=== PATIENT | female | born 1980 | race Caucasian/White ===

== ENCOUNTER 2020-01-23 02:28 | Observation (INO) | payer BC, OTHER ==
[2020-01-23] VITALS (7 sets, daily range): BP systolic 130–174; BP diastolic 69–88
[~2020-01-23] VITALS: Ht 167 cm; Wt 158.0 kg
[2020-01-23] MEDS ORDERED: METOCLOPRAMIDE INJ 10 MG/2 ML (REGLAN) IVP STA (02:50)
[2020-01-23] MEDS ORDERED: NS IV 1000 ML 1,000 ML IV STA (02:50)
--- NOTE | 2020-01-23 02:50 | ED Abdominal Pain ---
General Chief Complaint: Abdominal/GI Problems Stated Complaint: NAUSEA/VOMITTING Source of Information: Patient History of Present Illness Date Seen by Provider: Jan 23, 2020 Time Seen by Provider: 02:42 Initial Comments 39-year-old female presents because she "can't take it anymore" patient reports abdominal cramping, nausea vomiting diarrhea. Patient is having symptoms for approximately 2-1/2-3 days. No reports of fever. The pain is in the left upper quadrant and epigastric region. Patient has had a cholecystectomy. No reports of fever, cough or other systemic complaints. Allergies and Home Medications Allergies Coded Allergies: Sulfa (Sulfonamide Antibiotics) (Verified Allergy, Unknown, 01/23/20) Patient Home Medication List Home Medication List Reviewed: Yes Review of Systems Review of Systems Constitutional: No chills, No fever EENTM: No Symptoms Reported Respiratory: Denies Cough Cardiovascular: Denies Chest Pain Gastrointestinal: Abdominal Pain, Diarrhea, Nausea, Vomiting Musculoskeletal: no symptoms reported Skin: no symptoms reported Psychiatric/Neurological: No Symptoms Reported Past Ctwsjae-Wpouqj-Mectqt Hx Past Med/Social Hx: Reviewed Nursing Past Med/Soc Hx Patient Social History Recent Foreign Travel: No Contact w/Someone Who Travel: No Physical Exam Vital Signs Vital Signs - First Documented 01/23/20 02:37 Temp 37.2 Pulse 124 Resp 18 B/P (MAP) 160/111 (127) Pulse Ox 94 O2 Delivery Room Air Capillary Refill : Height/Weight/BMI Height: '" Weight: lbs. oz. kg; BMI Method: General Appearance: no apparent distress, obese Respiratory: chest non-tender, lungs clear, normal breath sounds Cardiovascular: normal peripheral pulses, regular rate, rhythm Gastrointestinal: soft; No distended, No guarding, No rebound; tenderness (RUQ. epigastric ) Extremities: normal range of motion, non-tender Back: no vertebral tenderness; No CVA tenderness (R), No CVA tenderness (L) Neurologic/Psychiatric: colorist formulator II-XII nml as tested, oriented x 3 Skin: normal color, warm/dry Progress/Results/Core Measures Results/Orders Lab Results Laboratory Tests Test 01/23/20 02:50 01/23/20 03:20 Range/Units White Blood Count 14.0 H 4.3-11.0 10^3/uL Red Blood Count 4.76 4.35-5.85 10^6/uL Hemoglobin 12.9 11.5-16.0 G/DL Hematocrit 41 35-52 % Mean Corpuscular Volume 86 80-99 FL Mean Corpuscular Hemoglobin 27 25-34 PG Mean Corpuscular Hemoglobin Concent 32 32-36 G/DL Red Cell Distribution Width 16.3 H 10.0-14.5 % Platelet Count 418 H 130-400 10^3/uL Mean Platelet Volume 9.1 7.4-10.4 FL Neutrophils (%) (Auto) 87 H 42-75 % Lymphocytes (%) (Auto) 8 L 12-44 % Monocytes (%) (Auto) 4 0-12 % Eosinophils (%) (Auto) 0 0-10 % Basophils (%) (Auto) 0 0-10 % Neutrophils # (Auto) 12.2 H 1.8-7.8 X 10^3 Lymphocytes # (Auto) 1.1 1.0-4.0 X 10^3 Monocytes # (Auto) 0.6 0.0-1.0 X 10^3 Eosinophils # (Auto) 0.1 0.0-0.3 10^3/uL Basophils # (Auto) 0.0 0.0-0.1 10^3/uL Neutrophils % (Manual) 86 % Lymphocytes % (Manual) 4 % Monocytes % (Manual) 6 % Eosinophils % (Manual) 1 % Reactive Lymphocytes 3 % Sodium Level 139 135-145 MMOL/L Potassium Level 3.8 3.6-5.0 MMOL/L Chloride Level 100 98-107 MMOL/L Carbon Dioxide Level 23 21-32 MMOL/L Anion Gap 16 H 5-14 MMOL/L Blood Urea Nitrogen 17 7-18 MG/DL Creatinine 0.74 0.60-1.30 MG/DL Estimat Glomerular Filtration Rate > 60 BUN/Creatinine Ratio 23 Glucose Level 141 H 70-105 MG/DL Calcium Level 9.4 8.5-10.1 MG/DL Corrected Calcium 9.2 8.5-10.1 MG/DL Total Bilirubin 0.5 0.1-1.0 MG/DL Aspartate Amino Transf (AST/SGOT) 15 5-34 U/L Alanine Aminotransferase (ALT/SGPT) 12 0-55 U/L Alkaline Phosphatase 101 40-136 U/L Total Protein 9.2 H 6.4-8.2 GM/DL Albumin 4.3 3.2-4.5 GM/DL Lipase 15 8-78 U/L Urine Color DARK YELLOW Urine Clarity SLIGHTLY CLOUDY Urine pH 6.0 5-9 Urine Specific [place] >=1.030 1.016-1.022 Urine Protein 1+ H NEGATIVE Urine Glucose (UA) NEGATIVE NEGATIVE Urine Ketones 2+ H NEGATIVE Urine Nitrite NEGATIVE NEGATIVE Urine Bilirubin 2+ H NEGATIVE Urine Urobilinogen 1.0 < = 1.0 MG/DL Urine Leukocyte Esterase NEGATIVE NEGATIVE Urine RBC (Auto) 1+ H NEGATIVE Urine RBC NONE /HPF Urine WBC 5-10 H /HPF Urine Squamous Epithelial Cells >50 H /HPF Urine Crystals NONE /LPF Urine Bacteria MODERATE H /HPF Urine Casts NONE /LPF Urine Mucus LARGE H /LPF Urine Yeast FEW H /HPF Urine Culture Indicated YES My Orders Orders - TEGAN RIVERA DO Comprehensive Metabolic Panel (01/23/20 02:50) Lipase (01/23/20 02:50) Ua Culture If Indicated (01/23/20 02:50) Ed Iv/Invasive Line Start (01/23/20 02:50) Acute Abd Series (01/23/20 02:50) Cbc With Automated Diff (01/23/20 02:50) Metoclopramide Injection (Reglan Injecti (01/23/20 02:50) Ns Iv 1000 Ml (Sodium Chloride 0.9%) (01/23/20 02:50) Ketorolac Injection (Toradol Injection) (01/23/20 03:00) Manual Differential (01/23/20 02:50) Urine Culture (01/23/20 03:20) Hyoscyamine Sl Tablet (Levsin Sl Tablet) (01/23/20 03:45) Dicyclomine Injection (Bentyl Injection) (01/23/20 03:45) Ct Abdomen/Pelvis W (01/23/20 03:43) Iohexol Injection (Omnipaque 350 Mg/Ml 1 (01/23/20 04:00) Ns (Ivpb) (Sodium Chloride 0.9% Ivpb Bag (01/23/20 04:00) Medications Given in ED Current Medications Medications Dose Ordered Sig/Wilner Route Start Time Stop Time Status Last Admin Dose Admin Dicyclomine HCl 20 mg ONCE ONCE IM 01/23/20 03:45 01/23/20 03:46 DC 01/23/20 03:48 20 MG Hyoscyamine Sulfate 0.125 mg ONCE ONCE SL 01/23/20 03:45 01/23/20 03:46 DC 01/23/20 03:48 0.125 MG Iohexol 100 ml ONCE ONCE IV 01/23/20 04:00 01/23/20 04:01 DC 01/23/20 04:20 100 ML Ketorolac Tromethamine 15 mg ONCE ONCE IVP 01/23/20 03:00 01/23/20 03:01 DC 01/23/20 02:57 15 MG Sodium Chloride 100 ml ONCE ONCE IV 01/23/20 04:00 01/23/20 04:01 DC 01/23/20 04:20 100 ML Vital Signs/I&O 01/23/20 02:37 Temp 37.2 Pulse 124 Resp 18 B/P (MAP) 160/111 (127) Pulse Ox 94 O2 Delivery Room Air Progress Progress Note : Time: 05:24 Progress Note Patient with 2 ventral abdominal wall hernias. There is some inflammation and fat stranding. There is questionable incarceration. Patient to be transferred to [facility] for admission by Dr. Richey. Diagnostic Imaging Diagonstic Imaging: Xray, CT Plain Films/CT/US/NM/MRI: abdomen Comments Patient with 2 ventral wall hernias with inflammation and stranding. Qu estionable incarceration Reviewed: Reviewed Night Osiel Study, Reviewed by Me Departure Communication (Admissions) Time/Spoke to Admitting Phy: 05:20 Impression Primary Impression: Abdominal wall hernia Additional Impression: Enteritis Disposition: ADMITTED INPATIENT Condition: Stable Admissions Decision to Admit Reason: Admit from ER (General) Decision to Admit/Date: Jan 23, 2020 Time/Decision to Admit Time: 05:20 Transfer Method of Transfer: EMS Departure-Patient Inst. Referrals: NO,LOCAL PHYSICIAN (PCP/Family) Primary Care Physician TEGAN RIVERA DO Jan 23, 2020 02:50
[2020-01-23 02:59] LABS: HEMATOCRIT 41 % (35-52); HEMOGLOBIN 12.9 G/DL (11.5-16.0); MEAN CORPUSCULAR HEMOGLOBIN 27 PG (25-34); MEAN CORPUSCULAR HGB CONC 32 G/DL (32-36); MEAN CORPUSCULAR VOLUME 86 FL (80-99); PLATELET COUNT 418 10^3/uL (130-400); RED CELL DISTRIBUTION WIDTH 16.3 % (10.0-14.5)
[2020-01-23 03:00] LABS: BASOPHILS % (AUTO) 0 % (0-10); EOSINOPHILS # (AUTO) 0.1 10^3/uL (0.0-0.3); EOSINOPHILS % (AUTO) 0 % (0-10); LYMPHOCYTES # (AUTO) 1.1 X 10^3 (1.0-4.0); LYMPHOCYTES % (AUTO) 8 % (12-44); MEAN PLATELET VOLUME 9.1 FL (7.4-10.4); MONOCYTES # (AUTO) 0.6 X 10^3 (0.0-1.0); MONOCYTES % (AUTO) 4 % (0-12); NEUTROPHILS # (AUTO) 12.2 X 10^3 (1.8-7.8); NEUTROPHILS % (AUTO) 87 % (42-75)
[2020-01-23] MEDS ORDERED: KETOROLAC 30 MG/ML VIAL IVP ONE (03:00)
[2020-01-23 03:15] LABS: ALANINE AMINOTRANSFERASE 12 U/L (0-55); ALKALINE PHOSPHATASE 101 U/L (40-136); BILIRUBIN,TOTAL 0.5 MG/DL (0.1-1.0); BUN/CREATININE RATIO 23; CALCIUM 9.4 MG/DL (8.5-10.1); CARBON DIOXIDE 23 MMOL/L (21-32); CHLORIDE 100 MMOL/L (98-107); CREATININE SERUM 0.74 MG/DL (0.60-1.30); GFR ESTIMATED > 60; GLUCOSE 141 MG/DL (70-105); POTASSIUM 3.8 MMOL/L (3.6-5.0); SODIUM 139 MMOL/L (135-145); TOTAL PROTEIN 9.2 GM/DL (6.4-8.2)
[2020-01-23 03:16] LABS: ALBUMIN 4.3 GM/DL (3.2-4.5); LIPASE 15 U/L (8-78)
[2020-01-23 03:29] LABS: CLARITY,URINE SLIGHTLY CLOUDY; COLOR,URINE DARK YELLOW; GLUCOSE, URINE (UA) NEGATIVE (NEGATIVE); PROTEIN,URINE 1+ (NEGATIVE)
[2020-01-23 03:29] LABS: EOSINOPHILS % (MANUAL) 1 %; LYMPHOCYTES % (MANUAL) 4 %; MONOCYTES % (MANUAL) 6 %; NEUTROPHILS % (MANUAL) 86 %; REACTIVE LYMPHOCYTES 3 %
[2020-01-23 03:30] LABS: BACTERIA,URINE MODERATE /HPF; BILIRUBIN,URINE 2+ (NEGATIVE); KETONES,URINE 2+ (NEGATIVE); LEUKOCYTE ESTERASE ,URINE NEGATIVE (NEGATIVE); NITRITE,URINE NEGATIVE (NEGATIVE); SQUAMOUS EPITHELIAL CELL,UR >50 /HPF
[2020-01-23 03:31] LABS: YEAST,URINE FEW /HPF
[2020-01-23] MEDS ORDERED: HYOSCYAMINE 0.125 MG (LEVSIN) TAB SL ONE (03:45)
[2020-01-23] MEDS ORDERED: DICYCLOMINE 10 MG/ML (BENTYL) 2 ML AMP IM ONE (03:45)
[2020-01-23] MEDS ORDERED: IOHEXOL 350 MG/ML 100 ML (OMNIPAQUE 350) VIAL IV ONE (04:00)
[2020-01-23] MEDS ORDERED: NS 100 ML (IVPB) BAG IV ONE (04:00)
[2020-01-23] MEDS ORDERED: NS IV 1000 ML 1,000 ML IV SCH (05:25)
--- NOTE | 2020-01-23 06:32 | Diagnostic Imaging Report ---
PROCEDURE: CT abdomen and pelvis with contrast. TECHNIQUE: Multiple contiguous axial images were obtained through the abdomen and pelvis after administration of intravenous contrast. Auto Exposure Controls were utilized during the CT exam to meet ALARA standards for radiation dose reduction. Indication: Mid abdominal pain with vomiting and diarrhea. Comparison: None. Discussion: The lung bases are unremarkable. Normal heart size. No pleural or pericardial fluid. Fatty liver is noted. The gallbladder surgically absent. Mild fatty atrophy of the pancreas. The stomach, spleen, and adrenal glands are unremarkable. No renal stone or hydronephrosis. The aorta is normal in caliber. Uterus is surgically absent. Urinary bladder is decompressed. No evidence for appendicitis. There are 2 ventral hernias noted, one near the umbilicus and the other near the pubis symphysis. Both of these contain fat and small bowel loops which are mildly thick-walled. Wall thickening could be secondary to enteritis or early incarceration. There is mild free fluid noted within the periumbilical hernia. Recommend surgical consultation. No high-grade obstruction identified. No pneumatosis or pneumoperitoneum. No pathologically enlarged lymph nodes identified. No osseous abnormality. Impression: 1. There are 2 ventral hernias noted within the lower abdominal wall which both contain thick-walled small bowel loops. A periumbilical hernia also contains a small amount of fluid. No high-grade obstruction identified. Early incarceration is not excluded. Additionally enteritis is not excluded. Recommend surgical consultation. 2. Agree with preliminary report. Dictated by: Dictated on workstation # [id number]
--- NOTE | 2020-01-23 06:45 | NUR ---
PIA GARCIA admitted to room 430-1, with an admitting diagnosis of ventral wall hernia, bowel inflammation, on 01/23/20 from [place] via cart, accompanied by EMS.PIA GARCIA introduced to surroundings, call light, bed controls, phone, TV, temperature control, lights, meal times, smoking policy, visitor policy, side rail policy, bathrooms and showers. Patient Rights given to patient in the handbook. PIA GARCIA verbalizes understanding that [facility] is not responsible for the loss or damage to any personal effects or valuables that are kept in the patients posession during their hospitalization.
--- NOTE | 2020-01-23 07:12 | Diagnostic Imaging Report ---
Indication: Abdominal pain. Comparison: None. Discussion: Supine and upright views of the abdomen were obtained. The heart and lungs are unremarkable. The gallbladder appears to be surgically absent. A nondilated gas-filled colon is noted on the left. No abnormal small bowel loops are identified. No pneumatosis or pneumoperitoneum. No osseous abnormality or pathologic calcification. Impression: 1. Nonobstructive bowel gas pattern. Dictated by: Dictated on workstation # [id number]
[2020-01-23] MEDS ORDERED: CATHETER FLUSH 10 ML SYR IV PRN (07:15)
--- NOTE | 2020-01-23 07:49 | History & Physical-Surgical ---
LULY TRAVIS MEDICAL STUDENT 01/23/20 0749: History of Present Illness History of Present Illness Reason for visit/HPI CC: Abdominal Pain HPI: Verónica Olivarez is a 39 y/o female. She presents to [facility] today, sent from [facility], for consultation on her multiple hernias. No family at bedside. Pt states she has been having abdominal pain and cramping for the past 3 days. She states the pain is in a "band" across her upper abdominal region as well as her umbilicus. Pt states the pain is sharp, and comes and goes. She states the pain radiates to her right back. She states movement and eating makes the pain worse. She states the pain is a 5/[address] on the [address] scale. CT abdomen showed 2 ventral hernias in the lower abdominal wall, as well s periumbilical hernia. The ED was worried about possible incarceration and enteritis. Pt states she is nauseated, had a vomiting episode earlier this morning, has diarrhea Pt denies fever, chest pain, SOB, chills Date of Admission Jan 23, 2020 at 05:30 Date Seen by a Provider: Jan 23, 2020 Time Seen by a Provider: 07:20 I consulted on this patient on 01/23/20 07:44 Attending Physician Madi Richey DO Admitting Physician No,Local Physician Consult Allergies and Home Medications Allergies Coded Allergies: Sulfa (Sulfonamide Antibiotics) (Verified Allergy, Unknown, 01/23/20) Home Medications Alprazolam 1 Mg Tablet, 1 MG PO PRN PRN for ANXIETY, (Reported) Aripiprazole 10 Mg Tablet, 10 MG PO DAILY, (Reported) Duloxetine HCl 60 Mg Capsule.dr, 60 MG PO DAILY, (Reported) Levothyroxine Sodium 137 Mcg Tablet, 137 MCG PO DAILY, (Reported) Tramadol HCl 50 Mg Tablet, 50 MG PO PRN PRN for PAIN-MILD (1-4), (Reported) Past Wbnywyq-Epbdax-Raocbb Hx Patient Social History Alcohol Use: Rarely Uses Recreational Drug Use: No Smoking Status: Current Everyday Smoker 2nd Hand Smoke Exposure: Yes Recent Foreign Travel: No Contact w/Someone Who Travel: No Recent Infectious Disease Expo: No Recent Hopitalizations: No Immunizations Up To Date Date of Influenza Vaccine: Nov 24, 2019 Surgeries History of Surgeries: Yes Surgeries: Section, Gallbladder, Hysterectomy Respiratory History of Respiratory Disorde: No Cardiovascular History of Cardiac Disorders: No Neurological History of Neurological Disord: No Genitourinary History of Genitourinary Disor: No Gastrointestinal History of Gastrointestinal Di: No Musculoskeletal History of Musculoskeletal Dis: No Endocrine History of Endocrine Disorders: No HEENT History of HEENT Disorders: No Cancer History of Cancer: No Psychosocial History of Psychiatric Problem: Yes Behavioral Health Disorders: Anxiety, Depression Integumentary History of Skin or Integumenta: No Blood Transfusions History of Blood Disorders: No Review of Systems Constitutional: No chills, No diaphoresis, No dizziness, No fever EENTM: No hearing loss, No ear pain, No vision loss Respiratory: No hemoptysis, No short of breath Cardiovascular: No chest pain (minimal right leg swelling); edema (minimal right leg swelling) Gastrointestinal: abdominal pain (LUQ, RUQ), diarrhea, nausea, vomiting Genitourinary: No dysuria, No frequency Musculoskeletal: back pain; No gout Skin: No change in color, No change in hair/nails Psychiatric/Neurological: Anxiety, Depressed, Headache Physical Exam Vital Signs Vital Signs - First Documented 01/23/20 02:37 Temp 37.2 Pulse 124 Resp 18 B/P (MAP) 160/111 (127) Pulse Ox 94 O2 Delivery Room Air Capillary Refill : Less Than 3 Seconds Height, Weight, BMI Height: '" Weight: lbs. oz. kg; 56.00 BMI Method: General Appearance: No Apparent Distress HEENT: PERRL/EOMI, TMs Normal Neck: Full Range of Motion, Normal Inspection Respiratory: Chest Non Tender, Lungs Clear, Normal Breath Sounds Cardiovascular: No JVD, No Murmur, Tachycardia Gastrointestinal: Soft, Hernia, Tenderness (ventral and periumbilical) Back: Normal Inspection; No Muscle Spasm Extremity: Normal Inspection, Normal Range of Motion, No Calf Tenderness, Pedal Edema (minimal) Neurologic/Psychiatric: Alert, Normal Mood/Affect Skin: Normal Color, Warm/Dry Lymphatic: No Adenopathy Data Review Labs Laboratory Tests 01/23/20 02:50: White Blood Count 14.0H, Red Blood Count 4.76, Hemoglobin 12.9, Hematocrit 41, Mean Corpuscular Volume 86, Mean Corpuscular Hemoglobin 27, Mean Corpuscular Hemoglobin Concent 32, Red Cell Distribution Width 16.3H, Platelet Count 418H, Mean Platelet Volume 9.1, Neutrophils (%) (Auto) 87H, Lymphocytes (%) (Auto) 8L, Monocytes (%) (Auto) 4, Eosinophils (%) (Auto) 0, Basophils (%) (Auto) 0, Neutrophils # (Auto) 12.2H, Lymphocytes # (Auto) 1.1, Monocytes # (Auto) 0.6, Eosinophils # (Auto) 0.1, Basophils # (Auto) 0.0, Neutrophils % (Manual) 86, Lymphocytes % (Manual) 4, Monocytes % (Manual) 6, Eosinophils % (Manual) 1, Reactive Lymphocytes 3, Sodium Level 139, Potassium Level 3.8, Chloride Level 100, Carbon Dioxide Level 23, Anion Gap 16H, Blood Urea Nitrogen 17, Creatinine 0.74, Estimat Glomerular Filtration Rate > 60, BUN/Creatinine Ratio 23, Glucose Level 141H, Calcium Level 9.4, Corrected Calcium 9.2, Total Bilirubin 0.5, Aspartate Amino Transf (AST/SGOT) 15, Alanine Aminotransferase (ALT/SGPT) 12, Alkaline Phosphatase 101, Total Protein 9.2H, Albumin 4.3, Lipase 15 01/23/20 03:20: Urine Color DARK YELLOW, Urine Clarity SLIGHTLY CLOUDY, Urine pH 6.0, Urine Specific [place] >=1.030, Urine Protein 1+H, Urine Glucose (UA) NEGATIVE, Urine Ketones 2+H, Urine Nitrite NEGATIVE, Urine Bilirubin 2+H, Urine Urobilinogen 1.0, Urine Leukocyte Esterase NEGATIVE, Urine RBC (Auto) 1+H, Urine RBC NONE, Urine WBC 5-10H, Urine Squamous Epithelial Cells >50H, Urine Crystals NONE, Urine Bacteria MODERATEH, Urine Casts NONE, Urine Mucus LARGEH, Urine Yeast FEWH , Urine Culture Indicated YES Clinical Quality Measures DVT/VTE Risk/Contraindication: Risk Factor Score Per Nursin RFS Level Per Nursing on Admit: 2=Moderate MADI RICHEY DO 01/23/20 1115: History of Present Illness History of Present Illness Reason for visit/HPI 39 year old female who has been having abdominal pain since Saturday. Patient states it is cramping twisting pain that varies in location along the top of her abdomen. She has nausea, vomiting and diarrhea. Since having more diarrhea she is feeling better. She rates the pain at a 5/10. Radiates into back on occasion. Patient states that the diarrhea seems to have made things better, Nothing she knows of really made worse. Patient has 2 hernias that she believes she has had for about 2 years. They are not causing any pain or discomfort at this time. She has a ct scan showing 2 incisional hernia one below umbilicus and other just above the pubic symphisis containing bowel. The small bowel has slight appearance of enteritis. Allergies and Home Medications Allergies Coded Allergies: Sulfa (Sulfonamide Antibiotics) (Verified Allergy, Unknown, 01/23/20) Home Medications Alprazolam 1 Mg Tablet, 1 MG PO PRN PRN for ANXIETY, (Reported) Aripiprazole 10 Mg Tablet, 10 MG PO DAILY, (Reported) Duloxetine HCl 60 Mg Capsule.dr, 60 MG PO DAILY, (Reported) Levothyroxine Sodium 137 Mcg Tablet, 137 MCG PO DAILY, (Reported) Tramadol HCl 50 Mg Tablet, 50 MG PO PRN PRN for PAIN-MILD (1-4), (Reported) Patient Home Medication List Home Medication List Reviewed: Yes Past Wosdefr-Tmfgrv-Yqxaia Hx Patient Social History Smoking Status: Current Everyday Smoker Type Used: Cigarettes Surgeries History of Surgeries: Yes Surgeries: Section, Gallbladder Reviewed Nursing Assessment Reviewed/Agree w Nursing PMH: Yes Family Medical History Significant Family History: No Pertinent Family Hx Review of Systems Constitutional: No chills, No diaphoresis, No dizziness, No fever EENTM: No hearing loss, No ear pain, No vision loss Respiratory: No dyspnea on exertion, No hemoptysis, No short of breath Cardiovascular: No chest pain (minimal right leg swelling) Gastrointestinal: abdominal pain (LUQ), diarrhea, nausea, vomiting Genitourinary: no symptoms reported; No dysuria, No frequency Musculoskeletal: back pain; No gout Skin: No change in color, No change in hair/nails Psychiatric/Neurological: Anxiety, Depressed, Headache Physical Exam General Appearance: No Apparent Distress HEENT: PERRL/EOMI, TMs Normal Neck: Full Range of Motion, Normal Inspection Respiratory: Chest Non Tender, No Accessory Muscle Use, No Respiratory Distress Cardiovascular: Regular Rate, Rhythm Gastrointestinal: Soft, Hernia (reducible incisonal x 2), Tenderness (along upper abdomen, left upper quadrant and epigastric area) Rectal: Deferred Neurologic/Psychiatric: Alert, Oriented x3, No Motor/Sensory Deficits, Normal Mood/Affect Skin: Normal Color, Warm/Dry Lymphatic: No Adenopathy Assessment/Plan Assessment/Plan Admission Diagonsis nausea vomiting diarrhea left upper quadrant epigastric abdominal pain enteritis incisional hernia x 2 Admission Status: Observation Assessment/Plan nausea vomiting diarrhea left upper quadrant epigastric abdominal pain enteritis incisional hernia x 2 Patient pain not associated with location of hernia, I feel most likely enteritis. IV fluids, bowel rest no surgical intervention at this time repeat labs in am. Supervisory-Addendum Brief Verification & Attestation Participated in pt care: history, MDM, physical Personally performed: exam, history, MDM, supervision of care Care discussed with: Medical Student Procedures: n/a Results interpretation: Verified all documentation Verification and Attestation of Medical Student E/M Service A medical student performed and documented this service in my presence. I reviewed and verified all information documented by the medical student and made modifications to such information, when appropriate. I personally performed the physical exam and medical decision making. Madi Richey, Jan 23, 2020,11:24 LULY TRAVIS MEDICAL STUDENT Jan 23, 2020 07:49 MADI RICHEY DO Jan 23, 2020 11:15
[2020-01-23] MEDS: NS IV 1000 ML 1,000 ML IV SCH ×3 (07:50→18:54)
[2020-01-23] MEDS ORDERED: ARIP10TA10 PO (09:17)
[2020-01-23] MEDS: ONDANSETRON 4 MG/2 ML (SDV) Z0FRAN IV PRN ×3 (09:20→18:53)
[2020-01-23] MEDS ORDERED: DULO60CA6 PO (09:31)
[2020-01-23] MEDS ORDERED: LEVO137T2 PO (09:31)
[2020-01-23] MEDS ORDERED: ALPR1TAB2 PO (09:34)
[2020-01-23] MEDS ORDERED: TRAM50TA3 PO (09:35)
--- NOTE | 2020-01-23 10:40 | NUR ---
DR HENDRICKSON NOTIFIED OF CONSULT
[2020-01-23] MEDS ORDERED: ENOXAPARIN 40 MG/0.4 ML (LOVENOX) SYR SQ SCH (14:45)
[2020-01-23] MEDS ORDERED: ALPRAZolam 1 MG (XANAX) TAB PO PRN (15:00)
--- NOTE | 2020-01-23 15:00 | Consultation - Hospitalist ---
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 Presents with vomiting that began 3 days ago. Diarrhea started yesterday with multiple foul smelling stools. Her abdomen had been very distended and tender especially on the left side. That is getting better. She is sitting up in a chair currently and appears to be in no distress. Source: patient Exam Limitations: no limitations Date Seen 01/23/20 Attending Physician Ramón Richey DO PCP Jazmin,Local Physician Referring Physician Rossi Date of Admission Jan 23, 2020 at 05:30 Home Medications & Allergies Home Medications Reviewed patient Home Medication Reconciliation performed by pharmacy medication reconciliations injection mold tooling technician and/or nursing. Patients Allergies have been reviewed. Allergies Allergies Coded Allergies Sulfa (Sulfonamide Antibiotics) (Verified Allergy, Unknown, 01/23/20) Past Rbfjljr-Pvtqga-Kbisxg Hx Past Med/Social Hx: Reviewed Nursing Past Med/Soc Hx Patient Social History Marrital Status: Employed/Student: employed Alcohol Use: Rarely Uses Recreational Drug Use: No Smoking Status: Current Everyday Smoker Type Used: Cigarettes 2nd Hand Smoke Exposure: Yes Recent Foreign Travel: No Contact w/other who traveled: No Recent Hopitalizations: No Recent Infectious Disease Expo: No Immunizations Up To Date Date of Influenza Vaccine: Nov 24, 2019 Past Medical History Surgeries: Section, Gallbladder Psychosocial: Anxiety, Depression History of Blood Disorders: No Family History No Pertinent Family Hx Review of Systems Constitutional: see HPI EENTM: no symptoms reported Respiratory: no symptoms reported Cardiovascular: no symptoms reported Gastrointestinal: abdominal pain (LUQ), diarrhea, nausea, vomiting Genitourinary: no symptoms reported Skin: no symptoms reported Psychiatric/Neurological: Depressed (since she hasn't been able to take her medication for 4 days) Physical Exam Physical Exam Vital Signs Vital Signs - First Documented 01/23/20 02:37 Temp 37.2 Pulse 124 Resp 18 B/P (MAP) 160/111 (127) Pulse Ox 94 O2 Delivery Room Air Capillary Refill : Less Than 3 Seconds Height, Weight, BMI Height: '" Weight: lbs. oz. kg; 56.00 BMI Method: General Appearance: No Apparent Distress, Obese HEENT: PERRL/EOMI, TMs Normal Neck: Full Range of Motion, Normal Inspection Respiratory: Chest Non Tender, No Accessory Muscle Use, No Respiratory Distress Cardiovascular: Regular Rate, Rhythm Gastrointestinal: Soft, Abnormal Bowel Sounds, Hernia (reducible incisonal x 2), Tenderness (along upper abdomen, left upper quadrant and epigastric area) Rectal: Deferred Back: Normal Inspection; No Muscle Spasm Extremity: Normal Inspection, Normal Range of Motion, No Calf Tenderness, Pedal Edema (minimal) Neurologic/Psychiatric: Alert, Oriented x3, No Motor/Sensory Deficits, Normal Mood/Affect Skin: Normal Color, Warm/Dry Lymphatic: No Adenopathy Results Results/Procedures Labs Laboratory Tests 01/23/20 02:50 Patient resulted labs reviewed. Imaging: Reviewed Imaging Report Assessment/Plan Assessment and Plan Assess & Plan/Chief Complaint abdominal pain resolving Vomiting with nausea resolving Diarrhea worsening History of depression No evidence of bowel obstruction at this time however she may have a resolving obstruction from adhesions. 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 Thank you for this consult will follow with you and restart her home medications Clinical Quality Measures DVT/VTE Risk/Contraindication: Risk Factor Score Per Nursin RFS Level Per Nursing on Admit: 2=Moderate AZEB HENDRICKSON MD Jan 23, 2020 14:59
--- NOTE | 2020-01-23 15:13 | NUR ---
ATTEMPTED TO CALL [facility] IN [place] TO CLARIFY DOSE NEEDED FOR HOME MEDS. PHARMACY IS CLOSED UNTIL SATURDAY
--- NOTE | 2020-01-23 15:21 | NUR ---
OK FOR PT TO HAVE PAUL AND NAZARIO PO PER DR BELTRÁN
[2020-01-23] MEDS: DULoxetine 30 MG (CYMBALTA) CAP PO SCH (15:23)
[2020-01-23] MEDS: ENOXAPARIN 60 MG/0.6 ML (LOVENOX) SYR SC SCH (16:20)
--- NOTE | 2020-01-23 17:50 | NUR ---
OK FOR PT TO RECEIVE PO FLAGYL AND LEVOTHYROXINE PER DR HENDRICKSON
--- NOTE | 2020-01-23 18:42 | NUR ---
PHARMACY CALLED FOR MED VERIFICATION X4 NO ANSWER.
[2020-01-23] MEDS: metroNIDAZOLE 500 MG (FLAGYL) TAB PO SCH ×2 (18:53→23:41)
[2020-01-23] MEDS: PROMETHAZINE INJ 25 MG/ML (PHENERGAN) AMP IVP PRN (21:00)
[2020-01-23] MEDS: ALPRAZolam 1 MG (XANAX) TAB PO PRN (23:41)
[2020-01-24] VITALS (8 sets, daily range): BP systolic 133–175; BP diastolic 78–99
[2020-01-24] MEDS: NS IV 1000 ML 1,000 ML IV SCH ×2 (01:19→08:18)
[2020-01-24] MEDS: ENOXAPARIN 60 MG/0.6 ML (LOVENOX) SYR SC SCH ×2 (05:19→18:09)
[2020-01-24] MEDS: LEVOTHYROXINE 112 MCG (LEVOTHROID) TAB PO SCH (05:19)
[2020-01-24] MEDS: metroNIDAZOLE 500 MG (FLAGYL) TAB PO SCH ×4 (05:19→23:59)
[2020-01-24] MEDS: LEVOTHYROXINE 25 MCG (LEVOTHROID) TAB PO SCH (05:19)
[2020-01-24 05:41] LABS: HEMOGLOBIN 11.4 G/DL (11.5-16.0); MEAN PLATELET VOLUME 9.3 FL (7.4-10.4); RED CELL DISTRIBUTION WIDTH 16.7 % (10.0-14.5); WHITE BLOOD COUNT 4.3 10^3/uL (4.3-11.0)
[2020-01-24 06:09] LABS: BUN/CREATININE RATIO 18; CALCIUM 7.7 MG/DL (8.5-10.1); CARBON DIOXIDE 18 MMOL/L (21-32); CHLORIDE 111 MMOL/L (98-107); CREATININE SERUM 0.71 MG/DL (0.60-1.30); GFR ESTIMATED > 60; GLUCOSE 84 MG/DL (70-105); MAGNESIUM 2.1 MG/DL (1.6-2.4); POTASSIUM 3.4 MMOL/L (3.6-5.0); SODIUM 139 MMOL/L (135-145)
[2020-01-24] MEDS: ONDANSETRON 4 MG/2 ML (SDV) Z0FRAN IV PRN ×4 (07:24→23:59)
[2020-01-24] MEDS: DULoxetine 30 MG (CYMBALTA) CAP PO SCH (08:17)
--- NOTE | 2020-01-24 08:38 | Progress Note - Surgery ---
LULY TRAVIS MEDICAL STUDENT 01/24/20 0838: Subjective Date Seen by a Provider: Jan 24, 2020 Time Seen by a Provider: 07:40 Subjective/Events-last exam Patient is alert and in no acute distress. No family at bedside Patient states her pain has gone down and she is feeling much better. She states her mental status and body are doing better than yesterday. Pt states she still has nausea and a headache, but she has had no vomiting episodes and no diarrhea this morning. Pt is currently NPO and wonders if she can have liquids No other questions or concerns at this time Patient had positive antigens for C.Diff but was negative for toxins A &B. C.diff precautions being taken. Further testing to be done. Pt denies fever, chest pain, SOB, constipation, chills Review of Systems General: No Chills, No Night Sweats HEENT: Head Aches; No Eye Pain Pulmonary: No Dyspnea, No Cough Cardiovascular: No: Chest Pain, Palpitations Gastrointestinal: Nausea; No: Vomiting, Abdominal Pain, Diarrhea Genitourinary: No Dysuria Musculoskeletal: No: neck pain, shoulder pain Neurological: No: Weakness, Numbness Objective Exam Vital Signs Date Time Temp Pulse Resp B/P (MAP) Pulse Ox O2 Delivery O2 Flow Rate FiO2 01/24/20 07:50 36.9 100 17 139/86 (103) 94 Room Air 01/24/20 03:37 36.0 101 17 141/83 (102) 94 Room Air 01/24/20 00:09 36.2 100 15 153/83 (106) 93 Room Air 01/23/20 20:00 Room Air 01/23/20 19:48 36.6 109 18 134/88 (103) 93 Room Air 01/23/20 17:33 36.7 102 18 141/81 93 Room Air 01/23/20 15:32 36.7 102 18 141/81 (101) 93 Room Air 01/23/20 11:27 36.1 72 17 174/79 (110) 91 Room Air 01/23/20 11:18 37.0 114 15 131/69 (89) 93 Room Air 01/23/20 09:06 37.0 112 15 130/72 (91) 95 Room Air I & O 01/24/20 07:00 Intake Total 2000 ml Balance 2000 ml Capillary Refill : Less Than 3 Seconds General Appearance: No Apparent Distress, Obese HEENT: PERRL/EOMI, TMs Normal Neck: Full Range of Motion, Normal Inspection Respiratory: Chest Non Tender, No Accessory Muscle Use, No Respiratory Distress Cardiovascular: Regular Rate, Rhythm Gastrointestinal: non tender, soft; No distended, No guarding, No rebound, No tenderness (RUQ. epigastric ) Extremity: Normal Inspection, Normal Range of Motion, No Calf Tenderness, Pedal Edema (minimal) Neurologic/Psychiatric: Alert, Oriented x3, No Motor/Sensory Deficits, Normal Mood/Affect Skin: Normal Color, Warm/Dry Lymphatic: No Adenopathy Results Lab Laboratory Tests 01/24/20 05:31: White Blood Count 4.3, Red Blood Count 4.12L, Hemoglobin 11.4L, Hematocrit 36, Mean Corpuscular Volume 87, Mean Corpuscular Hemoglobin 28, Mean Corpuscular Hemoglobin Concent 32, Red Cell Distribution Width 16.7H, Platelet Count 261, Mean Platelet Volume 9.3, Sodium Level 139, Potassium Level 3.4L, Chloride Level 111H, Carbon Dioxide Level 18L, Anion Gap 10, Blood Urea Nitrogen 13, Creatinine 0.71, Estimat Glomerular Filtration Rate > 60, BUN/Creatinine Ratio 18, Glucose Level 84, Calcium Level 7.7L, Magnesium Level 2.1 Microbiology 01/23/20 C. difficile DNA Amplification, Resulted Pending 01/23/20 C. difficile GDH Antigen & Toxins - Final, Resulted 01/23/20 Stool Culture, Resulted Pending Assessment/Plan Assessment/Plan Assessment/Plan nausea vomiting diarrhea left upper quadrant epigastric abdominal pain enteritis incisional hernia x 2 Possible C.Diff Vomiting and Diarrhea has resolved Abdominal pain has resolved Continue C.Diff protocol WBC trending down from 14 to 4.3 Start clear liquid diet Clinical Quality Measures DVT/VTE Risk/Contraindication: Risk Factor Score Per Nursin RFS Level Per Nursing on Admit: 2=Moderate MADI RICHEY DO 01/24/20 1620: Subjective Subjective/Events-last exam Feeling better today. Less diarrhea. On Flagyl. Npo, wanting liquids. O ccasional nausea with flagyl. No pain. Denies fever sweats chills shortness of breath or chest pain. WBC down. Objective Exam General Appearance: No Apparent Distress, Obese HEENT: PERRL/EOMI Neck: Full Range of Motion, Normal Inspection Respiratory: Chest Non Tender, No Accessory Muscle Use, No Respiratory Distress Cardiovascular: Regular Rate, Rhythm Gastrointestinal: non tender, soft; No distended, No guarding, No rebound, No tenderness (RUQ. epigastric ); hernia Extremity: Normal Inspection, Normal Range of Motion, No Calf Tenderness Neurologic/Psychiatric: Alert, Oriented x3, No Motor/Sensory Deficits, Normal Mood/Affect Skin: Normal Color, Warm/Dry Lymphatic: No Adenopathy Assessment/Plan Assessment/Plan Assessment/Plan nausea vomiting diarrhea left upper quadrant epigastric abdominal pain enteritis incisional hernia x 2 C.Diff start clears on Flagyl continue medical management no surgical intervention hernia's do not seem to cause her symptoms, we discussed weight loss and then repair Supervisory-Addendum Brief Verification & Attestation Participated in pt care: history, MDM, physical Personally performed: exam, history, MDM, supervision of care Care discussed with: Medical Student Procedures: n/a Results interpretation: Verified all documentation Verification and Attestation of Medical Student E/M Service A medical student performed and documented this service in my presence. I reviewed and verified all information documented by the medical student and made modifications to such information, when appropriate. I personally performed the physical exam and medical decision making. Madi Richey, Jan 24, 2020,16:24 LULY TRAVIS MEDICAL STUDENT Jan 24, 2020 08:38 MADI RICHEY DO Jan 24, 2020 16:20
[2020-01-24] MEDS ORDERED: NON-FORMULARY MEDICATION 1 EA EA (Levothyroxine Sodium 137 MCG) PO SCH (09:00)
[2020-01-24] MEDS ORDERED: NON-FORMULARY MEDICATION 1 EA EA (Duloxetine HCl (Cymbalta) 60 MG) PO SCH (09:00)
[2020-01-24] MEDS ORDERED: DULoxetine 30 MG (CYMBALTA) CAP PO SCH (09:00)
--- NOTE | 2020-01-24 14:03 | Progress Note - Hospitalist ---
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 Presents with vomiting that began 3 days ago. Diarrhea started yesterday with multiple foul smelling stools. Her abdomen had been very distended and tender especially on the left side. That is getting better. She is sitting up in a chair currently and appears to be in no distress. Subjective/Events-last exam Patient is feeling better . C diff is positive antigens are both negative. Patient was started on Flagyl with improvement in her diarrhea. She does complain of nausea with it. Objective Exam Vital Signs Vital Signs Date Time Temp Pulse Resp B/P (MAP) Pulse Ox O2 Delivery O2 Flow Rate FiO2 01/24/20 12:15 36.9 101 19 141/88 (105) 95 Room Air Capillary Refill : Less Than 3 Seconds General Appearance: No Apparent Distress, WD/WN HEENT: Normal ENT Inspection Results/Procedures Lab Laboratory Tests 01/24/20 05:31 Patient resulted labs reviewed. Imaging: Reviewed Imaging Report Assessment/Plan Assessment and Plan Assess & Plan/Chief Complaint abdominal pain resolving-on Flagyl day number 2 Vomiting with nausea resolving Diarrhea improving History of depression Clinical Quality Measures DVT/VTE Risk/Contraindication: Risk Factor Score Per Nursin RFS Level Per Nursing on Admit: 2=Moderate AZEB HENDRICKSON MD Jan 24, 2020 14:03
--- NOTE | 2020-01-24 15:58 | NUR ---
DR. HENDRICKSON NOTIFIED OF ELEVATED BP 175/99.
--- OUTSIDE RECORDS SUMMARY | 2020-01-24 17:33 | XMS REPORT ---
Author Author Amberly Verónica Doctor Organization [facility] Address Unknown Phone Unavailable Care Team Providers Care Coding Specialist Name Role Phone Migration, Doctor Unavailable Unavailable PROBLEMS Type Condition ICD9-CM Code [id number] Code Onset Dates Condition S tatus SNOMED Code Problem Anxiety F41.9 Active 78772739 Problem History of thyroid disease Z86.39 Act olegario 565277621 Problem Influenza with other respiratory manifestations 487.1 Active 9939903 Problem Moderate episode of recurrent major depressive disorder F33.1 Active 134641909 ALLERGIES No Information ENCOUNTERS Encounter Location Date Diagnosis [address] [address] May, [address] [address] March, Low back pain M54.[address] [address] Feb, Moderate episode of recurrent major depr essive disorder F33.[address] [address] Feb, Low back pain M54.[address] [address] Feb, Morbid obesity E66.01 ; History of thyro id disease Z86.39 ; Moderate episode of recurrent major depressive disorder F33.1 and Anxiety F41.[address] [address] Jan, Anxiety F41.[address] [address] Jan, Low back pain M54.[address] [address] Jan, Anxiety F41.[address] [address] Jan, Morbid obesity E66.01 ; Moderate episode of recurrent major depressive disorder F33.1 ; Anxiety F41.9 ; Low back pain M54.5 and Chronic pruritus L29.[address] [address] Jan, [address] [address] Jan, [address] [address] Dec, [address] [address] Dec, [place] [id number] [place] [address] Feb, [place] [address] [facility] [id number] [address] [place] [address] Feb, [place] [address] [facility] [id number] [address] [place] [address] Feb, [place] [address] [facility] [id number] [address] [place] [address] Feb, IMMUNIZATIONS No Known Immunizations SOCIAL HISTORY Never Assessed REASON FOR VISIT EMR-[facility] PLAN OF CARE VITAL SIGNS MEDICATIONS Unknown Medications RESULTS No Results PROCEDURES No Known procedures INSTRUCTIONS MEDICATIONS ADMINISTERED No Known Medications
--- OUTSIDE RECORDS SUMMARY | 2020-01-24 17:33 | XMS REPORT ---
Author Author Amberly Verónica Doctor Organization [facility] Address Unknown Phone Unavailable Care Team Providers Care Drilling Foreman Name Role Phone Migration, Doctor Unavailable Unavailable PROBLEMS Type Condition ICD9-CM Code [id number] Code Onset Dates Condition S tatus SNOMED Code Problem Anxiety F41.9 Active 75405642 Problem History of thyroid disease Z86.39 Act olegario 806387325 Problem Moderate episode of recurrent major depressive disorder F33.1 Active 412627730 ALLERGIES Substance Reaction Event Type Date Status Sulfa(sulfonamide Antibiotics) Unknown Non Drug Allergy Feb Active ENCOUNTERS Encounter Location Date Diagnosis [address] [address] May, [address] [address] Apr, Anxiety F41.[address] [address] March, Low back pain M54.[address] [address] Feb, Moderate episode of recurrent major depr essive disorder F33.[address] [address] Feb, Low back pain M54.[address] [address] Feb, Morbid obesity E66.01 ; History of thyro id disease Z86.39 ; Moderate episode of recurrent major depressive disorder F33.1 and Anxiety F41.[address] [address] Jan, Anxiety F41.[address] [address] Jan, Low back pain M54.[address] [address] Jan, Anxiety F41.9 [facility] [place] [address] [address] Jan, Morbid obesity E66.01 ; Moderate episode of recurrent major depressive disorder F33.1 ; Anxiety F41.9 ; Low back pain M54.5 and Chronic pruritus L29.[address] [place] [address] Jan, [facility] [place] [address] [address] Jan, [address] [place] [address] Dec, [address] [place] [address] Dec, [facility] [address] [facility] [id number] [address] [place] [phone] Feb, [facility] [address] [facility] [id number] [address] [place] [phone] Feb, [facility] [address] [facility] [id number] [address] [place] [address] Feb, [facility] [address] [facility] [id number] [address] [place] [phone] Feb, IMMUNIZATIONS No Known Immunizations SOCIAL HISTORY Never Assessed REASON FOR VISIT EMR-[facility] PLAN OF CARE VITAL SIGNS MEDICATIONS Medication Instructions Dosage Frequency Start Date End Date Duration S tatus Celexa 40 mg take 1 tablet (40 mg) by oral route once daily Feb, Active RESULTS No Results PROCEDURES No Known procedures INSTRUCTIONS MEDICATIONS ADMINISTERED No Known Medications
--- OUTSIDE RECORDS SUMMARY | 2020-01-24 17:33 | XMS REPORT ---
Author Author Verónica HENRIQUEZ Organization [facility] Address [address] [place] [address] Care Team Providers Care Tube Rebuilder Name Role Phone LEANDER HENRIQUEZ Unavailable PROBLEMS Type Condition ICD9-CM Code [id number] Code Onset Dates Condition S tatus SNOMED Code Problem Anxiety F41.9 Active 61490869 Problem History of thyroid disease Z86.39 Act olegario 063519413 Problem Moderate episode of recurrent major depressive disorder F33.1 Active 542738979 ALLERGIES No Information ENCOUNTERS Encounter Location Date Diagnosis [address] [address] May, Low back pain M54.5 [facility] [address] [facility] [id number] [address] [address] May, [address] [address] Apr, Anxiety F41.9 and Low back pain M54.[address] [address] Apr, Moderate episode of recurrent major depr essive disorder F33.1 and Low back pain M54.[address] [address] Apr, Anxiety F41.[address] [address] March, Low back pain M54.[address] [address] Feb, Moderate episode of recurrent major depr essive disorder F33.[address] [address] Feb, Low back pain M54.[address] [address] Feb, Morbid obesity E66.01 ; History of thyro id disease Z86.39 ; Moderate episode of recurrent major depressive disorder F33.1 and Anxiety F41.[address] [address] Jan, Anxiety F41.[address] [address] Jan, Low back pain M54.[address] [address] Jan, Anxiety F41.[address] [address] Jan, Morbid obesity E66.01 ; Moderate episode of recurrent major depressive disorder F33.1 ; Anxiety F41.9 ; Low back pain M54.5 and Chronic pruritus L29.[address] [address] Jan, [address] [address] Jan, [address] [address] Dec, [address] [address] Dec, [facility] [address] [facility] [id number] [address] [place] [address] Feb, [facility] [address] [facility] [id number] [address] [place] [phone] Feb, [facility] [address] [facility] [id number] [address] [place] [phone] Feb, [facility] [address] [facility] [id number] [address] [place] [address] Feb, IMMUNIZATIONS No Known Immunizations SOCIAL HISTORY Never Assessed REASON FOR VISIT Controlled 01/26 PLAN OF CARE VITAL SIGNS MEDICATIONS Medication Instructions Dosage Frequency Start Date End Date Duration S tatus Xanax 1 MG Orally 3 times a day 1 tablet as needed 8h Jan, 28 days Active RESULTS No Results PROCEDURES No Known procedures INSTRUCTIONS MEDICATIONS ADMINISTERED No Known Medications
--- OUTSIDE RECORDS SUMMARY | 2020-01-24 17:33 | XMS REPORT ---
Author Author Verónica HENRIQUEZ Organization [facility] Address [address] [place] [address] Care Team Providers Care Health Care Legal Assistant Name Role Phone LEANDER HENRIQUEZ Unavailable PROBLEMS Type Condition ICD9-CM Code ZYG27-DC Code Onset Dates Condition S tatus SNOMED Code Problem Moderate episode of recurrent major depressive disorder F33.1 Active 075039398 Problem Anxiety F41.9 Active 10602601 Problem Influenza with other respiratory manifestations 487.1 Active 2596322 ALLERGIES No Information ENCOUNTERS Encounter Location Date Diagnosis [address] [address] Feb, [address] [address] Jan, Anxiety F41.[address] [address] Jan, Low back pain M54.[address] [address] Jan, Anxiety F41.[address] [address] Jan, Morbid obesity E66.01 ; Moderate episode of recurrent major depressive disorder F33.1 ; Anxiety F41.9 ; Low back pain M54.5 and Chronic pruritus L29.[address] [address] Jan, [address] [address] Jan, [address] [address] Dec, [address] [address] Dec, [facility] [address] [place], [place] [id number] [address] [place] [phone] 14 Feb, 2015 [facility] [address] [facility] [id number] [address] [place] [address] Feb, [facility] [address] [facility] [id number] [address] [place] [phone] Feb, [facility] [address] [facility] [id number] [address] [place] [phone] Feb, IMMUNIZATIONS No Known Immunizations SOCIAL HISTORY Never Assessed REASON FOR VISIT PLAN OF CARE VITAL SIGNS MEDICATIONS Medication Instructions Dosage Frequency Start Date End Date Duration S kalpesh Trazodone HCl 50 MG Orally Once a day 1 tablet at bedtime as needed 24h Jan, 30 day(s) Active RESULTS No Results PROCEDURES No Known procedures INSTRUCTIONS MEDICATIONS ADMINISTERED No Known Medications
--- OUTSIDE RECORDS SUMMARY | 2020-01-24 17:34 | XMS REPORT | Continuity of Care Document ---
Author Organization Unknown Address Unknown Phone Unavailable Allergies There is no data. Medications There is no data. Problems There is no data. Procedures There is no data. Results Test Result Range LIPID PANEL - 02/19/19 08:30 CHOLESTEROL, TOTAL 134 mg/dL <200 HDL CHOLESTEROL 41 mg/dL >50 TRIGLYCERIDES 116 mg/dL <150 LDL-CHOLESTEROL 73 mg/dL (calc) NRG CHOL/HDLC RATIO 3.3 (calc) <5.0 NON HDL CHOLESTEROL 93 mg/dL (calc) <130 CMP - 02/19/19 08:30 GLUCOSE 95 mg/dL 65-99 UREA NITROGEN (BUN) 13 mg/dL 7-25 CREATININE 0.70 mg/dL 0.50-1.10 eGFR NON-AFR. MONGOLIAN 109 mL/min/1.73m2 > OR = 60 eGFR 126 mL/min/1.73m2 > OR = 60 BUN/CREATININE RATIO NOT APPLICABLE (calc) 6-22 SODIUM 139 mmol/L 135-146 POTASSIUM 4.1 mmol/L 3.5-5.3 CHLORIDE 105 mmol/L 98-110 CARBON DIOXIDE 26 mmol/L 20-32 CALCIUM 9.2 mg/dL 8.6-10.2 PROTEIN, TOTAL 7.3 g/dL 6.1-8.1 ALBUMIN 3.7 g/dL 3.6-5.1 GLOBULIN 3.6 g/dL (calc) 1.9-3.7 ALBUMIN/GLOBULIN RATIO 1.0 (calc) 1.0-2. 5 BILIRUBIN, TOTAL 0.3 mg/dL 0.2-1.2 ALKALINE PHOSPHATASE 84 U/L 33-115 AST 10 U/L 10-30 ALT 9 U/L 6-29 TSH - 02/19/19 08:30 TSH 7.30 mIU/L NRG PDM - 09 PANEL (PROFILE 1) - 09/04/19 16 :41 Prescribed Drug 1 Xanax(TM) NRG Creatinine 97.0 mg/dL > or = 20.0 pH 6.6 4.5-9.0 Oxidant NEGATIVE mcg/mL <200 Amphetamines NEGATIVE ng/mL <500 medMATCH Amphetamines CONSISTENT NRG Benzodiazepines POSITIVE ng/mL <100 Marijuana Metabolite NEGATIVE ng/mL <20 medMATCH Marijuana Metab CONSISTENT NRG Cocaine Metabolite NEGATIVE ng/mL <150 medMATCH Cocaine Metab CONSISTENT NRG Opiates NEGATIVE ng/mL <100 medMATCH Opiates CONSISTENT NRG Oxycodone NEGATIVE ng/mL <100 medMATCH Oxycodone CONSISTENT NRG COMMENT NRG Alphahydroxyalprazolam 218 ng/mL <25 medMATCH aOH alprazolam CONSISTENT NRG Alphahydroxymidazolam NEGATIVE ng/mL < 50 medMATCH aOH midazolam CONSISTENT NRG Alphahydroxytriazolam NEGATIVE ng/mL < 50 medMATCH aOH triazolam CONSISTENT NRG Aminoclonazepam NEGATIVE ng/mL <25 medMATCH Aminoclonazepam CONSISTENT NRG Hydroxyethylflurazepam NEGATIVE ng/mL <50 medMATCH OH,Et flurazepam CONSISTENT NR G Lorazepam NEGATIVE ng/mL <50 medMATCH Lorazepam CONSISTENT NRG Nordiazepam NEGATIVE ng/mL <50 medMATCH Nordiazepam CONSISTENT NRG Oxazepam NEGATIVE ng/mL <50 medMATCH Oxazepam CONSISTENT NRG Temazepam NEGATIVE ng/mL <50 medMATCH Temazepam CONSISTENT NRG Barbiturates NEGATIVE ng/mL <300 medMATCH Barbiturates CONSISTENT NRG Methadone Metabolite NEGATIVE ng/mL <100 medMATCH Methadone Metab CONSISTENT NRG Phencyclidine NEGATIVE ng/mL <25 medMATCH Phencyclidine CONSISTENT NRG Complete blood count (CBC) with automate d white blood cell (WBC) differential - 01/23/20 02:50 Blood leukocytes automated count (number/volume) 14.0 10*3/uL 4.3-11.0 Blood erythrocytes automated count (number/volume) 4.76 10*6/uL 4.35-5.85 Venous blood hemoglobin measurement (mass/volume) 12.9 g/dL 11.5-16.0 Blood hematocrit (volume fraction) 41 % 35-52 Automated erythrocyte mean corpuscular volume 86 [ foz_us] 80-99 Automated erythrocyte mean corpuscular h emoglobin (mass per erythrocyte) 27 pg 25-34 Automated erythrocyte mean corpuscular h emoglobin concentration measurement (mass/volume) 32 g/dL 32-36 Automated erythrocyte distribution width ratio 16. 3 % 10.0- 14.5 Automated blood platelet count (count/volume) 418 10*3/uL 130-400 Automated blood platelet mean volume measurement 9.1 [foz_us] 7.4-10.4 Automated blood neutrophils/100 leukocytes 87 % 42-75 Automated blood lymphocytes/100 leukocytes 8 % 12-44 Blood monocytes/100 leukocytes 4 % 0-12 Automated blood eosinophils/100 leukocytes 0 % 0-10 Automated blood basophils/100 leukocytes 0 % 0-10 Blood neutrophils automated count (number/volume) 12.2 10*3 1.8-7.8 Blood lymphocytes automated count (number/volume) 1.1 10*3 1.0-4.0 Blood monocytes automated count (number/volume) 0. 6 10*3 0.0-1.0 Automated eosinophil count 0.1 10*3/uL 0 .0-0.3 Automated blood basophil count (count/volume) 0.0 10*3/uL 0.0-0.1 Comprehensive metabolic panel - 01/23/20 02:50 Serum or plasma sodium measurement (moles/volume) 139 mmol/L 135-145 Serum or plasma potassium measurement (moles/volume) 3.8 mmol/L 3.6-5.0 Serum or plasma chloride measurement (moles/volume) 100 mmol/L 98-107 Carbon dioxide 23 mmol/L 21-32 Serum or plasma anion gap determination (moles/volume) 16 mmol/L 5-14 Serum or plasma urea nitrogen measurement (mass/volume ) 17 mg/dL 7-18 Serum or plasma creatinine measurement (mass/volume) 0.74 mg/dL 0.60-1.30 Serum or plasma urea nitrogen/creatinine mass ratio 23 NRG Serum or plasma creatinine measurement w ith calculation of estimated glomerular filtration rate > NRG Serum or plasma glucose measurement (mass/volume) 141 mg/dL 70-105 Serum or plasma calcium measurement (mass/volume) 9.4 mg/dL 8.5-10.1 Serum or plasma total bilirubin measurement (mass/volu me) 0.5 mg/dL 0.1-1.0 Serum or plasma alkaline phosphatase toby surement (enzymatic activity/volume) 101 U/L 40-136 Serum or plasma aspartate aminotransfera se measurement (enzymatic activity/volume) 15 U/L 5-34 Serum or plasma alanine aminotransferase measurement (enzymatic activity/volume) 12 U/L 0-55 Serum or plasma protein measurement (mass/volume) 9.2 g/dL 6.4-8.2 Serum or plasma albumin measurement (mass/volume) 4.3 g/dL 3.2-4.5 CALCIUM CORRECTED 9.2 mg/dL 8.5-10.1 Lipase - 01/23/20 02:50 Lipase 15 U/L 8-78 Manual absolute plasma cell count - 01/09 02/28 02:50 Blood monocytes/100 leukocytes 6 % NRG Manual blood segmented neutrophils/100 leukocytes 86 % NRG Manual blood lymphocytes/100 leukocytes 4 % NRG Manual eosinophils/100 leukocytes in nose 1 % NRG Blood lymphocytes variant/100 leukocytes 3 % NRG Complete urinalysis with reflex to cultu re - 01/23/20 03:20 Urine color determination DARK YELLOW N RG Urine clarity determination SLIGHTLY CLOUDY NRG Urine pH measurement by test strip 6.0 5-9 Specific gravity of urine by test strip >= 1.016-1.022 Urine protein assay by test strip, semi-quantitative 1+ NEGATIVE Urine glucose detection by automated test strip NE GATIVE NEGATIVE Erythrocytes detection in urine sediment by light micr oscopy 1+ NEGATIVE Urine ketones detection by automated test strip 2+ NEGATIVE Urine nitrite detection by test strip NEGATIVE NEGATIVE Urine total bilirubin detection by test strip 2+ NEGATIVE Urine urobilinogen measurement by automated test strip (mass/volume) 1.0 mg/dL < = 1.0 Urine leukocyte esterase detection by dipstick NEG ATIVE NEGATIVE Automated urine sediment erythrocyte cou nt by microscopy (number/high power field) NONE NRG Automated urine sediment leukocyte count by microscopy (number/high power field) [HPF] NRG Bacteria detection in urine sediment by light microsco py MODERATE NRG Squamous epithelial cells detection in u rine sediment by light microscopy >50 NRG Crystals detection in urine sediment by light microsco py NONE NRG Casts detection in urine sediment by light microscopy NONE NRG Mucus detection in urine sediment by light microscopy LARGE NRG Complete urinalysis with reflex to culture YES NRG Yeast detection in urine sediment by light microscopy FEW NRG C DIFFICILE AG + TOXIN A/B. - 01/23/20 1 5:57 FREE TEXT ENTRY 2 POSITIVE FOR GDH ANTIGEN NRG FREE TEXT ENTRY 3 NEGATIVE FOR TOXINS A AND B NRG RESULTS INDETERMINANT; MOLECULAR TEST TO FOLLOW NRG FREE TEXT ENTRY 4 MOLECULAR TEXT TO FOLLOW NRG Automated blood complete blood count (he mogram) panel - 01/24/20 05:31 Blood leukocytes automated count (number/volume) 4.3 10*3/uL 4.3-11.0 Blood erythrocytes automated count (number/volume) 4.12 10*6/uL 4.35-5.85 Venous blood hemoglobin measurement (mass/volume) 11.4 g/dL 11.5-16.0 Blood hematocrit (volume fraction) 36 % 35-52 Automated erythrocyte mean corpuscular volume 87 [ foz_us] 80-99 Automated erythrocyte mean corpuscular h emoglobin (mass per erythrocyte) 28 pg 25-34 Automated erythrocyte mean corpuscular h emoglobin concentration measurement (mass/volume) 32 g/dL 32-36 Automated erythrocyte distribution width ratio 16. 7 % 10.0- 14.5 Automated blood platelet count (count/volume) 261 10*3/uL 130-400 Automated blood platelet mean volume measurement 9.3 [foz_us] 7.4-10.4 Whole blood basic metabolic panel - 01/09 03/30 05:31 Serum or plasma sodium measurement (moles/volume) 139 mmol/L 135-145 Serum or plasma potassium measurement (moles/volume) 3.4 mmol/L 3.6-5.0 Serum or plasma chloride measurement (moles/volume) 111 mmol/L 98-107 Carbon dioxide 18 mmol/L 21-32 Serum or plasma anion gap determination (moles/volume) 10 mmol/L 5-14 Serum or plasma urea nitrogen measurement (mass/volume ) 13 mg/dL 7-18 Serum or plasma creatinine measurement (mass/volume) 0.71 mg/dL 0.60-1.30 Serum or plasma urea nitrogen/creatinine mass ratio 18 NRG Serum or plasma creatinine measurement w ith calculation of estimated glomerular filtration rate > NRG Serum or plasma glucose measurement (mass/volume) 84 mg/dL 70-105 Serum or plasma calcium measurement (mass/volume) 7.7 mg/dL 8.5-10.1 Magnesium - 01/24/20 05:31 Magnesium 2.1 mg/dL 1.6-2.4 Encounters ACCT No. Visit Date/Time Discharge Status Pt. Type Provider Facility Loc./Unit Complaint [id number] 11/05/2019 08:00:00 11/05/2019 23:59: 59 [facility] [id number] 09/04/2019 16:30:00 Document Registration [id number] 02/19/2019 08:00:00 Document Registration [id number] 01/23/2020 03:00:00 Document Registration
--- OUTSIDE RECORDS SUMMARY | 2020-01-24 17:35 | XMS REPORT | Continuity of Care Document ---
[...] 7-25 CREATININE 0.70 mg/dL 0.50-1.10 eGFR NON-AFR. ALBANIAN 109 mL/min/1.73m2 > OR = 60 eGFR [...] Status Pt. Type Provider Facility Loc./Unit Complaint [id number] 11/05/2019 08:00:00 11/05/2019 23:59: 59 [facility] [id number] 09/04/2019 16:30:00 Document Registration [id number] 02/19/2019 08:00:00 Document Registration [id number] 01/23/2020 03:00:00 Document Registration
[2020-01-24] MEDS: ALPRAZolam 1 MG (XANAX) TAB PO PRN (20:28)
[2020-01-24] MEDS: PROMETHAZINE INJ 25 MG/ML (PHENERGAN) AMP IVP PRN (21:48)
[2020-01-25 00:27] VITALS: BP 132/88
[2020-01-25] MEDS: LEVOTHYROXINE 112 MCG (LEVOTHROID) TAB PO SCH (06:16)
[2020-01-25] MEDS: ONDANSETRON 4 MG/2 ML (SDV) Z0FRAN IV PRN ×2 (06:16→11:43)
[2020-01-25] MEDS: LEVOTHYROXINE 25 MCG (LEVOTHROID) TAB PO SCH (06:16)
[2020-01-25] MEDS: metroNIDAZOLE 500 MG (FLAGYL) TAB PO SCH (06:16)
[2020-01-25] MEDS: ENOXAPARIN 60 MG/0.6 ML (LOVENOX) SYR SC SCH (06:16)
[2020-01-25 08:00] VITALS: BP 171/90
[2020-01-25] MEDS ORDERED: VANCOMYCIN 50 MG/ML ORAL SOLN 150 ML PO SCH ×2 (08:00→10:15)
[2020-01-25] MEDS: DULoxetine 30 MG (CYMBALTA) CAP PO SCH (08:39)
[2020-01-25] MEDS: NS IV 1000 ML 1,000 ML IV SCH (08:39)
[2020-01-25] MEDS: PROMETHAZINE INJ 25 MG/ML (PHENERGAN) AMP IVP PRN (08:40)
--- NOTE | 2020-01-25 09:58 | Progress Note - Surgery ---
LULY TRAVIS MEDICAL STUDENT 01/25/20 0958: Subjective Date Seen by a Provider: Jan 25, 2020 Time Seen by a Provider: 07:45 Subjective/Events-last exam Patient is alert and in no acute distress. No family at bedside Patient states her abdominal pain still persists. Pt states she still has nausea and a headache, but she has had no vomiting episodes. Pt states she has diarrhea 7 times yesterday. Pt is currently on clear liquid diet, and wonders if she can start regular food. No other questions or concerns at this time Patient is positive for C.Diff by molecular testing. Pt denies fever, chest pain, SOB, constipation, chills Review of Systems General: No Chills HEENT: Head Aches; No Eye Pain Pulmonary: No Dyspnea, No Cough Cardiovascular: No: Chest Pain, Orthopnea Gastrointestinal: Nausea, Abdominal Pain, Diarrhea; No: Vomiting Genitourinary: No Dysuria, No Frequency Musculoskeletal: No: neck pain, shoulder pain Neurological: No: Weakness, Numbness Objective Exam Vital Signs Date Time Temp Pulse Resp B/P (MAP) Pulse Ox O2 Delivery O2 Flow Rate FiO2 01/25/20 08:00 95 Room Air 01/25/20 08:00 36.5 107 22 171/90 (117) 95 Room Air 01/25/20 00:27 36.5 100 20 132/88 (103) 91 Room Air 01/24/20 20:25 Room Air 01/24/20 19:21 36.7 102 15 146/78 (100) 94 Room Air 01/24/20 17:11 133/85 (101) 01/24/20 16:58 172/93 (119) 01/24/20 15:37 36.0 106 15 175/99 (124) 94 Room Air 01/24/20 12:15 36.9 101 19 141/88 (105) 95 Room Air I & O 01/25/20 07:00 Intake Total 2280 ml Balance 2280 ml Capillary Refill : NONE General Appearance: No Apparent Distress, Obese HEENT: PERRL/EOMI Neck: Full Range of Motion, Normal Inspection Respiratory: Chest Non Tender, No Accessory Muscle Use, No Respiratory Distress Cardiovascular: Regular Rate, Rhythm Gastrointestinal: non tender, soft; No distended, No guarding, No rebound; tenderness (minimal- RUQ. epigastric ), hernia Extremity: Normal Inspection, Normal Range of Motion, No Calf Tenderness Neurologic/Psychiatric: Alert, Oriented x3, No Motor/Sensory Deficits, Normal Mood/Affect Skin: Normal Color, Warm/Dry Lymphatic: No Adenopathy Results Lab Microbiology 01/23/20 C. difficile DNA Amplification - Final, Resulted 01/23/20 C. difficile GDH Antigen & Toxins - Final, Resulted 01/23/20 Stool Culture, Resulted Pending 01/23/20 Urine Culture - Final, Complete 3 or more isolates Assessment/Plan Assessment/Plan Assessment/Plan C.Diff nausea vomiting diarrhea left upper quadrant epigastric abdominal pain enteritis incisional hernia x 2 Currently on Flagyl, switch to oral vancomycin continue medical management no surgical intervention hernia's do not seem to cause her symptoms, we discussed weight loss and then repair Clinical Quality Measures DVT/VTE Risk/Contraindication: Risk Factor Score Per Nursin RFS Level Per Nursing on Admit: 2=Moderate MADI RICHEY DO 01/26/200: Subjective Subjective/Events-last exam Patient feeling better. Still some abdominal pain but signicantly improved. Less diarrhea today. Tolerating clears. Wanting food. Occasional nausea. Wanting to go home. Denies fever sweats chills shortness of breath or chest pain. Cdiff positive with amplification. On oral Vanc Objective Exam General Appearance: No Apparent Distress, Obese HEENT: PERRL/EOMI Neck: Full Range of Motion, Normal Inspection Respiratory: Chest Non Tender, No Accessory Muscle Use, No Respiratory Distress Cardiovascular: Regular Rate, Rhythm Gastrointestinal: non tender, soft, tenderness (minimal- RUQ. epigastric ), hernia (incisional x 2) Extremity: Normal Inspection Neurologic/Psychiatric: Alert, Oriented x3, No Motor/Sensory Deficits, Normal Mood/Affect Skin: Normal Color, Warm/Dry Lymphatic: No Adenopathy Assessment/Plan Assessment/Plan Assessment/Plan C.Diff nausea vomiting diarrhea left upper quadrant epigastric abdominal pain enteritis incisional hernia x 2 Oral vancomycin hernia not symptomatic discussed recurrence rate with her and weight loss would be beneficial, she is considering bariatric surgery already wanting to go home, will dc with follow up any issues before that be seen at that time. Supervisory-Addendum Brief Verification & Attestation Participated in pt care: history, MDM, physical Personally performed: exam, history, MDM, supervision of care Care discussed with: Medical Student Procedures: n/a Results interpretation: Verified all documentation Verification and Attestation of Medical Student E/M Service A medical student performed and documented this service in my presence. I reviewed and verified all information documented by the medical student and made modifications to such information, when appropriate. I personally performed the physical exam and medical decision making. Madi Richey, Jan 25, 2020,21:39 LULY TRAVIS MEDICAL STUDENT Jan 25, 2020 09:58 MADI RICHEY DO Jan 26, 2020 21:40
[2020-01-25] MEDS ORDERED: RELABEL FOR HOME USE MC SCH (10:15)
[2020-01-25] MEDS ORDERED: RELABEL FOR HOME USE MC ×2 (11:30→11:34)
--- NOTE | 2020-01-25 11:32 | NUR ---
RD ASSESSMENT PMHx: No significant PMH PT INTERACTION: Pt was awake and pleasant during nutrition assessment. Pt states current appetite is "so-so" and has been this way since she got ill last Saturday (01/19). Note avg PO intake <25% x1d, per chart review. Pt states following a regular diet at home, and has no issues with chewing/swallowing food. Pt states recent episodes of nausea and vomiting occuring since 01/19, and episodes of diarrhea occuring since 01/21. Note last BM was 01/24 and pt not currently on bowel regimen per chart review. Pt states recent wt gain of "a lot", but did not specify amount/timeframe. Note unable to determine recent wt hx, per chart review. ABNORMAL NUTRITION-RELATED LAB VALUES LOW: K 3.4; Ca 7.7 HIGH: Cl 111 Est. kcal needs: 8500-9336 kcal | 25-30 kcal/kg IBW, based on IBW of 56.8 kg (125#) Est. Pro needs: 57-68 g Pro | 1.0-1.2 g Pro/kg IBW, based on IBW of 56.8 kg (125#) PES STATEMENT: Inadequate oral intake (NI-2.1) related to loss of appetite | nausea | vomiting | diarrhea as evidenced by pt interview | avg PO intake <25% x1d INTERVENTION: Continue with current diet order of Clear Liquid diet. Recommend diet advancement as medically able, and as tolerated. Pt may benefit from nutrition supplementation if PO intake remains low. Will continue to follow and reassess as pt needs, intake, and status change. MONITOR/EVALUATE: PO Intake; Plan of Care; Hydration Status; Weight Status; Lab Values Marti Nunez, MS, RD, LD
--- NOTE | 2020-01-25 11:32 | Discharge Inst-Simple/Standard ---
Discharge Inst-Standard Patient Instructions/Follow Up Plan of Care/Instructions/FU: 2-3 weeks Rossi Your primary care provider in 1-2 weeks. Activity as Tolerated: Yes Discharge Diet: Regular Diet Other Inst to Patient Follow up Appt: Make appointment for 2-3 weeks Rossi Your primary care provider in 1-2 weeks. C diff precautions. Hand washing is important with soap and water and fr equently. Skin/Wound Care: You have special glue over your incision that will fall off on it's own. Symptoms to Report: Appetite Changes, Extremity Discoloration, Numbness/Tingling, Swelling Increased, Bleeding Excessive, Eyesight Changes, Pain Increased, Urine Color Change, Constipation(Persistent), Fever over 101 degree F, Pain/Pressure in chest, Urinating Difficulty, Cough Up/Vomit Blood, Heart Beat Irreg/Pounding, Pain/Pressure in jaw, Vaginal Bleeding Increase, Cramps in feet or legs, Lightheadedness, Pain/Pressure in shoulder, Diarrhea(Persistent), Memory Changes Suddenly, Questions/Concerns, Weight gain consecutive days, Dizziness/Fainting, Nausea/Vomiting, Shortness of Breath, Weight gain over 2 pounds If questions or concerns contact your physician Or seek help at emergency department. Planned Outpatient Orders/Ref. Pneu Vac Indicated: Yes MADI BELTRÁN DO Jan 25, 2020 11:32
[2020-01-25] MEDS ORDERED: ONDA4TAB11 PO (12:35)
== END 2020-01-25 13:30 | disposition home or self-care (01) ==
LOC: EDUNIT# 02:28 → ER FS 02:32 → 4TH 05:30
PROVIDERS: ADMIT Surgery; ATTEND Surgery
DX: A04.72 Enterocolitis due to Clostridium difficile, not specified as recurrent (principal); K43.9 Ventral hernia without obstruction or gangrene; K43.2 Incisional hernia without obstruction or gangrene; F41.9 Anxiety disorder, unspecified; F32.9 Major depressive disorder, single episode, unspecified; F17.210 Nicotine dependence, cigarettes, uncomplicated; Z88.2 Allergy status to sulfonamides; Z79.899 Other long term (current) drug therapy; Z90.710 Acquired absence of both cervix and uterus
CPT/HCPCS: 36415; 74022; 74177; 80048; 80053; 81000; 83690; 83735; 85007; 85027; 87015; 87045; 87046; 87088; 87324; 87449; 87493; 87899; G0378

== ENCOUNTER → 2020-03-01 | Outpatient (CLI) | payer OTHER ==
[~2020-03-01] MED LIST: ALPR1TAB2 PO; ARIP10TA10 PO; DULO60CA6 PO; LEVO137T2 PO; ONDA4TAB11 PO; RELABEL FOR HOME USE MC; TRAM50TA3 PO
--- NOTE | 2020-03-01 13:23 | Diagnostic Imaging Report ---
INDICATION: Injury, pain COMPARISON: None available. TECHNIQUE: Four radiographs of the right shoulder are dated 03/01/2020. FINDINGS: The acromioclavicular joint is unremarkable. No acute fracture or dislocation. No destructive osseous process. The subacromial space is well-maintained. The visualized right lung is clear. IMPRESSION: No acute osseous abnormality. Dictated by: Dictated on workstation # [id number]
== END ==
LOC: RAD FS 12:42
PROVIDERS: ATTEND Nurse Practitioner Family
DX: S49.91XA Unspecified injury of right shoulder and upper arm, initial encounter (principal); X58.XXXA Exposure to other specified factors, initial encounter
CPT/HCPCS: 73030

== ENCOUNTER 2020-03-29 21:53 | Observation (INO) | payer OTHER ==
[~2020-03-29] VITALS: Ht 167 cm; Wt 165.8 kg
--- OUTSIDE RECORDS SUMMARY | 2020-03-29 21:57 | XMS REPORT | Continuity of Care Document ---
Author Organization Unknown Address Unknown Phone Unavailable Allergies Active Description Code Type Severity Reaction Onset Reported/Identified Relationship to Patient Clinical Status Yes Sulfa (Sulfonamide Antibiotics) [id number] 0491 Drug Allergy Unknown N/A 020 Medications There is no data. Problems Date Dx Coded Attending Type Code Diagnosis Diagnosed By 01/25/2020 MADI BELTRÁN DO Ot A04. 72 ENTEROCOLITIS D/T CLOSTRIDIUM DIFFICILE, 01/25/2020 MADI BELTRÁN DO Ot F17.210 NICOTINE DEPENDENCE, CIGARETTES, UNCOMPL 01/25/2020 MADI BELTRÁN DO Ot F32. 9 MAJOR DEPRESSIVE DISORDER, SINGLE EPISOD 01/25/2020 MADI BELTRÁN DO Ot F41. 9 ANXIETY DISORDER, UNSPECIFIED 01/25/2020 MADI BELTRÁN DO Ot K43. 2 INCISIONAL HERNIA WITHOUT OBSTRUCTION OR 01/25/2020 MADI BELTRÁN DO Ot K43. 9 VENTRAL HERNIA WITHOUT OBSTRUCTION OR GA 01/25/2020 MADI BELTRÁN DO Ot Z79.899 OTHER LONGTERM (CURRENT) DRUG THERAPY 01/25/2020 MADI BELTRÁN DO Ot Z88. 2 ALLERGY STATUS TO SULFONAMIDES STATUS 01/25/2020 MADI BELTRÁN DO Ot Z90.710 ACQUIRED ABSENCE OF BOTH CERVIX AND UTER 01/25/2020 MADI BELTRÁN DO Ot A04. 72 ENTEROCOLITIS D/T CLOSTRIDIUM DIFFICILE, 01/25/2020 MADI BELTRÁN DO Ot F17.210 NICOTINE DEPENDENCE, CIGARETTES, UNCOMPL 01/25/2020 MADI BELTRÁN DO Ot F32. 9 MAJOR DEPRESSIVE DISORDER, SINGLE EPISOD 01/25/2020 MADI BELTRÁN DO Ot F41. 9 ANXIETY DISORDER, UNSPECIFIED 01/25/2020 HEIDE BELTRÁN DOTT Js Ot K43. 2 INCISIONAL HERNIA WITHOUT OBSTRUCTION OR 01/25/2020 MADI BELTRÁN DO Ot K43. 9 VENTRAL HERNIA WITHOUT OBSTRUCTION OR GA 01/25/2020 MADI BELTRÁN DO Ot Z79.899 OTHER LONGTERM (CURRENT) DRUG THERAPY 01/25/2020 [facility], MADI Weinstein Ot Z88. 2 ALLERGY STATUS TO SULFONAMIDES STATUS [facility] Z90.710 ACQUIRED ABSENCE OF BOTH CERVIX AND UTER [facility] A[facility]. 72 ENTEROCOLITIS D/T CLOSTRIDIUM DIFFICILE, [facility] F17.210 NICOTINE DEPENDENCE, CIGARETTES, UNCOMPL 02/10/2020 [facility], MADI D Ot F32. 9 MAJOR DEPRESSIVE DISORDER, SINGLE EPISOD 02/10/2020 [facility], MADI Weinstein Ot F41. 9 ANXIETY DISORDER, UNSPECIFIED 02/10[facility] K[facility]. 2 INCISIONAL HERNIA WITHOUT OBSTRUCTION OR [facility]/10[facility] K43. 9 VENTRAL HERNIA WITHOUT OBSTRUCTION OR GA [facility] Z79.899 OTHER TRAP PULLER (CURRENT) DRUG THERAPY [facility] Z88. 2 ALLERGY STATUS TO SULFONAMIDES STATUS [facility]/10[facility] Z90.710 ACQUIRED ABSENCE OF BOTH CERVIX AND UTER 03/02/2020 LEANDER HENRIQUEZ [employer] INSPECTOR Ot S49.91XA UNSP INJURY OF RIGHT SHOULDER AND UPPER 03/02/2020 LEANDER HENRIQUEZ [employer] INSPECTOR Ot X58.XXXA EXPOSURE TO OTHER SPECIFIED FACTORS, INI Procedures There is no data. Results Test [...] 7-25 CREATININE 0.70 mg/dL 0.50-1.10 eGFR NON-AFR. FIJIAN 109 mL/min/1.73m2 > OR = 60 eGFR [...] urine sediment by light microscopy FEW NRG Clostridium difficile DNA detection by p robe and target amplification method - 01/23/20 15:57 C DIFF MOLECULAR RESULT Positive for toxigen ic C diff by molecular method NRG CALL POSITIVES (F1 HELP) CALLED TO JAZ SPICER 01/24 06:43 BY Mattie DAVIDSON NRG C DIFFICILE AG + TOXIN A/B. - 01/23/20 1 5:57 FREE TEXT ENTRY 2 POSITIVE FOR GDH ANTIGEN NRG FREE TEXT ENTRY 3 NEGATIVE FOR TOXINS A AND B NRG RESULTS INDETERMINANT; MOLECULAR TEST TO FOLLOW NRG FREE TEXT ENTRY 4 MOLECULAR TEXT TO FOLLOW NRG Stool bacteria identification by culture - 01/23/20 15:57 Automated blood complete blood count (he mogram) [...] Status Pt. Type Provider Facility Loc./Unit Complaint [id number] 11/05/2019 08:00:00 11/05/2019 23:59: 59 CLS Outpatient [facility] [id number] 09/04/2019 16:30:00 Document Registration [id number] 02/19/2019 08:00:00 Document Registration [id number] 03/01/2020 12:42:00 23:59:59 CLS Outpatient LEANDER HENRIQUEZ [employer] INSPECT[employer] [facility] RAD FS INJURY OF RIGHT SHOULD ER [id number] 01/23/2020 06:45:00 11:27:00 DIS Inpatient MADI BELTRÁN DO [facility] 4TH NAUSEA/VOMITTING
--- NOTE | 2020-03-29 22:21 | ED Respiratory ---
General Chief Complaint: Respiratory Problems Stated Complaint: SOB Nursing Triage Note: PT. STATED SHE HAS HAD SOB FOR A COUPLE OF WEEKS BUT IT HAS BEEN REALLY BAD THE LAST COUPLE OF DAYS. PT. REPORTED TIGHTNESS IN HER CHEST RATING HER PAIN A 2 History of Present Illness Date Seen by Provider: March 29, 2020 Time Seen by Provider: 22:00 Initial Comments The patient is a 40-year-old female with a history of hypothyroidism, anxiety, depression, fibromyalgia and morbid obesity. She has a long-standing tobacco abuse history and continues to actively smoke but does not have a diagnosis of COPD. She has no known history of cardiovascular disease. She presents with concern for 1-2 weeks of worsening dyspnea with minimal exertion. Over the past 2 or 3 days she has been short of breath even at rest. She states this is all entirely new for her and she has never had this problem before. She reports associated swelling of her bilateral lower legs, a little worse than usual. Associated orthopnea; she reports having to sleep sitting up for the last 4 or 5 nights. Associated sensation of mild chest tightness but no alvin chest pain of any kind. No associated fevers, nausea or vomiting, upper respiratory congestion/rhinorrhea, sore throat, new or worsened cough of any kind, abdominal pain, flank pain, back pain, changes in bowel habits. Patient is alert and oriented and pleasantly and appropriately interactive and in no acute distress upon initial assessment here in the emergency department. Vital signs are remarkable for an oxygen saturation of about 94% on room air with a resting heart rate around 115. With ambulation down the mccallum to x-ray, oxygen saturation drops to 92%, pulse is 125 and the patient is noted to be tachypneic and winded. Allergies and Home Medications Allergies Coded Allergies: Sulfa (Sulfonamide Antibiotics) (Verified Allergy, Unknown, 01/23/20) Home Medications Alprazolam 1 Mg Tablet, 1 MG PO TID PRN for ANXIETY, (Reported) Aripiprazole 10 Mg Tablet, 10 MG PO DAILY, (Reported) Duloxetine HCl 60 Mg Capsule.dr, 60 MG PO DAILY, (Reported) Levothyroxine Sodium 137 Mcg Tablet, 137 MCG PO DAILY, (Reported) Ondansetron 4 Mg Tab.rapdis, 4 MG PO Q6H PRN for NAUSEA/VOMITING-1ST LINE Prescribed by: DANIEL HAMMER on 01/25/20 1235 [Relabel For Home Use] 1 EA EA, 125 MG MC Q6H Prescribed by: MADI BELTRÁN on 01/25/20 1134 Patient Home Medication List Home Medication List Reviewed: Yes Review of Systems Review of Systems Constitutional: see HPI All Other Systems Reviewed Negative Unless Noted: Yes (Negative excepted noted.) Past Pylngti-Ottzev-Wadozr Hx Past Med/Social Hx: Reviewed Nursing Past Med/Soc Hx Patient Social History Type Used: Cigarettes 2nd Hand Smoke Exposure: Yes Recent Foreign Travel: No Contact w/Someone Who Travel: No Recent Infectious Disease Expo: No Recent Hopitalizations: No Physical Abuse: No Sexual Abuse: No Mistreated: No Fear: No Immunizations Up To Date Date of Influenza Vaccine: Nov 24, 2019 Seasonal Allergies Seasonal Allergies: No Past Medical History Surgeries: Yes Section, Gallbladder Respiratory: No Cardiac: No Neurological: No Genitourinary: No Gastrointestinal: No Musculoskeletal: No Endocrine: No HEENT: No Cancer: No Psychosocial: Yes Anxiety, Depression Integumentary: No Blood Disorders: No Family Medical History Reviewed Nursing Family Hx No Pertinent Family Hx Physical Exam Vital Signs - First Documented 03/29/20 22:00 Temp 36.9 Pulse 114 Resp 16 B/P (MAP) 142/88 (106) O2 Delivery Room Air Capillary Refill : Less Than 3 Seconds Height: '" Weight: lbs. oz. kg; 48.00 BMI Method: General Appearance: no apparent distress This is a middle-aged female appearing nontoxic and in no acute distress. Head is normocephalic and atraumatic. Neck is supple and nontender. No JVD is evident however obesity limits evaluation. Oropharynx is moist. Lungs with very diminished BS bilaterally, worst at bases. No adventitious sounds auscultated. There is a normal S1 and S2 without rubs or gallops and capillary refill is appropriate, less than 2 seconds globally. There is a tachycardic, regular rhythm. Abdomen is soft, nontender and obese. Skin is warm and dry without cyanosis or clubbing and capillary refill is less than 2 seconds globally to all 4 extremities. There is 1+ pitting edema of bilateral lower extremities to about the level of the mid shins; left worse than right which patient states is typical for her. No calf tenderness, erythema or swelling. Psychiatrically, the patient demonstrates appropriate mood and affect and is alert. Progress/Results/Core Measures Suspected Sepsis Recent Fever Within 48 Hours: No Infection Criteria Present: None New/Unexplained Altered Menta: No Sepsis Screen: No Definite Risk SIRS Temperature: Pulse: 114 Respiratory Rate: 16 Laboratory Tests 03/29/20 22:26: White Blood Count 8.9 Blood Pressure 142 /88 Mean: 106 Laboratory Tests 03/29/20 22:26: Creatinine 0.70, INR Comment 0.9, Platelet Count 469H, Total Bilirubin 0.2 Results/Orders Lab Results Laboratory Tests Test 03/29/20 22:25 03/29/20 22:26 Range/Units Glucometer 131 H 70-110 MG/DL White Blood Count 8.9 4.3-11.0 10^3/uL Red Blood Count 4.57 4.35-5.85 10^6/uL Hemoglobin 11.9 11.5-16.0 G/DL Hematocrit 39 35-52 % Mean Corpuscular Volume 85 80-99 FL Mean Corpuscular Hemoglobin 26 25-34 PG Mean Corpuscular Hemoglobin Concent 31 L 32-36 G/DL Red Cell Distribution Width 16.4 H 10.0-14.5 % Platelet Count 469 H 130-400 10^3/uL Mean Platelet Volume 8.9 7.4-10.4 FL Neutrophils (%) (Auto) 68 42-75 % Lymphocytes (%) (Auto) 23 12-44 % Monocytes (%) (Auto) 6 0-12 % Eosinophils (%) (Auto) 2 0-10 % Basophils (%) (Auto) 0 0-10 % Neutrophils # (Auto) 6.0 1.8-7.8 X 10^3 Lymphocytes # (Auto) 2.1 1.0-4.0 X 10^3 Monocytes # (Auto) 0.5 0.0-1.0 X 10^3 Eosinophils # (Auto) 0.2 0.0-0.3 10^3/uL Basophils # (Auto) 0.0 0.0-0.1 10^3/uL Prothrombin Time 12.9 12.2-14.7 SEC INR Comment 0.9 0.8-1.4 Activated Partial Thromboplast Time 31 24-35 SEC D-Dimer 0.68 H 0.00-0.49 UG/ML Sodium Level 141 135-145 MMOL/L Potassium Level 4.2 3.6-5.0 MMOL/L Chloride Level 102 98-107 MMOL/L Carbon Dioxide Level 26 21-32 MMOL/L Anion Gap 13 5-14 MMOL/L Blood Urea Nitrogen 18 7-18 MG/DL Creatinine 0.70 0.60-1.30 MG/DL Estimat Glomerular Filtration Rate > 60 BUN/Creatinine Ratio 26 Glucose Level 145 H 70-105 MG/DL Calcium Level 9.6 8.5-10.1 MG/DL Corrected Calcium 9.6 8.5-10.1 MG/DL Total Bilirubin 0.2 0.1-1.0 MG/DL Aspartate Amino Transf (AST/SGOT) 17 5-34 U/L Alanine Aminotransferase (ALT/SGPT) 13 0-55 U/L Alkaline Phosphatase 107 40-136 U/L Troponin I < 0.30 <0.30 NG/ML C-Reactive Protein 1.93 H <0.50 MG/DL Pro-B-Type Natriuretic Peptide < 5.0 <75.0 PG/ML Total Protein 8.2 6.4-8.2 GM/DL Albumin 4.0 3.2-4.5 GM/DL My Orders Orders - PEPPER GRIGSBY MD Cbc With Automated Diff (03/29/20 22:08) Comprehensive Metabolic Panel (03/29/20 22:08) Troponin I Fs (03/29/20 22:08) Ekg Tracing (03/29/20 22:08) Probnp Fs (03/29/20 22:08) Protime With Inr (03/29/20 22:08) Partial Thromboplastin Time (03/29/20 22:08) Fibrin Degradation Products (03/29/20 22:08) Crp Fs (03/29/20 22:08) Ua Culture If Indicated (03/29/20 22:08) Chest Pa/Lat (2 View) (03/29/20 22:09) Ed Iv/Invasive Line Start (03/29/20 22:30) Ct Angio Chest W (03/29/20 23:08) Iohexol Injection (Omnipaque 350 Mg/Ml 1 (03/29/20 23:15) Received Contrast (Hold Metformin- Contr (03/29/20 23:15) Ns (Ivpb) (Sodium Chloride 0.9% Ivpb Bag (03/29/20 23:15) Medications Given in ED Current Medications Medications Dose Ordered Sig/Wilner Route Start Time Stop Time Status Last Admin Dose Admin Iohexol 100 ml ONCE ONCE IV 03/29/20 23:15 03/29/20 23:16 DC 03/29/20 23:23 100 ML Sodium Chloride 100 ml ONCE ONCE IV 03/29/20 23:15 03/29/20 23:16 DC 03/29/20 23:23 100 ML Vital Signs/I&O 03/29/20 22:00 Temp 36.9 Pulse 114 Resp 16 B/P (MAP) 142/88 (106) O2 Delivery Room Air Capillary Refill : Less Than 3 Seconds Blood Pressure Mean: 106 Progress Note : Time: 22:24 Progress Note 40-year-old female who presents with dyspnea with minimal exertion over the last 2 weeks, now progressed to mild dyspnea even at rest over the past few days. Mildly tachycardic and borderline hypoxic by vital signs here in the emergency department. We will check labs and EKG and chest x-ray and will then reevaluate. 0018: Patient is resting comfortably and vital signs remain stable. Oxygen saturation is 94% on room air at rest and the patient continues to sit on the side of the bed straight upright she states she cannot breathe well when she lays flat in bed. Large workup including lab work and imaging is unremarkable for any clear evidence of acute process. Patient does not have evidence of heart failure by labs or imaging and the rest of her cardiorespiratory workup is unrevealing. D-dimer was minimally elevated and so a CT angiogram of the chest was completed however this was essentially nondiagnostic for PE secondary to suboptimal contrast timing, movement artifact and the patient's weight. A V/Q scan is recommended by the radiologist. Verónica is afebrile and has not had any respiratory congestion, sore throat, body aches, malaise or cough pointing towards COVID-19 or other infectious etiology for her symptoms. Nevertheless, in the absence of another clear explanation for her profound acute exertional dysp gaviota, I would recommend that she be treated as COVID PUI and tested once admitted. We will proceed with admission to [facility] for observation on telemetry, echocardiogram in the morning, attention from cardiology and further care. Patient is in agreement. Dr. Andrade graciously accepts the patient for admission. ECG EKG : Comment Sinus tachycardia, rate 114, no acute ST elevation or depression, MI 144, QRS 88, QTC 440, nonischemic tracing, baseline wander limits interpretation, EP interpretation. Diagnostic Imaging Diagonstic Imaging: Xray Comments CXR: no acute process, EP interp CTA chest: Impression: Suboptimal study and cannot exclude central or peripheral pulmonary embolism. Recommend other imaging modalities including VQ scan for further assessment. Departure Impression Primary Impression: Dyspnea Qualified Codes: R06.09 - Other forms of dyspnea Additional Impression: Elevated d-dimer Disposition: ADMITTED INPATIENT Condition: Stable Departure-Patient Inst. Referrals: [facility] (PCP/Family) Primary Care Physician PEPPER GRIGSBY MD March 29, 2020 22:21
--- NOTE | 2020-03-29 22:37 | NUR ---
ATTEMPTED TO GET A UA BUT THE PT DROPPED THE CONTAINER IN THE TOILET. WILL TRY AGAIN LATER.
[2020-03-29 22:43] LABS: WHITE BLOOD COUNT 8.9 10^3/uL (4.3-11.0)
[2020-03-29 22:44] LABS: BASOPHILS % (AUTO) 0 % (0-10); EOSINOPHILS # (AUTO) 0.2 10^3/uL (0.0-0.3); EOSINOPHILS % (AUTO) 2 % (0-10); HEMATOCRIT 39 % (35-52); HEMOGLOBIN 11.9 G/DL (11.5-16.0); LYMPHOCYTES # (AUTO) 2.1 X 10^3 (1.0-4.0); LYMPHOCYTES % (AUTO) 23 % (12-44); MEAN CORPUSCULAR HEMOGLOBIN 26 PG (25-34); MEAN CORPUSCULAR HGB CONC 31 G/DL (32-36); MEAN CORPUSCULAR VOLUME 85 FL (80-99); MEAN PLATELET VOLUME 8.9 FL (7.4-10.4); MONOCYTES # (AUTO) 0.5 X 10^3 (0.0-1.0); MONOCYTES % (AUTO) 6 % (0-12); NEUTROPHILS % (AUTO) 68 % (42-75); PLATELET COUNT 469 10^3/uL (130-400); RED CELL DISTRIBUTION WIDTH 16.4 % (10.0-14.5)
[2020-03-29 23:03] LABS: FIBRIN DEGRADATION PRODUCTS 0.68 UG/ML (0.00-0.49); INR 0.9 (0.8-1.4); PROTHROMBIN TIME PATIENT 12.9 SEC (12.2-14.7)
[2020-03-29 23:09] LABS: ALANINE AMINOTRANSFERASE 13 U/L (0-55); ALKALINE PHOSPHATASE 107 U/L (40-136); BILIRUBIN,TOTAL 0.2 MG/DL (0.1-1.0); BUN/CREATININE RATIO 26; CALCIUM 9.6 MG/DL (8.5-10.1); CARBON DIOXIDE 26 MMOL/L (21-32); CHLORIDE 102 MMOL/L (98-107); GFR ESTIMATED > 60; GLUCOSE 145 MG/DL (70-105); POTASSIUM 4.2 MMOL/L (3.6-5.0); SODIUM 141 MMOL/L (135-145)
[2020-03-29 23:10] LABS: TOTAL PROTEIN 8.2 GM/DL (6.4-8.2)
[2020-03-29] MEDS ORDERED: IOHEXOL 350 MG/ML 100 ML (OMNIPAQUE 350) VIAL IV ONE (23:15)
[2020-03-29] MEDS ORDERED: HOLD METFORMIN - RECEIVED CONTRAST 20 ML VIAL IV SCH (23:15)
[2020-03-29] MEDS ORDERED: NS 100 ML (IVPB) BAG IV ONE (23:15)
[2020-03-30] VITALS (14 sets, daily range): BP systolic 93–152; BP diastolic 42–106
[2020-03-30] MEDS ORDERED: ENOXAPARIN 60 MG/0.6 ML (LOVENOX) SYR SC ONE (00:45)
--- OUTSIDE RECORDS SUMMARY | 2020-03-30 00:55 | XMS REPORT | Continuity of Care Document ---
Author Organization Unknown Address Unknown Phone Unavailable Allergies Active Description Code Type Severity Reaction Onset Reported/Identified Relationship to Patient Clinical Status Yes Sulfa (Sulfonamide Antibiotics) [id number] Drug Allergy Unknown N/A 020 Medications [...] 01/25/2020 MADI BELTRÁN DO Ot Z79.899 OTHER [facility] (CURRENT) DRUG THERAPY 01/25/2020 MADI BELTRÁN DO [...] 01/25/2020 MADI BELTRÁN DO Ot Z79.899 OTHER [facility] (CURRENT) DRUG THERAPY 01/25/2020 [facility], MADI Weinstein Ot Z88. 2 ALLERGY STATUS TO SULFONAMIDES STATUS [facility] Z90.710 ACQUIRED ABSENCE OF BOTH CERVIX AND UTER [facility] A04. 72 ENTEROCOLITIS D/T CLOSTRIDIUM DIFFICILE, 02/10[facility] F17.210 NICOTINE DEPENDENCE, CIGARETTES, UNCOMPL 02/10/2020 [facility], MADI D Ot F32. 9 MAJOR DEPRESSIVE DISORDER, SINGLE EPISOD 02/10/2020 [facility], MADI Weinstein Ot F41. 9 ANXIETY DISORDER, UNSPECIFIED 02/10[facility] K43. 2 INCISIONAL HERNIA WITHOUT OBSTRUCTION OR 02/10/[facility] K43. 9 VENTRAL HERNIA WITHOUT OBSTRUCTION OR GA [facility] Z79.899 [facility] (CURRENT) DRUG THERAPY [facility] Z88. 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 LAO 109 mL/min/1.73m2 > OR = 60 eGFR [...] Status Pt. Type Provider Facility Loc./Unit Complaint [id number] 11/05/2019 08:00:00 11/05/2019 23:59: 59 CLS Outpatient [facility] [place] [id number] 09/04/2019 16:30:00 Document Registration [id number] 02/19/2019 08:00:00 Document Registration [id number] 03/01/2020 12:42:00 23:59:59 CLS Outpatient LEANDER HENRIQUEZ KIESELGUHR REGENERATOR OPERATOR [facility] RAD FS INJURY OF RIGHT SHOULD ER [id number] 01/23/2020 06:45:00 11:27:00 DIS Inpatient MADI BELTRÁN DO [facility] 4TH NAUSEA/VOMITTING
[2020-03-30] MEDS ORDERED: diphenhydrAMINE 25 MG TAB (BENADRYL) PO PRN (02:00)
[2020-03-30] MEDS ORDERED: guaiFENesin/DM (ROBITUSSIN DM) 10 ML UDC PO PRN (02:00)
[2020-03-30] MEDS ORDERED: ACETAMINOPHEN 325 MG TABLET PO PRN ×2 (02:00)
[2020-03-30] MEDS ORDERED: polyethylene glycoL POWDER 17 GM (MIRALAX) PACK PO PRN (02:00)
[2020-03-30] MEDS ORDERED: fentaNYL INJECTION 100 MCG/2 ML AMP IVP PRN (02:00)
[2020-03-30] MEDS ORDERED: ONDANSETRON 4 MG/2 ML (SDV) Z0FRAN IVP PRN (02:00)
[2020-03-30] MEDS ORDERED: IBUPROFEN TABLET 200 MG TAB PO PRN (02:00)
[2020-03-30] MEDS ORDERED: ONDANSETRON 4 MG (ZOFRAN) ORAL DISSOLVE TAB PO PRN ×2 (02:00→11:30)
[2020-03-30] MEDS ORDERED: ALPRAZolam 0.25 MG (XANAX) TAB PO PRN (02:00)
[2020-03-30] MEDS ORDERED: ENOXAPARIN 100 MG/1 ML (LOVENOX) SYR SC SCH (02:15)
[2020-03-30 02:23] LABS: BASOPHILS % (AUTO) 0 % (0-10); EOSINOPHILS # (AUTO) 0.2 10^3/uL (0.0-0.3); EOSINOPHILS % (AUTO) 3 % (0-10); HEMATOCRIT 35 % (35-52); LYMPHOCYTES # (AUTO) 1.9 X 10^3 (1.0-4.0); LYMPHOCYTES % (AUTO) 28 % (12-44); MEAN CORPUSCULAR HEMOGLOBIN 26 PG (25-34); MEAN CORPUSCULAR HGB CONC 31 G/DL (32-36); MEAN CORPUSCULAR VOLUME 84 FL (80-99); MEAN PLATELET VOLUME 8.9 FL (7.4-10.4); MONOCYTES # (AUTO) 0.3 X 10^3 (0.0-1.0); MONOCYTES % (AUTO) 5 % (0-12); NEUTROPHILS # (AUTO) 4.5 X 10^3 (1.8-7.8); NEUTROPHILS % (AUTO) 65 % (42-75); PLATELET COUNT 409 10^3/uL (130-400); RED CELL DISTRIBUTION WIDTH 16.6 % (10.0-14.5); WHITE BLOOD COUNT 6.9 10^3/uL (4.3-11.0)
[2020-03-30 02:36] LABS: ALBUMIN 3.5 GM/DL (3.2-4.5); CHLORIDE 102 MMOL/L (98-107); POTASSIUM 3.8 MMOL/L (3.6-5.0); SODIUM 136 MMOL/L (135-145)
[2020-03-30 02:37] LABS: CALCIUM 8.9 MG/DL (8.5-10.1)
[2020-03-30 02:38] LABS: GLUCOSE 113 MG/DL (70-105); TOTAL PROTEIN 7.6 GM/DL (6.4-8.2)
[2020-03-30 02:39] LABS: CARBON DIOXIDE 24 MMOL/L (21-32)
[2020-03-30 02:40] LABS: BILIRUBIN,TOTAL 0.2 MG/DL (0.1-1.0)
[2020-03-30 02:42] LABS: ALKALINE PHOSPHATASE 89 U/L (40-136); GFR ESTIMATED > 60
[2020-03-30 02:43] LABS: BUN/CREATININE RATIO 24
[2020-03-30 02:45] LABS: ALANINE AMINOTRANSFERASE 15 U/L (0-55)
[2020-03-30 03:53] LABS: PHOSPHORUS 3.8 MG/DL (2.3-4.7)
[2020-03-30 03:55] LABS: MAGNESIUM 2.1 MG/DL (1.6-2.4)
[2020-03-30 04:06] LABS: FREE T4 (FREE THYROXINE) 0.88 NG/DL (0.70-1.48)
--- NOTE | 2020-03-30 05:34 | Diagnostic Imaging Report ---
INDICATION: Shortness of air COMPARISON: None FINDINGS: Frontal and lateral views of the chest demonstrate normal heart size and pulmonary vascularity. The lungs are clear. There are no signs of infiltrate, pleural effusions or pneumothoraces. The visualized osseous structures show no acute abnormalities. IMPRESSION: 1. No acute process. No signs of infiltrates, effusions or pneumothoraces. Dictated by: Dictated on workstation # [id number]
--- NOTE | 2020-03-30 06:07 | Pulmonary Consultation ---
History of Present Illness History of Present Illness Date Seen by Provider: March 30, 2020 Time Seen by Provider: 06:05 Date of Admission Allergies and Home Medications Allergies Coded Allergies: Sulfa (Sulfonamide Antibiotics) (Verified Allergy, Unknown, 01/23/20) Home Medications Alprazolam 1 Mg Tablet, 1 MG PO TID PRN for ANXIETY, (Reported) Aripiprazole 10 Mg Tablet, 10 MG PO DAILY, (Reported) Duloxetine HCl 60 Mg Capsule.dr, 60 MG PO DAILY, (Reported) Levothyroxine Sodium 137 Mcg Tablet, 137 MCG PO DAILY, (Reported) Ondansetron 4 Mg Tab.rapdis, 4 MG PO Q6H PRN for NAUSEA/VOMITING-1ST LINE Prescribed by: DANIEL HAMMER on 01/25/20 1235 [Relabel For Home Use] 1 EA EA, 125 MG MC Q6H Prescribed by: MADI BELTRÁN on 01/25/20 1134 Past Uwkmxxj-Fcjnis-Cnsrle Hx Past Med/Social Hx: Reviewed Nursing Past Med/Soc Hx Patient Social History Type Used: Cigarettes 2nd Hand Smoke Exposure: Yes Recent Foreign Travel: No Contact w/Someone Who Travel: No Recent Infectious Disease Expo: No Recent Hopitalizations: No Physical Abuse: No Sexual Abuse: No Mistreated: No Fear: No Immunizations Up To Date Date of Influenza Vaccine: Nov 24, 2019 Seasonal Allergies Seasonal Allergies: No Past Medical History Surgeries: Yes Section, Gallbladder Respiratory: No Cardiac: No Neurological: No Genitourinary: No Gastrointestinal: No Musculoskeletal: No Endocrine: No HEENT: No Cancer: No Psychosocial: Yes Anxiety, Depression Integumentary: No Blood Disorders: No Family Medical History Reviewed Nursing Family Hx No Pertinent Family Hx Review of Systems Time Seen by Provider: 06:07 Sepsis Event Evaluation Height, Weight, BMI Height: '" Weight: lbs. oz. kg; 59.48 BMI Method: Exam Exam Vital Signs Date Time Temp Pulse Resp B/P (MAP) Pulse Ox O2 Delivery O2 Flow Rate FiO2 03/30/20 04:00 105 14 152/104 (120) 92 Room Air 03/30/20 03:17 96 Room Air 03/30/20 03:00 100 35 131/106 (114) 92 Room Air 03/30/20 02:29 96 Room Air 03/30/20 02:15 105 20 124/96 (105) 92 Room Air 03/30/20 02:00 106 15 122/86 (98) 95 Room Air 03/30/20 01:52 36.6 105 18 115/90 95 Room Air 03/30/20 01:50 36.3 101 18 115/90 (98) 96 Room Air 03/30/20 01:49 110 03/30/20 00:23 37.0 109 20 138/97 95 Room Air 03/29/20 22:00 36.9 114 16 142/88 (106) Room Air Height & Weight Height: '" Weight: lbs. oz. kg; 59.48 BMI Method: Capillary Refill: Less Than 3 Seconds Results Lab Laboratory Tests 03/29/20 22:26 03/30/20 02:16 Assessment/Plan Assessment/Plan Acute respiratory distress -Start solumedrol -Check BNP -Start Combivent and advair Hx of tobacco use -education R/o COPD -Out pt testing morbid obesity -Education JULIAN HAZEL DO March 30, 2020 06:07
--- NOTE | 2020-03-30 06:29 | Diagnostic Imaging Report ---
PROCEDURE: CT angiography of the chest with contrast. TECHNIQUE: Multiple contiguous axial images were obtained through the chest after uneventful bolus administration of intravenous contrast. 3D reconstructed CTA MIP acquisitions were also performed. Auto Exposure Controls were utilized during the CT exam to meet ALARA standards for radiation dose reduction. INDICATION: Shortness of air. COMPARISON: None FINDINGS: There is no acute pulmonary embolus to the lobar division of the pulmonary arteries. Evaluation beyond this is suboptimal secondary to poor opacification by the contrast bolus and motion artifact. Thoracic aorta is normal in course and caliber. There is no evidence of dissection, aneurysm, nor focal significant stenosis. Heart size is within normal limits. There is no large pericardial effusion. No pathologically enlarged or morphologically abnormal adenopathy is seen within the mediastinum, marcus, nor axilla. Lung rey are also mildly obscured secondary to motion artifact. Pulmonary nodule or micronodule may be inconspicuous. There is no focal consolidation, large effusion, nor pneumothorax. Osseous structures show age-related degenerative changes. Included portions of the upper abdomen show no additional acute abnormalities. IMPRESSION: 1. No acute pulmonary embolus to the lobar division of the pulmonary arteries. 2. No other acute cardiopulmonary process. Dictated by: Dictated on workstation # [id number]
--- NOTE | 2020-03-30 06:47 | History & Physical-Hospitalist ---
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 All workup was negative . CT angiogram was inconclusive of PE but VQ scan will be followed up today. She was swabbed for Covid 19 but no fever, just SOB and no outside travel. I doubt that that will come back positive, regardless PPE was used to see the pt. Pt still a little bit SOB and tachycardia of 106, home meds were restarted and include a lot of psych meds. Source: patient Exam Limitations: no limitations Date Seen 03/30/20 Time Seen by a Provider: 09:45 Attending Physician Aubree Andrade DO [facility] Referring Physician Date of Admission March 30, 2020 at 00:20 Home Medications & Allergies Home Medications Reviewed patient Home Medication Reconciliation performed by pharmacy medication reconciliations neurodiagnostic technician and/or nursing. Patients Allergies have been reviewed. Allergies Allergies Coded Allergies Sulfa (Sulfonamide Antibiotics) (Verified Allergy, Unknown, 01/23/20) Past Ubamsys-Rqftsw-Ijpawm Hx Past Med/Social Hx: Reviewed Nursing Past Med/Soc Hx, Reviewed and Corrections made Patient Social History Marrital Status: Employed/Student: employed (RN) Alcohol Use: Denies Use Smoking Status: Light Tobacco Smoker Type Used: Cigarettes 2nd Hand Smoke Exposure: Yes Recent Foreign Travel: No Contact w/other who traveled: No Recent Hopitalizations: No Recent Infectious Disease Expo: No Immunizations Up To Date Date of Influenza Vaccine: Nov 24, 2019 Seasonal Allergies Seasonal Allergies: No Past Medical History Surgeries: Section, Gallbladder Psychosocial: Anxiety, Depression History of Blood Disorders: No Family History Reviewed Nursing Family Hx No Pertinent Family Hx Review of Systems Constitutional: see HPI Respiratory: dyspnea on exertion, short of breath Physical Exam Physical Exam Vital Signs Vital Signs - First Documented 03/29/20 03/30/20 03/30/20 22:00 00:23 04:51 Temp 36.9 Pulse 114 Resp 16 B/P (MAP) 142/88 (106) Pulse Ox 95 O2 Delivery Room Air O2 Flow Rate 2.00 Capillary Refill : Less Than 3 Seconds Height, Weight, BMI Height: '" Weight: lbs. oz. kg; 59.48 BMI Method: General Appearance: Anxious, Mild Distress, Obese Eyes: Right Eye Normal Inspection, Right Eye PERRL HEENT: PERRL/EOMI, Normal ENT Inspection, Pharynx Normal, Moist Mucous Membranes Neck: Full Range of Motion, Normal Inspection, Non Tender Respiratory: Chest Non Tender, No Respiratory Distress, Accessory Muscle Use, Decreased Breath Sounds Cardiovascular: Regular Rate, Rhythm, No Edema, No Gallop, No JVD, No Murmur, Normal Peripheral Pulses Gastrointestinal: Normal Bowel Sounds, No Organomegaly, No Pulsatile Mass, Non Tender, Soft Back: Normal Inspection, No CVA Tenderness, No Vertebral Tenderness Extremity: Normal Capillary Refill, Normal Inspection, Normal Range of Motion, Non Tender, No Calf Tenderness, No Pedal Edema Neurologic/Psychiatric: Alert, Oriented x3, No Motor/Sensory Deficits, Normal Mood/Affect Skin: Normal Color, Warm/Dry Lymphatic: No Adenopathy Results Results/Procedures Labs Laboratory Tests 03/29/20 22:26 03/30/20 02:16 Patient resulted labs reviewed. Assessment/Plan Admission Diagnosis Assessment: Dyspnea Hypoxia Obesity Suspect ANGEL/OHS Emotional problems Neuropathy Plan: VQ scan since angiogram was inconclusive Lovenox until VQ scan reveals low probability of PE O2 Nebs Steroids ECHO Cardiology Pulmonology Admission Status: Observation Diagnosis/Problems Diagnosis/Problems (1) Dyspnea Status: Acute Qualifiers: Dyspnea type: other forms of dyspnea Qualified Codes: R06.09 - Other forms of dyspnea (2) Elevated d-dimer Status: Acute Clinical Quality Measures DVT/VTE Risk/Contraindication: Risk Factor Score Per Nursin RFS Level Per Nursing on Admit: 4+=Very High AUBREE ANDRADE DO March 30, 2020 06:47
[2020-03-30] MEDS ORDERED: ENOXAPARIN 100 MG/1 ML (LOVENOX) SYR ONE (07:50)
[2020-03-30] MEDS: LORATADINE (CLARITIN) 10 MG TAB PO SCH (08:21)
[2020-03-30] MEDS: DOCUSATE SODIUM 100 MG (COLACE) CAP PO SCH ×2 (08:21→21:03)
[2020-03-30] MEDS: ADVAIR HFA 115/21 MCG INHALER 8 GM IH SCH ×2 (09:03→18:48)
[2020-03-30] MEDS: ALBUTEROL/IPRATROP (COMBIVENT RESPIMAT) 4 GM INHALER IH SCH ×4 (09:03→22:13)
[2020-03-30] MEDS ORDERED: CYCL5TAB PO (10:55)
[2020-03-30] MEDS: methylPREDNISolone 40 MG/ML (Solu-MEDROL) VIAL IV SCH ×3 (10:55→22:47)
[2020-03-30] MEDS ORDERED: GABA300C PO ×2 (10:55)
[2020-03-30] MEDS ORDERED: TRAM50TA3 PO (10:55)
[2020-03-30] MEDS ORDERED: NAPR-915 PO (10:58)
[2020-03-30] MEDS ORDERED: ASPI-789 PO (10:58)
--- NOTE | 2020-03-30 10:58 | NUR ---
SPOKE WITH THE PT (I CALLED HER CELL PHONE) WENT THRU THE EXT MED HISTORY [facility] [place] [facility] REC THE FOLLOWING MEDICATIONS WERE NOT LISTED ON THE EXT MED HISTORY: 12-15-2019 LEVOTHYROXINE 137MCG #90/90DS 03-01-2020 NAPROXEN 500MG #180/90DS ALL OTHER MEDICATIONS ARE LISTED ON THE EXT MED HISTORY AND THE PT WAS ABLE TO TELL ME HOW/WHEN SHE TAKES EACH OTC MEDS: LYDRADITI CHRISTOPHERN
[2020-03-30] MEDS ORDERED: ENOXAPARIN 60 MG/0.6 ML (LOVENOX) SYR SC SCH (11:00)
[2020-03-30] MEDS ORDERED: ENOXAPARIN 300 MG/3 ML (LOVENOX) MULTI-DOSE VIAL SQ SCH (11:00)
[2020-03-30] MEDS ORDERED: ENOXAPARIN 100 MG/1 ML (LOVENOX) SYR SC NR (11:02)
--- NOTE | 2020-03-30 11:05 | NUR ---
CORRECTION ON ENOXAPARIN DOSING: CONTINUE WITH TREATMENT DOSE (160MG SQ BID) UNTIL V/Q SCAN COMPLETED. GIVE AN EXTRA 100MG THIS MORNING (ALREADY RECEIVED 60MG).
[2020-03-30] MEDS ORDERED: GABAPENTIN 300 MG (NEURONTIN) CAP PO PRN (11:30)
[2020-03-30] MEDS ORDERED: NON-FORMULARY MEDICATION 1 EA EA (Aspirin/Acetaminophen/Caffeine (Excedrin Migraine Caplet PO PRN (11:30)
[2020-03-30] MEDS ORDERED: CYCLOBENZAPRINE 10 MG (FLEXERIL) TAB PO PRN (11:30)
[2020-03-30] MEDS ORDERED: NAPROXEN 250 MG (NAPROSYN) TABLET PO PRN (11:30)
[2020-03-30 12:37] LABS: ABG BASE EXCESS 1.5 MMOL/L (-2.5-2.5); ABG OXYGEN SATURATION 88 % (94-100); ABG PCO2 39 MMHG (35-45); ABG PH 7.43 (7.37-7.43); ABG PO2 59 MMHG (79-93); ABG TCO2 26.7 MMOL/L (21.0-31.0)
[2020-03-30 12:39] LABS: ALLENS TEST YES-POS; INSPIRED O2 2; PATIENT TEMP 36.8; VENTILATOR NO
--- NOTE | 2020-03-30 13:29 | Consultation-Cardiology ---
HPI-Cardiology Cardiology Consultation Date of Consultation 03/30/20 Date of Admission Time Seen by Provider: 13:23 Indication: chest pain, dyspnea HPI Patient is a 40 year old female with history of hypothyroidism, anxiety, morbid obesity. Presented to the ER with complaints in increased dyspnea for the past 3 weeks. Reports occasional episode of left sided chest pain. c/p orthopnea for the past couple weeks with increased peripheral edema. Denies any dizziness/lightheadedness or syncope. 40 years old lady with history of morbid obesity, anxiety. Has been having increasing dyspnea for the past week, became significantly worse for the past 2 days. Came into the hospital and has been having worsening orthopnea. She was feeling some tightness in her chest. She was given Solu-Medrol and reported some improvement the tightness still unable to lay down and having some shortness of breath. Home Medications & Allergies Allergies: Coded Allergies: Sulfa (Sulfonamide Antibiotics) (Verified Allergy, Unknown, 01/23/20) Home Medication List Reviewed: Yes [id number] Hx Patient Social History Employed/Student: employed ([employer] via [employer]) Alcohol Use: Denies Use Recreational Drug Use: No Smoking Status: Never a Smoker Type Used: Cigarettes 2nd Hand Smoke Exposure: Yes Recent Foreign Travel: No Recent Infectious Disease Expo: No Recent Hopitalizations: No Immunizations Up To Date Date of Influenza Vaccine: Nov 24, 2019 Past Medical History hypothyroidism, fibromyalgia, obesity Family Medical History Significant Family History: No Pertinent Family Hx Family Medical Hx Noncontributory Review of Systems-General Review of Systems Constitutional: see HPI; No diaphoresis, No dizziness, No fever; malaise, weakness EENTM: see HPI, no symptoms reported; No blurred vision, No double vision, No vision loss Respiratory: see HPI; No cough; dyspnea on exertion, orthopnea, short of breath; No wheezing Cardiovascular: see HPI, chest pain, edema; No Hx of Intervention, No palpitations Genitourinary: No hematuria Musculoskeletal: No back pain, No joint pain Skin: No lesions Psychiatric/Neurological: Anxiety, Depressed All Other Systems Reviewed Negative Unless Noted: Yes (Negative excepted noted.) Reviewed Test Results Reviewed Test Results Lab Laboratory Tests 03/29/20 22:25: Glucometer 131H 03/29/20 22:26: White Blood Count 8.9, Red Blood Count 4.57, Hemoglobin 11.9, Hematocrit 39, Mean Corpuscular Volume 85, Mean Corpuscular Hemoglobin 26, Mean Corpuscular Hemoglobin Concent 31L, Red Cell Distribution Width 16.4H, Platelet Count 469H, Mean Platelet Volume 8.9, Neutrophils (%) (Auto) 68, Lymphocytes (%) (Auto) 23, Monocytes (%) (Auto) 6, Eosinophils (%) (Auto) 2, Basophils (%) (Auto) 0, Neutrophils # (Auto) 6.0, Lymphocytes # (Auto) 2.1, Monocytes # (Auto) 0.5, Eosinophils # (Auto) 0.2, Basophils # (Auto) 0.0, Prothrombin Time 12.9, INR Comment 0.9, Activated Partial Thromboplast Time 31, D-Dimer 0.68H, Sodium Level 141, Potassium Level 4.2, Chloride Level 102, Carbon Dioxide Level 26, Anion Gap 13, Blood Urea Nitrogen 18, Creatinine 0.70, Estimat Glomerular Filtration Rate > 60, BUN/Creatinine Ratio 26, Glucose Level 145H, Calcium Level 9.6, Corrected Calcium 9.6, Total Bilirubin 0.2, Aspartate Amino Transf (AST/SGOT) 17, Alanine Aminotransferase (ALT/SGPT) 13, Alkaline Phosphatase 107, Troponin I < 0.30, C- Reactive Protein 1.93H, Pro-B-Type Natriuretic Peptide < 5.0, Total Protein 8.2, Albumin 4.0 03/30/20 02:06: 03/30/20 02:16: White Blood Count 6.9, Red Blood Count 4.20L, Hemoglobin 11.0L, Hematocrit 35, Mean Corpuscular Volume 84, Mean Corpuscular Hemoglobin 26, Mean Corpuscular Hemoglobin Concent 31L, Red Cell Distribution Width 16.6H, Platelet Count 409H, Mean Platelet Volume 8.9, Neutrophils (%) (Auto) 65, Lymphocytes (%) (Auto) 28, Monocytes (%) (Auto) 5, Eosinophils (%) (Auto) 3, Basophils (%) (Auto) 0, Neutrophils # (Auto) 4.5, Lymphocytes # (Auto) 1.9, Monocytes # (Auto) 0.3, Eosinophils # (Auto) 0.2, Basophils # (Auto) 0.0, Sodium Level 136, Potassium Level 3.8, Chloride Level 102, Carbon Dioxide Level 24, Anion Gap 10, Blood Urea Nitrogen 17, Creatinine 0.70, Estimat Glomerular Filtration Rate > 60, BUN/Creatinine Ratio 24, Glucose Level 113H, Calcium Level 8.9, Corrected Calcium 9.3, Total Bilirubin 0.2, Aspartate Amino Transf (AST/SGOT) 15, Alanine Aminotransferase (ALT/SGPT) 15, Alkaline Phosphatase 89, Troponin I < 0.028, Total Protein 7.6, Albumin 3.5, Phosphorus Level 3.8, Magnesium Level 2.1, B- Type Natriuretic Peptide < 10.0, Thyroid Stimulating Hormone (TSH) 2.41, Free Thyroxine 0.88 03/30/20 10:55: Troponin I < 0.028 03/30/20 12:10: Blood Gas Puncture Site LT RADIAL, Blood Gas Patient Temperature 36.8, Arterial Blood pH 7.43, Arterial Blood Partial Pressure CO2 39, Arterial Blood Partial Pressure O2 59L, Arterial Blood HCO3 26, Arterial Blood Total CO2 26.7, Arterial Blood Oxygen Saturation 88L, Arterial Blood Base Excess 1.5, Joo Test YES-POS, Blood Gas Ventilator Setting NO, Blood Gas Inspired Oxygen 2 Physical Exam Physical Exam Vital Signs Vital Signs - First Documented 03/29/20 03/30/20 03/30/20 22:00 00:23 04:51 Temp 36.9 Pulse 114 Resp 16 B/P (MAP) 142/88 (106) Pulse Ox 95 O2 Delivery Room Air O2 Flow Rate 2.00 Capillary Refill : Less Than 3 Seconds Height, Weight, BMI Height: '" Weight: lbs. oz. kg; 59.48 BMI Method: General Appearance: No Apparent Distress, WD/WN Eyes: Bilateral Eye Normal Inspection, Bilateral Eye PERRL, Bilateral Eye EOMI HEENT: PERRL/EOMI, TMs Normal, Normal ENT Inspection, Pharynx Normal, Moist Mucous Membranes Neck: Full Range of Motion, Normal Inspection, Non Tender, Supple, Carotid Bruit Respiratory: Chest Non Tender, Normal Breath Sounds, No Accessory Muscle Use, No Respiratory Distress, Decreased Breath Sounds Cardiovascular: No Edema, No Gallop, No JVD, No Murmur, Normal Peripheral Pulses, Tachycardia Gastrointestinal: Normal Bowel Sounds, No Organomegaly, No Pulsatile Mass, Non Tender, Soft Back: Normal Inspection, No CVA Tenderness, No Vertebral Tenderness Extremity: Normal Capillary Refill, Normal Inspection, Normal Range of Motion, Non Tender, No Calf Tenderness, No Pedal Edema Neurologic/Psychiatric: Alert, Oriented x3, No Motor/Sensory Deficits, Normal Mood/Affect Skin: Normal Color, Warm/Dry Lymphatic: No Adenopathy A/P-Cardiology Admission Diagnosis Chest pain Dyspnea Tachycardia Morbid obesity Assessment/Plan Chest pain, nonspecific etiology, EKG reveals sinus tachycardia with no acute ST changes. Cardiac enzymes negative. Unlikely to be cardiac in nature, continue to monitor at this point Shortness of breath, worsening recently, full workup was negative including COVID testing is negative. Will evaluate 2-D echocardiogram. Sinus tachycardia, probably due to acute exacerbation of COPD. Continue to m onitor at this time Morbid obesity, discussed weight loss. Hypothyroidism Anxiety/depression Thank you for allowing us to participate in the management of Ms. Olivarez. This is Iveth Wolff PA-C, as a scribe for Dr. Briceno. Patient was seen and evaluated with Iveth, examination performed, management plan was discussed, agree with the current scribed note, I made few changes to the note using Italic font Patient was seen and evaluated, feeling better at this time after receiving Solu-Medrol. Denied any chest pain at this point. Still having dyspnea and orthopnea. BNP was normal. So far her workup has been normal. I believe this is COPD exacerbation, responsive to Solu-Medrol, discussed management plan and will evaluate 2-D echo Continue to monitor at this point we can use low-dose beta blockers or calcium channel blockers for her sinus tachycardia even though probably dates due to the hypoxemia Clinical Quality Measures DVT/VTE Risk/Contraindication: Risk Factor Score Per Nursin RFS Level Per Nursing on Admit: 4+=Very High IVETH MCNEILL March 30, 2020 13:29 HERLINDA BRICENO MD March 30, 2020 16:14
--- NOTE | 2020-03-30 15:39 | Diagnostic Imaging Report ---
INDICATION: Evaluate for pulmonary embolism. EXAMINATION: Patient was administered 5.5 mCi technetium 99m MAA intravenously and imaging over the chest was performed in multiple obliquities. FINDINGS: There is homogeneous uptake of activity throughout both lungs. No pleural-based perfusion defects are seen. IMPRESSION: No perfusion defect is detected. Dictated by: Dictated on workstation # [id number]
[2020-03-30] MEDS: ALPRAZolam 1 MG (XANAX) TAB PO PRN (17:01)
[2020-03-30] MEDS: MONTELUKAST 10 MG (SINGULAIR) TAB PO SCH (21:03)
[2020-03-30] MEDS: MELATONIN 3 MG TABLET PO SCH (21:03)
[2020-03-30] MEDS: ENOXAPARIN 300 MG/3 ML (LOVENOX) MULTI-DOSE VIAL SQ SCH (22:47)
[2020-03-31] VITALS (7 sets, daily range): BP systolic 130–145; BP diastolic 75–93
[2020-03-31 03:28] LABS: BASOPHILS % (AUTO) 0 % (0-10); EOSINOPHILS % (AUTO) 0 % (0-10); HEMATOCRIT 37 % (35-52); HEMOGLOBIN 11.3 G/DL (11.5-16.0); LYMPHOCYTES # (AUTO) 0.9 X 10^3 (1.0-4.0); LYMPHOCYTES % (AUTO) 8 % (12-44); MEAN CORPUSCULAR HEMOGLOBIN 26 PG (25-34); MEAN CORPUSCULAR HGB CONC 30 G/DL (32-36); MEAN CORPUSCULAR VOLUME 84 FL (80-99); MEAN PLATELET VOLUME 9.5 FL (7.4-10.4); MONOCYTES # (AUTO) 0.1 X 10^3 (0.0-1.0); MONOCYTES % (AUTO) 1 % (0-12); NEUTROPHILS # (AUTO) 10.1 X 10^3 (1.8-7.8); NEUTROPHILS % (AUTO) 91 % (42-75); PLATELET COUNT 417 10^3/uL (130-400); RED CELL DISTRIBUTION WIDTH 16.8 % (10.0-14.5); WHITE BLOOD COUNT 11.1 10^3/uL (4.3-11.0)
[2020-03-31 03:43] LABS: ALANINE AMINOTRANSFERASE 15 U/L (0-55); ALBUMIN 3.8 GM/DL (3.2-4.5); ALKALINE PHOSPHATASE 95 U/L (40-136); BILIRUBIN,TOTAL 0.2 MG/DL (0.1-1.0); BUN/CREATININE RATIO 22; CALCIUM 9.7 MG/DL (8.5-10.1); CARBON DIOXIDE 20 MMOL/L (21-32); CHLORIDE 106 MMOL/L (98-107); CREATININE SERUM 0.79 MG/DL (0.60-1.30); GFR ESTIMATED > 60; GLUCOSE 235 MG/DL (70-105); PHOSPHORUS 2.4 MG/DL (2.3-4.7); POTASSIUM 4.2 MMOL/L (3.6-5.0); SODIUM 140 MMOL/L (135-145); TOTAL PROTEIN 8.5 GM/DL (6.4-8.2)
[2020-03-31 03:52] LABS: BAND NEUTROPHILS 2 %; HYPERSEGMENTED NEUT SLIGHT; LYMPHOCYTES % (MANUAL) 8 %; MONOCYTES % (MANUAL) 3 %; NEUTROPHILS % (MANUAL) 87 %
[2020-03-31 03:53] LABS: ANISOCYTOSIS SLIGHT
--- NOTE | 2020-03-31 05:17 | Pulmonary Progress Note ---
Subjective Time Seen by a Provider: 05:13 Subjective/Events-last exam No complications noted. Pt is doing better. Sepsis Event Evaluation Height, Weight, BMI Height: '" Weight: lbs. oz. kg; 59.48 BMI Method: Exam Exam Vital Signs Date Time Temp Pulse Resp B/P (MAP) Pulse Ox O2 Delivery O2 Flow Rate FiO2 03/31/20 03:01 96 Room Air 03/31/20 03:00 36.1 114 18 136/91 (106) 93 Room Air 03/31/20 01:00 117 03/30/20 23:15 96 Room Air 03/30/20 23:12 36.4 117 16 136/81 (99) 92 Room Air 03/30/20 22:13 93 Nasal Cannula 2.50 03/30/20 20:45 Room Air 03/30/20 20:00 35.8 123 18 138/92 (107) 93 Room Air 03/30/20 20:00 96 Room Air 03/30/20 19:43 122 34 138/92 (107) 93 Room Air 03/30/20 19:00 116 03/30/20 18:48 93 Nasal Cannula 2.50 03/30/20 18:48 92 Nasal Cannula 2.50 03/30/20 16:15 129 23 129/97 (108) 92 Room Air 03/30/20 16:00 35.5 03/30/20 16:00 96 Room Air 03/30/20 14:24 92 Room Air 03/30/20 14:19 Room Air 03/30/20 12:52 104 03/30/20 12:00 105 10 Nasal Cannula 03/30/20 12:00 95 Room Air 03/30/20 10:19 Nasal Cannula 2.00 03/30/20 09:30 36.4 03/30/20 09:11 96 Nasal Cannula 03/30/20 09:00 Nasal Cannula 2.00 03/30/20 08:00 96 Nasal Cannula 2.00 03/30/20 08:00 99 135/94 (108) 94 Nasal Cannula 03/30/20 06:52 104 03/30/20 06:00 130 93/42 (59) 94 Nasal Cannula 2.00 I & O 03/31/20 07:00 Intake Total 1750 ml Output Total 3350 ml Balance -1600 ml Height & Weight Height: '" Weight: lbs. oz. kg; 59.48 BMI Method: General Appearance: No Apparent Distress, Anxious, Obese HEENT: PERRL/EOMI, Normal ENT Inspection, Pharynx Normal, Moist Mucous Membran es Neck: Full Range of Motion, Normal Inspection, Non Tender Respiratory: Chest Non Tender, No Respiratory Distress, Accessory Muscle Use, Decreased Breath Sounds Cardiovascular: Regular Rate, Rhythm, No Edema, No Gallop, No JVD, No Murmur, Normal Peripheral Pulses Capillary Refill: Less Than 3 Seconds Extremity: Normal Capillary Refill, Normal Inspection, Normal Range of Motion, Non Tender, No Calf Tenderness, No Pedal Edema Neurologic/Psychiatric: Alert, Oriented x3, No Motor/Sensory Deficits, Normal Mood/Affect Skin: Normal Color, Warm/Dry Lymphatic: No Adenopathy Results Lab Laboratory Tests 03/29/20 22:26 03/30/20 02:16 03/31/20 02:40 Assessment/Plan Assessment/Plan Acute respiratory distress-- improving - solumedrol -Combivent and advair Hx of tobacco use -education R/o COPD -Out pt testing morbid obesity -Education Pt is doing better will transfer to 4th floor. JULIAN HAZEL DO March 31, 2020 05:17
[2020-03-31] MEDS: LEVOTHYROXINE 112 MCG (LEVOTHROID) TAB PO SCH (05:26)
[2020-03-31] MEDS: LEVOTHYROXINE 25 MCG (LEVOTHROID) TAB PO SCH (05:26)
[2020-03-31] MEDS: methylPREDNISolone 40 MG/ML (Solu-MEDROL) VIAL IV SCH ×4 (05:26→23:10)
--- NOTE | 2020-03-31 06:12 | Progress Note - Hospitalist ---
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 All workup was negative . CT angiogram was inconclusive of PE but VQ scan will be followed up today. She was swabbed for Covid 19 but no fever, just SOB and no outside travel. I doubt that that will come back positive, regardless PPE was used to see the pt. Pt still a little bit SOB and tachycardia of 106, home meds were restarted and include a lot of psych meds. Subjective/Events-last exam Pt improved SOB Counseled regarding smoking cessation and she realizes that now Will initiated a home O2 evaluation and an overnight Oxygen test Solumedrol is recalling helping her Advair and Singulair and Claritin are maintained Home meds are maintained Overall she has no new significant issues but she becomes tearful and I reassure her Review of Systems General: Fatigue Objective Exam Vital Signs Vital Signs Date Time Temp Pulse Resp B/P (MAP) Pulse Ox O2 Delivery O2 Flow Rate FiO2 03/31/20 19:42 36.8 124 24 133/76 (95) 93 Room Air 03/30/20 22:13 2.50 Capillary Refill : Less Than 3 Seconds General Appearance: No Apparent Distress, WD/WN Respiratory: Lungs Clear, Normal Breath Sounds, Decreased Breath Sounds Neurologic/Psychiatric: Alert, Oriented x3, No Motor/Sensory Deficits, Normal Mood/Affect Results/Procedures Lab Laboratory Tests 03/31/20 02:40 Patient resulted labs reviewed. Assessment/Plan Assessment and Plan Assess & Plan/Chief Complaint Assessment: Dyspnea Hypoxia Obesity Suspect ANGEL/OHS Emotional problems Neuropathy Plan: VQ scan negative Lovenox DVT PPx O2 Nebs Steroids ECHO Cardiology Pulmonology Home O2 evaluation Night time O2 evaluation Diagnosis/Problems Diagnosis/Problems (1) Dyspnea Status: Acute Qualifiers: Dyspnea type: other forms of dyspnea Qualified Codes: R06.09 - Other forms of dyspnea (2) Elevated d-dimer Status: Acute Clinical Quality Measures DVT/VTE Risk/Contraindication: Risk Factor Score Per Nursin RFS Level Per Nursing on Admit: 4+=Very High TRINH ARNTD DO March 31, 2020 06:12
[2020-03-31] MEDS: ADVAIR HFA 115/21 MCG INHALER 8 GM IH SCH ×2 (06:35→19:07)
[2020-03-31] MEDS: ALBUTEROL/IPRATROP (COMBIVENT RESPIMAT) 4 GM INHALER IH SCH ×4 (06:35→19:07)
--- NOTE | 2020-03-31 07:22 | Diagnostic Imaging Report ---
CHEST 1 VIEW, AP/PA ONLY Indication: Dyspnea Comparison: Two-view chest of 03/29/2020 Findings: Limited examination due to portable technique and patient's large body habitus. Allowing for this, no gross pulmonary consolidations have developed. No pleural effusion or pneumothorax. Stable cardiomediastinal silhouette. Impression: 1. No gross abnormality by limited portable radiography. Dictated by: Dictated on workstation # [id number]
[2020-03-31] MEDS: ALPRAZolam 1 MG (XANAX) TAB PO PRN ×2 (07:59→21:05)
[2020-03-31] MEDS: DULoxetine 30 MG (CYMBALTA) CAP PO SCH (07:59)
[2020-03-31] MEDS: LORATADINE (CLARITIN) 10 MG TAB PO SCH (08:00)
[2020-03-31] MEDS: DOCUSATE SODIUM 100 MG (COLACE) CAP PO SCH ×2 (08:00→19:54)
[2020-03-31] MEDS: GABAPENTIN 300 MG (NEURONTIN) CAP PO SCH (08:00)
--- NOTE | 2020-03-31 08:35 | Cardiology Progress Note ---
Subjective Date Seen by Provider: March 31, 2020 Time Seen by Provider: 08:33 Subjective/Events-last exam Patient was seen at bedside laying down comfortably, denied any chest pain, breathing better. Review of Systems General: No Chills, No Night Sweats; Fatigue; No Malaise, No Appetite, No Other HEENT: No Head Aches, No Visual Changes, No Eye Pain, No Ear Pain, No Dy sphasia, No Sinus Congestion, No Post Nasal Drip, No Sore Throat, No Other Pulmonary: Dyspnea; No Cough, No Pleuritic Chest Pain, No Other Cardiovascular: No: Chest Pain, Palpitations, Orthopnea, Paroxysmal Noc. Dyspnea, Edema, Lt Headedness, Other Objective-Cardiology Exam Last Set of Vital Signs Vital Signs 03/30/20 03/31/20 22:13 07:47 Temp 35.6 Pulse 113 Resp 19 B/P (MAP) 130/75 (93) Pulse Ox 93 O2 Delivery Room Air O2 Flow Rate 2.50 Capillary Refill : Less Than 3 Seconds I&O Intake and Output 03/31/20 00:00 Intake Total 1950 ml Output Total 3350 ml Balance -1400 ml Intake Oral 1950 ml Output Urine Total 3350 ml # Voids 2 Daily Weight Change No No General: Alert, Oriented X3, Cooperative HEENT: Atraumatic, PERRLA Neck: Supple, No JVD, No Thyromegaly Lungs: Clear to Auscultation, Normal Air Movement Heart: Regular Rate, Normal S1, Normal S2, No Murmurs Abdomen: Normal Bowel Sounds, Soft, No Tenderness, No Hepatosplenomegaly, No Masses Extremities: No Clubbing, No Cyanosis, No Edema, Normal Pulses, No Ten derness/Swelling Skin: No Rashes, No Breakdown, No Significant Lesion Neuro: Normal Gait, Normal Speech, Strength at 5/5 X4 Ext, Normal Tone, Sensation Intact Psych/Mental Status: Mental Status NL, Mood NL Results Lab Laboratory Tests 03/31/20 02:40 A/P-Cardiology Admission Diagnosis Chest pain Dyspnea Tachycardia Morbid obesity Assessment/Plan Chest pain, nonspecific etiology, EKG reveals sinus tachycardia with no acute ST changes. Cardiac enzymes negative. Unlikely to be cardiac in nature, continue to monitor at this point Shortness of breath, worsening recently, full workup was negative including COVID testing is negative. Sinus tachycardia, probably due to acute exacerbation of COPD. Continue to monitor at this time Morbid obesity, discussed weight loss. Hypothyroidism, managed by primary care physician Anxiety/depression, managed by primary care physician Okay for discharge from cardiology standpoint Clinical Quality Measures DVT/VTE Risk/Contraindication: Risk Factor Score Per Nursin RFS Level Per Nursing on Admit: 4+=Very High HERLINDA WANG MD March 31, 2020 08:35
--- NOTE | 2020-03-31 09:18 | NUR ---
REPORT CALLED TO [facility] FLOOR. PT TO BE TRANSPORTED VIA WC TO ROOM 425 MOMENTARILY
--- NOTE | 2020-03-31 09:45 | NUR ---
PT RECEIVED IN [facility] AND REPORT GIVEN BY [facility] ICU. I HAVE REVEIWED HIS ASSESSMENT AND AGREE WITH IT.
[2020-03-31] MEDS: ENOXAPARIN 300 MG/3 ML (LOVENOX) MULTI-DOSE VIAL SQ SCH ×2 (11:48→23:10)
[2020-03-31] MEDS: MONTELUKAST 10 MG (SINGULAIR) TAB PO SCH (21:05)
[2020-03-31] MEDS: MELATONIN 3 MG TABLET PO SCH (21:05)
[2020-04-01] VITALS: BP 146/80
[2020-04-01 04:00] VITALS: BP 129/78
[2020-04-01] MEDS: LEVOTHYROXINE 112 MCG (LEVOTHROID) TAB PO SCH (06:01)
[2020-04-01] MEDS: methylPREDNISolone 40 MG/ML (Solu-MEDROL) VIAL IV SCH ×2 (06:01→12:24)
[2020-04-01] MEDS: LEVOTHYROXINE 25 MCG (LEVOTHROID) TAB PO SCH (06:01)
[2020-04-01 07:02] LABS: BASOPHILS % (AUTO) 0 % (0-10); EOSINOPHILS % (AUTO) 0 % (0-10); HEMATOCRIT 35 % (35-52); HEMOGLOBIN 10.9 G/DL (11.5-16.0); LYMPHOCYTES # (AUTO) 1.3 X 10^3 (1.0-4.0); LYMPHOCYTES % (AUTO) 9 % (12-44); MEAN CORPUSCULAR HEMOGLOBIN 26 PG (25-34); MEAN CORPUSCULAR HGB CONC 31 G/DL (32-36); MEAN CORPUSCULAR VOLUME 84 FL (80-99); MONOCYTES # (AUTO) 0.6 X 10^3 (0.0-1.0); MONOCYTES % (AUTO) 4 % (0-12); NEUTROPHILS # (AUTO) 12.9 X 10^3 (1.8-7.8); NEUTROPHILS % (AUTO) 87 % (42-75); PLATELET COUNT 446 10^3/uL (130-400); RED CELL DISTRIBUTION WIDTH 16.8 % (10.0-14.5); WHITE BLOOD COUNT 14.8 10^3/uL (4.3-11.0)
[2020-04-01] MEDS: ADVAIR HFA 115/21 MCG INHALER 8 GM IH SCH (07:05)
[2020-04-01] MEDS: ALBUTEROL/IPRATROP (COMBIVENT RESPIMAT) 4 GM INHALER IH SCH ×2 (07:06→11:36)
[2020-04-01 07:17] LABS: ALBUMIN 3.8 GM/DL (3.2-4.5); CHLORIDE 106 MMOL/L (98-107)
[2020-04-01 07:18] LABS: POTASSIUM 4.3 MMOL/L (3.6-5.0); SODIUM 138 MMOL/L (135-145)
[2020-04-01 07:19] LABS: CALCIUM 9.3 MG/DL (8.5-10.1)
[2020-04-01 07:20] LABS: GLUCOSE 149 MG/DL (70-105); TOTAL PROTEIN 8.1 GM/DL (6.4-8.2)
[2020-04-01 07:21] LABS: CARBON DIOXIDE 22 MMOL/L (21-32)
[2020-04-01 07:22] LABS: BILIRUBIN,TOTAL 0.2 MG/DL (0.1-1.0)
[2020-04-01 07:23] LABS: ALKALINE PHOSPHATASE 79 U/L (40-136); CREATININE SERUM 0.67 MG/DL (0.60-1.30); GFR ESTIMATED > 60
[2020-04-01 07:25] LABS: BUN/CREATININE RATIO 22
[2020-04-01 07:26] LABS: ALANINE AMINOTRANSFERASE 14 U/L (0-55)
[2020-04-01] MEDS: DOCUSATE SODIUM 100 MG (COLACE) CAP PO SCH (08:11)
[2020-04-01] MEDS: LORATADINE (CLARITIN) 10 MG TAB PO SCH (08:12)
[2020-04-01] MEDS: DULoxetine 30 MG (CYMBALTA) CAP PO SCH (08:12)
[2020-04-01] MEDS: GABAPENTIN 300 MG (NEURONTIN) CAP PO SCH (08:13)
--- NOTE | 2020-04-01 08:18 | NUR ---
OVERNIGHT PULSE OX Addendum: 04/01/20 at 1157 by LORA JARAMILLO RT LOWEST SAT 85% FOR 56 SECONDS
[2020-04-01 08:27] VITALS: BP 151/106
--- NOTE | 2020-04-01 08:56 | Cardiology Progress Note ---
Subjective Date Seen by Provider: April 01, 2020 Time Seen by Provider: 08:55 Subjective/Events-last exam Patient is sitting in a chair, comfortable, feeling better. No new complaint Review of Systems General: No Chills, No Night Sweats; Fatigue; No Malaise, No Appetite, No Other HEENT: No Head Aches, No Visual Changes, No Eye Pain, No Ear Pain, No Dysphasia, No Sinus Congestion, No Post Nasal Drip, No Sore Throat, No Other Pulmonary: No Dyspnea, No Cough, No Pleuritic Chest Pain, No Other Cardiovascular: No: Chest Pain, Palpitations, Orthopnea, Paroxysmal Noc. Dyspnea, Edema, Lt Headedness, Other Objective-Cardiology Exam Last Set of Vital Signs Vital Signs 03/30/20 04/01/20 22:13 08:27 Temp 36.6 Pulse 112 Resp 20 B/P (MAP) 151/106 (121) Pulse Ox 93 O2 Delivery Room Air O2 Flow Rate 2.50 Capillary Refill : Less Than 3 Seconds I&O Intake and Output 04/01/20 00:00 Intake Total 1340 ml Balance 1340 ml Intake Oral 1340 ml # Voids 7 # Bowel Movements 5 General: Alert, Oriented X3, Cooperative HEENT: Atraumatic, PERRLA Neck: Supple, No JVD, No Thyromegaly Lungs: Clear to Auscultation, Normal Air Movement Heart: Regular Rate, Normal S1, Normal S2, No Murmurs Abdomen: Normal Bowel Sounds, Soft, No Tenderness, No Hepatosplenomegaly, No Masses Extremities: No Clubbing, No Cyanosis, No Edema, Normal Pulses, No Tenderness/Swelling Skin: No Rashes, No Breakdown, No Significant Lesion Neuro: Normal Gait, Normal Speech, Strength at 5/5 X4 Ext, Normal Tone, Sensation Intact Psych/Mental Status: Mental Status NL, Mood NL Results Lab Laboratory Tests 04/01/20 06:41 A/P-Cardiology Admission Diagnosis Chest pain Dyspnea Tachycardia Morbid obesity Assessment/Plan Chest pain, nonspecific etiology, EKG reveals sinus tachycardia with no acute ST changes. Cardiac enzymes negative. Unlikely to be cardiac in nature, continue to monitor at this point Hypertension, probably worsened by steroids, started on losartan 50 mg daily. Continue to monitor Shortness of breath, worsening recently, full workup was negative including COVID testing is negative. Sinus tachycardia, probably due to acute exacerbation of COPD. Continue to m onitor at this time Morbid obesity, discussed weight loss. Hypothyroidism, managed by primary care physician Anxiety/depression, managed by primary care physician Okay for discharge from cardiology standpoint Clinical Quality Measures DVT/VTE Risk/Contraindication: Risk Factor Score Per Nursin RFS Level Per Nursing on Admit: 4+=Very High HERLINDA WANG MD April 01, 2020 08:56
[2020-04-01] MEDS ORDERED: LOSARTAN 50 MG (COZAAR) TAB PO SCH (09:00)
[2020-04-01] MEDS ORDERED: ENOXAPARIN 60 MG/0.6 ML (LOVENOX) SYR SC SCH (10:00)
[2020-04-01 11:26] VITALS: BP 138/96
[2020-04-01] MEDS ORDERED: LOPERAMIDE 2 MG (IMODIUM) TABLET PO ONE (11:30)
--- NOTE | 2020-04-01 11:57 | NUR ---
PATIENT WALKED 800 FEET ON ROOM AIR. SAT DIDN'T DROPPED BELOW 93%
[2020-04-01 12:07] VITALS: BP 168/96
[2020-04-01] MEDS ORDERED: LORA10TA7 PO (12:34)
[2020-04-01] MEDS ORDERED: FLUT12AE4 IH (12:34)
[2020-04-01] MEDS ORDERED: PRED10TA22 PO (12:34)
[2020-04-01] MEDS ORDERED: MONT10TA26 PO (12:34)
[2020-04-01] MEDS ORDERED: LOSA50TA63 PO (12:34)
[2020-04-01] MEDS ORDERED: IPRA4AER IH (12:34)
--- NOTE | 2020-04-01 12:35 | Discharge Summary ---
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 Dr May and Dr Briceno consulted and ECHO and CT angiogram reviewed due to elevated d-dimer so VQ scan performed and no evidence of PE. Lovenox maintained. Combivent and Advair MDI's were given to her at the bedside and Nebs and O2 maintained along with IV steroids. Patient ultimately improved enough to DC home without home O2 required. Close f/u with PCP and smoking cessation counseled. Labs and Pending Lab Test: Laboratory Tests 04/01/20 06:41: White Blood Count 14.8H, Red Blood Count 4.21L, Hemoglobin 10.9L, Hematocrit 35, Mean Corpuscular Volume 84, Mean Corpuscular Hemoglobin 26, Mean Corpuscular Hemoglobin Concent 31L, Red Cell Distribution Width 16.8H, Platelet Count 446H, Mean Platelet Volume 9.0, Neutrophils (%) (Auto) 87H, Lymphocytes (%) (Auto) 9L, Monocytes (%) (Auto) 4, Eosinophils (%) (Auto) 0, Basophils (%) (Auto) 0, Neutrophils # (Auto) 12.9H, Lymphocytes # (Auto) 1.3, Monocytes # (Auto) 0.6, Eosinophils # (Auto) 0.0, Basophils # (Auto) 0.0, Sodium Level 138, Potassium Level 4.3, Chloride Level 106, Carbon Dioxide Level 22, Anion Gap 10, Blood Urea Nitrogen 15, Creatinine 0.67, Estimat Glomerular Filtration Rate > 60, BUN/Creatinine Ratio 22, Glucose Level 149H, Calcium Level 9.3, Corrected Calcium 9.5, Total Bilirubin 0.2, Aspartate Amino Transf (AST/SGOT) 10, Alanine Aminotransferase (ALT/SGPT) 14, Alkaline Phosphatase 79, Total Protein 8.1, Albumin 3.8 Home Meds Active Advair Hfa 115-21 Mcg Inhaler (Fluticasone/Salmeterol) 12 Gm Hfa.aer.ad 2 Puff IH RTBID 30 Days Prednisone 10 Mg Tab.ds.pk 10 Mg PO DAILY 3 pills once daily for 2 days then 2 pills daily for 2 days Montelukast Sodium 10 Mg Tablet 10 Mg PO HS Losartan Potassium 50 Mg Tablet 50 Mg PO DAILY Combivent Respimat Inhal [place] (Albuterol/Ipratropium) 4 Gm Aero 0 Gm IH RTQID 30 Days Loratadine 10 Mg Tablet 10 Mg PO DAILY Ondansetron Odt (Ondansetron) 4 Mg Tab.rapdis 4 Mg PO Q6H PRN Reported Excedrin Migraine Caplet (Aspirin/Acetaminophen/Caffeine) 1 Each Tablet 2 Each PO Q6-8HR PRN Naproxen 500 Mg Tablet 500 Mg PO Q12H PRN Neurontin (Gabapentin) 300 Mg Capsule 300-600 Mg PO HS PRN Neurontin (Gabapentin) 300 Mg Capsule 300 Mg PO DAILY Tramadol HCl 50 Mg Tablet 50 Mg PO TID PRN Cyclobenzaprine HCl 5 Mg Tablet 5 Mg PO TID PRN Xanax (Alprazolam) 1 Mg Tablet 1 Mg PO TID PRN Levothyroxine Sodium 137 Mcg Tablet 137 Mcg PO DAILY Cymbalta (Duloxetine HCl) 60 Mg Capsule.dr 60 Mg PO DAILY Abilify (Aripiprazole) 10 Mg Tablet 10 Mg PO DAILY Assessment/Pt Instructions Ximena Sharma in 1 week Discharge Planning: <30 minutes discharge planning Discharge Instructions Discharge Diet: No Restrictions Activity as Tolerated: Yes Discharge Physical Examination Vital Signs Vital Signs Date Time Temp Pulse Resp B/P (MAP) Pulse Ox O2 Delivery O2 Flow Rate FiO2 04/01/20 12:20 119 04/01/20 12:07 36.6 20 168/96 (120) 92 Room Air 03/30/20 22:13 2.50 General Appearance: No Apparent Distress, WD/WN, Chronically ill Respiratory: Lungs Clear, Normal Breath Sounds Allergies: Coded Allergies: Sulfa (Sulfonamide Antibiotics) (Verified Allergy, Unknown, 01/23/20) Discharge Summary Date of Admission March 30, 2020 at 00:20 Date of Discharge Discharge Date: April 01, 2020 Admission Diagnosis Assessment: Dyspnea Hypoxia Obesity Suspect ANGEL/OHS Emotional problems Neuropathy Plan: VQ scan since angiogram was inconclusive Lovenox until VQ scan reveals low probability of PE O2 Nebs Steroids ECHO Cardiology Pulmonology Discharge Diagnosis Assessment: Dyspnea Hypoxia Obesity Suspect ANGEL/OHS Emotional problems Neuropathy Plan: VQ scan negative Lovenox DVT PPx O2 Nebs Steroids ECHO Cardiology Pulmonology Home O2 evaluation Night time O2 evaluation (1) Dyspnea Status: Acute Qualifiers: Qualified Codes: R06.09 - Other forms of dyspnea (2) Elevated d-dimer Status: Acute Clinical Quality Measures DVT/VTE Risk/Contraindication: Risk Factor Score Per Nursin RFS Level Per Nursing on Admit: 4+=Very High TRINH ARNDT DO April 01, 2020 12:35
== END 2020-04-01 14:00 | disposition home or self-care (01) ==
LOC: EDUNIT# 21:53 → ER FS 21:54 → ICU 03-30 00:20 → 4TH 03-31 09:30
PROVIDERS: ADMIT Internal Medicine; ATTEND Internal Medicine
DX: J44.1 Chronic obstructive pulmonary disease with (acute) exacerbation (principal); R09.02 Hypoxemia; R06.03 Acute respiratory distress; R79.89 Other specified abnormal findings of blood chemistry; R00.0 Tachycardia, unspecified; E03.9 Hypothyroidism, unspecified; M79.7 Fibromyalgia; G62.9 Polyneuropathy, unspecified; E66.01 Morbid (severe) obesity due to excess calories; F41.9 Anxiety disorder, unspecified; F17.210 Nicotine dependence, cigarettes, uncomplicated; F93.9 Childhood emotional disorder, unspecified; F32.9 Major depressive disorder, single episode, unspecified; Z68.43 Body mass index [BMI] 50.0-59.9, adult; Z88.2 Allergy status to sulfonamides; Z79.899 Other long term (current) drug therapy
CPT/HCPCS: 36415; 36600; 71045; 71046; 71275; 80053; 82805; 82962; 83036; 83735; 83880; 84100; 84439; 84443; 84484; 85007; 85025; 85027; 85379; 85610; 85730; 86141; 87635; 93005; 94640; 94760; 94761; 94762

== ENCOUNTER 2020-05-29 19:05 | Emergency (ER) | payer OTHER ==
[~2020-05-29] VITALS: Ht 167 cm; Wt 160.0 kg
[~2020-05-29 19:05] MED LIST changes: +ASPI-789 PO; +CYCL5TAB PO; +FLUT12AE4 IH; +GABA300C PO; +IPRA4AER IH; +LORA10TA7 PO; +LOSA50TA63 PO; +MONT10TA26 PO; +NAPR-915 PO; +PRED10TA22 PO
[2020-05-29] MEDS ORDERED: NS IV 1000 ML 1,000 ML IV STA (19:09)
--- NOTE | 2020-05-29 19:11 | ED General ---
General Stated Complaint: HEAT EXHAUSTION Source of Information: Patient, EMS, Old Records, RN/MD History of Present Illness Date Seen by Provider: May 29, 2020 Time Seen by Provider: 19:00 Initial Comments This patient is a 40-year-old female presents to the emergency department with complaint of a heat-related illness. Patient had been out of local [place] with temperatures in the upper 90s with heat index over 100. Patient states she is really drink much water today. Patient station. Sweating about 30 minutes prior to calling him is. Patient feels dizzy and confused. Patient is able to answer questions and move or so. We'll do medical evaluation treatment is needed Timing/Duration: 1 Hour Allergies and Home Medications Allergies Coded Allergies: Sulfa (Sulfonamide Antibiotics) (Verified Allergy, Unknown, 01/23/20) Home Medications Albuterol/Ipratropium 4 Gm Aero, 0 GM IH RTQID Prescribed by: TRINH ARNDT on 04/01/20 1234 Alprazolam 1 Mg Tablet, 1 MG PO TID PRN for ANXIETY, (Reported) Aripiprazole 10 Mg Tablet, 10 MG PO DAILY, (Reported) Aspirin/Acetaminophen/Caffeine 1 Each Tablet, 2 EACH PO Q6-8HR PRN for Headache, (Reported) Cyclobenzaprine HCl 5 Mg Tablet, 5 MG PO TID PRN for MUSCLE SPASMS, (Reported) Duloxetine HCl 60 Mg Capsule.dr, 60 MG PO DAILY, (Reported) Fluticasone/Salmeterol 12 Gm Hfa.aer.ad, 2 PUFF IH RTBID Prescribed by: TRINH ARNDT on 04/01/20 1234 Gabapentin 300 Mg Capsule, 300 MG PO DAILY, (Reported) Gabapentin 300 Mg Capsule, 300-600 MG PO HS PRN for NERVE PAIN, (Reported) Levothyroxine Sodium 137 Mcg Tablet, 137 MCG PO DAILY, (Reported) Loratadine 10 Mg Tablet, 10 MG PO DAILY Prescribed by: TRINH ARNDT on 04/01/20 1234 Losartan Potassium 50 Mg Tablet, 50 MG PO DAILY Prescribed by: TRINH ARNDT on 04/01/20 1234 Montelukast Sodium 10 Mg Tablet, 10 MG PO HS Prescribed by: TRINH ARNDT on 04/01/20 1234 Naproxen 500 Mg Tablet, 500 MG PO Q12H PRN for PAIN-MILD (1-4), (Reported) Ondansetron 4 Mg Tab.rapdis, 4 MG PO Q6H PRN for NAUSEA/VOMITING-1ST LINE Prescribed by: DANIEL HAMMER on 01/25/20 1235 Prednisone 10 Mg Tab.ds.pk, 10 MG PO DAILY 3 pills once daily for 2 days then 2 pills daily for 2 days Prescribed by: TRINH ARNDT on 04/01/20 1234 Tramadol HCl 50 Mg Tablet, 50 MG PO TID PRN for PAIN-MODERATE (5-7), (Reported) Patient Home Medication List Home Medication List Reviewed: Yes Review of Systems Review of Systems Constitutional: No no symptoms reported; see HPI; No chills, No diaphoresis, No dizziness, No fever, No malaise; weakness; No weight gain, No weight loss, No other EENTM: No see HPI, No no symptoms reported, No ear discharge, No hearing loss, No ear pain, No blurred vision, No double vision, No eye pain, No tearing, No vision loss, No dental problems, No hoarseness, No mouth pain, No mouth swelling, No epistaxis, No nose congestion, No nose pain, No throat pain, No throat swelling, No other Respiratory: No no symptoms reported, No see HPI, No cough, No dyspnea on exertion, No hemoptysis, No orthopnea, No phlegm, No short of breath, No stridor, No wheezing, No other Cardiovascular: No no symptoms reported, No see HPI, No chest pain, No edema, No Hx of Intervention, No palpitations, No syncope, No vascular heart diseas, No other Gastrointestinal: No RUQ, No LUQ, No RLQ, No LLQ, No no symptoms reported, No see HPI, No abdominal pain, No constipation, No diarrhea, No dysphagia, No hematemesis, No heartburn, No jaundice, No loss of appetite, No melena, No nausea, No vomiting, No other Genitourinary: No no symptoms reported, No see HPI, No decreased output, No discharge, No dysuria, No frequency, No hematuria, No hesitancy, No incontinen ce, No nocturia, No pain, No other Musculoskeletal: No no symptoms reported, No see HPI, No back pain, No gout, No joint pain, No joint swelling, No muscle pain, No muscle stiffness, No muscle cramps, No muscle twitching, No muscle weakness, No neck pain, No other All Other Systems Reviewed Negative Unless Noted: Yes Past B[place]iijd-Evuyjh-[place] Hx Patient Social History Type Used: Cigarettes 2nd Hand Smoke Exposure: Yes Recent Foreign Travel: No Contact w/Someone Who Travel: No Recent Hopitalizations: No Immunizations Up To Date Date of Influenza Vaccine: Nov 24, 2019 Seasonal Allergies Seasonal Allergies: No Past Medical History Surgeries: Yes Section, Gallbladder Respiratory: No Cardiac: No Neurological: No Genitourinary: No Gastrointestinal: No Musculoskeletal: No Endocrine: No HEENT: No Cancer: No Psychosocial: Yes Anxiety, Depression Integumentary: No Blood Disorders: No Family Medical History No Pertinent Family Hx Physical Exam Vital Signs Vital Signs - First Documented 05/29/20 19:05 Temp 37.1 Pulse 116 Resp 16 B/P (MAP) 144/63 (90) Pulse Ox 95 O2 Delivery Nasal Cannula Capillary Refill : Height, Weight, BMI Height: '" Weight: lbs. oz. kg; 59.48 BMI Method: General Appearance: No Apparent Distress, WD/WN HEENT: PERRL/EOMI, TMs Normal, Normal ENT Inspection, Pharynx Normal Neck: Full Range of Motion, Normal Inspection, Non Tender, Supple, Carotid Bruit Respiratory: Chest Non Tender, Lungs Clear, Normal Breath Sounds, No Accessory Muscle Use, No Respiratory Distress Cardiovascular: Regular Rate, Rhythm, No Edema, No Gallop, No JVD, No Murmur, Normal Peripheral Pulses Gastrointestinal: Normal Bowel Sounds, No Organomegaly, No Pulsatile Mass, Non Tender, Soft Extremity: Normal Capillary Refill, Normal Inspection, Normal Range of Motion, Non Tender, No Calf Tenderness, No Pedal Edema Neurologic/Psychiatric: Alert, Oriented x3, No Motor/Sensory Deficits, Normal Mood/Affect Progress/Results/Core Measures Suspected Sepsis SIRS Temperature: Pulse: Respiratory Rate: Laboratory Tests 05/29/20 19:15: White Blood Count 9.9 Blood Pressure / Mean: Laboratory Tests 05/29/20 19:15: Creatinine 0.91, INR Comment 1.0, Platelet Count 369, Total Bilirubin 0.2 Results/Orders Lab Results Laboratory Tests Test 05/29/20 19:15 05/29/20 20:28 Range/Units White Blood Count 9.9 4.3-11.0 10^3/uL Red Blood Count 4.46 4.35-5.85 10^6/uL Hemoglobin 11.5 11.5-16.0 G/DL Hematocrit 37 35-52 % Mean Corpuscular Volume 83 80-99 FL Mean Corpuscular Hemoglobin 26 25-34 PG Mean Corpuscular Hemoglobin Concent 31 L 32-36 G/DL Red Cell Distribution Width 16.8 H 10.0-14.5 % Platelet Count 369 130-400 10^3/uL Mean Platelet Volume 9.1 7.4-10.4 FL Neutrophils (%) (Auto) 73 42-75 % Lymphocytes (%) (Auto) 19 12-44 % Monocytes (%) (Auto) 5 0-12 % Eosinophils (%) (Auto) 2 0-10 % Basophils (%) (Auto) 0 0-10 % Neutrophils # (Auto) 7.2 1.8-7.8 X 10^3 Lymphocytes # (Auto) 1.9 1.0-4.0 X 10^3 Monocytes # (Auto) 0.5 0.0-1.0 X 10^3 Eosinophils # (Auto) 0.2 0.0-0.3 10^3/uL Basophils # (Auto) 0.0 0.0-0.1 10^3/uL Prothrombin Time 13.4 12.2-14.7 SEC INR Comment 1.0 0.8-1.4 Sodium Level 142 135-145 MMOL/L Potassium Level 3.7 3.6-5.0 MMOL/L Chloride Level 105 98-107 MMOL/L Carbon Dioxide Level 23 21-32 MMOL/L Anion Gap 14 5-14 MMOL/L Blood Urea Nitrogen 15 7-18 MG/DL Creatinine 0.91 0.60-1.30 MG/DL Estimat Glomerular Filtration Rate > 60 BUN/Creatinine Ratio 16 Glucose Level 108 H 70-105 MG/DL Calcium Level 9.2 8.5-10.1 MG/DL Corrected Calcium 9.4 8.5-10.1 MG/DL Total Bilirubin 0.2 0.1-1.0 MG/DL Aspartate Amino Transf (AST/SGOT) 13 5-34 U/L Alanine Aminotransferase (ALT/SGPT) 13 0-55 U/L Alkaline Phosphatase 93 40-136 U/L Troponin I < 0.30 <0.30 NG/ML Pro-B-Type Natriuretic Peptide 54.4 <75.0 PG/ML Total Protein 7.4 6.4-8.2 GM/DL Albumin 3.8 3.2-4.5 GM/DL Urine Color DARK YELLOW Urine Clarity CLOUDY Urine pH 5.5 5-9 Urine Specific [place] >=1.030 1.016-1.022 Urine Protein TRACE H NEGATIVE Urine Glucose (UA) NEGATIVE NEGATIVE Urine Ketones NEGATIVE NEGATIVE Urine Nitrite POSITIVE H NEGATIVE Urine Bilirubin 1+ H NEGATIVE Urine Urobilinogen 1.0 < = 1.0 MG/DL Urine Leukocyte Esterase NEGATIVE NEGATIVE Urine RBC (Auto) TRACE-L NEGATIVE Urine RBC 0-2 /HPF Urine WBC 10-25 H /HPF Urine Squamous Epithelial Cells 10-25 H /HPF Urine Crystals PRESENT H /LPF Urine Calcium Oxalate Crystals LARGE H /LPF Urine Bacteria LARGE H /HPF Urine Casts PRESENT /LPF Urine Hyaline Casts 2-5 H /LPF Urine Mucus LARGE H /LPF Urine Culture Indicated YES My Orders Orders - ALEX BEARDEN MD Comprehensive Metabolic Panel (05/29/20 19:08) Cbc With Automated Diff (05/29/20 19:08) Drug Screen Stat (Urine) (05/29/20 19:08) Urinalysis (05/29/20 19:08) Ekg Tracing (05/29/20 19:08) Troponin I Fs (05/29/20 19:08) Probnp Fs (05/29/20 19:08) Protime With Inr (05/29/20 19:08) Ns Iv 1000 Ml (Sodium Chloride 0.9%) (05/29/20 19:09) Creatine Kinase (05/29/20 19:17) Ed Iv/Invasive Line Start (05/29/20 19:18) Vital Signs/I&O 05/29/20 19:05 Temp 37.1 Pulse 116 Resp 16 B/P (MAP) 144/63 (90) Pulse Ox 95 O2 Delivery Nasal Cannula Capillary Refill : Progress Note : Time: 20:41 Progress Note Patient is feeling much improved after 2 L of normal saline. We did discuss at length about different options. Patient will orally rehydrate and take the next 2-3 days off work. Patient should avoid excessive exposure to the summertime heat. Drink plenty of water. Follow up with PCP in 2-3 days ECG Initial ECG Impression Date: May 29, 2020 Initial ECG Impression Time: 19:15 Initial ECG Rate: 109 Initial ECG Rhythm: S.Tach Initial ECG Impression: Normal Initial ECG Comparisson: No Previous ECG Available Comment Sinus tachycardia heart rate 109 nonspecific T-wave changes. Departure Impression Primary Impression: Heat exhaustion Disposition: 01 HOME, SELF-CARE Condition: Stable Departure-Patient Inst. Decision time for Depature: 20:42 Referrals: [facility] (PCP/Family) Primary Care Physician Patient Instructions: Heat Exhaustion and Heat Stroke (DC) Add. Discharge Instructions: We did discuss at length about different options. Patient will orally rehydrate and take the next 2-3 days off work. Patient should avoid excessive exposure to the summertime heat. Drink plenty of water. Follow up with PCP in 2-3 days ALEX BEARDEN MD May 29, 2020 19:11
--- OUTSIDE RECORDS SUMMARY | 2020-05-29 19:14 | XMS REPORT | Continuity of Care Document ---
Author Organization Unknown Address Unknown Phone Unavailable Allergies Active Description Code Type Severity Reaction Onset Reported/Identified Relationship to Patient Clinical Status Yes Sulfa (Sulfonamide Antibiotics) [id number] Drug Allergy Unknown N/A 020 Medications [...] 01/25/2020 MADI BELTRÁN DO Ot Z79.899 OTHER [employer] (CURRENT) DRUG THERAPY 01/25/2020 MADI BELTRÁN DO [...] 01/25/2020 MADI BELTRÁN DO Ot Z79.899 OTHER CUSTODIAL (CURRENT) DRUG THERAPY 01/25/2020 [facility], MADI D Ot Z88. 2 ALLERGY STATUS TO SULFONAMIDES STATUS 01/25/2020 [facility], MADI D Ot Z90.710 ACQUIRED ABSENCE OF BOTH CERVIX AND UTER 02/10/2020 [place] [facility], MADI D Ot A04. 72 ENTEROCOLITIS D/T CLOSTRIDIUM DIFFICILE, 02/10/2020 BELTRÁN DO, MADI D Ot F17.210 NICOTINE DEPENDENCE, CIGARETTES, UNCOMPL 02/10/2020 BELTRÁN DO, MADI D Ot F32. 9 MAJOR DEPRESSIVE DISORDER, SINGLE EPISOD 02/10/2020 BELTRÁN DO, MADI D Ot F41. 9 ANXIETY DISORDER, UNSPECIFIED 02/10/2020 [facility], MADI D Ot K43. 2 INCISIONAL HERNIA WITHOUT OBSTRUCTION OR 02/10/2020 BELTRÁN DO, MADI D Ot K43. 9 VENTRAL HERNIA WITHOUT OBSTRUCTION OR GA 02/10/2020 BELTRÁN DO, MADI D Ot Z79.899 OTHER CUSTODIAL (CURRENT) DRUG THERAPY 02/10/2020 [facility], MADI Weinstein Ot Z88. 2 ALLERGY STATUS TO SULFONAMIDES STATUS 02/10/2020 [facility], MADI D Ot Z90.710 ACQUIRED ABSENCE OF BOTH CERVIX AND UTER 03/02/2020 LEANDER HENRIQUEZ [employer] Ot S49.91XA UNSP INJURY OF RIGHT SHOULDER AND UPPER 03/02/2020 LEANDER HENRIQUEZ [employer] Ot X58.XXXA EXPOSURE TO OTHER SPECIFIED FACTORS, INI 03/30/2020 LEANDER HENRIQUEZ [employer] Ot S49.91XA UNSP INJURY OF RIGHT SHOULDER AND UPPER 03/30/2020 LEANDER HENRIQUEZ [employer] Ot X58.XXXA EXPOSURE TO OTHER SPECIFIED FACTORS, INI 04/01/2020 YRIS VALLADARES TRINH Ot E03.9 HYPOTHYROIDISM, UNSPECIFIED 04/01/2020 YRIS VALLADARES TRINH Ot E66.01 MORBID (SEVERE) OBESITY DUE TO EXCESS CA 04/01/2020 YRIS DO, TRINH Ot F17.21 0 NICOTINE DEPENDENCE, CIGARETTES, UNCOMPL 04/01/2020 ARNDT DO, TRINH Ot F32.9 MAJOR DEPRESSIVE DISORDER, SINGLE EPISOD 04/01/2020 ARNDT DO TRINH Ot F41.9 ANXIETY DISORDER, UNSPECIFIED 04/01/2020 ARNDT DO, TRINH Ot F93.9 CHILDHOOD EMOTIONAL DISORDER, UNSPECIFIE 04/01/2020 ARNDT DO, TRINH Ot G62.9 POLYNEUROPATHY, UNSPECIFIED 04/01/2020 ARNDT DO, TRINH Ot J44.1 CHRONIC OBSTRUCTIVE PULMONARY DISEASE W 04/01/2020 ARNDT DO, TRINH Ot M79.7 FIBROMYALGIA 04/01/2020 ARNDT DO, TRINH Ot R00.0 TACHYCARDIA, UNSPECIFIED 04/01/2020 [facility] DO, TRINH Ot R06.03 ACUTE RESPIRATORY DISTRESS 04/01/2020 ARNDT DO, TRINH Ot R09.02 HYPOXEMIA 04/01/2020 ARNDT DO, TRINH Ot R79.89 OTHER SPECIFIED ABNORMAL FINDINGS OF BLO 04/01/2020 ARNDT DO TRINH Ot Z68.43 BODY MASS INDEX (BMI) 50.0-59.9, ADULT 04/01/2020 ARNDT DO, TRINH Ot Z79.89 9 OTHER CUSTODIAL (CURRENT) DRUG THERAPY 04/01/2020 YRIS VALLADARES TRINH Ot Z88.2 ALLERGY STATUS TO SULFONAMIDES STATUS 04/06/2020 LEANDER HENRIQUEZ [employer]PENTER Ot S49.91XA UNSP INJURY OF RIGHT SHOULDER AND UPPER 04/06/2020 LEANDER HENRIQUEZ [employer] Ot X58.XXXA EXPOSURE TO OTHER SPECIFIED FACTORS, INI 04/08/2020 Y[facility] DO, TRINH Ot E03.9 HYPOTHYROIDISM, UNSPECIFIED 04/08/2020 ARNDT DO, TRINH Ot E66.01 MORBID (SEVERE) OBESITY DUE TO EXCESS CA 04/08/2020 ARNDT DO, TRINH Ot F17.21 0 NICOTINE DEPENDENCE, CIGARETTES, UNCOMPL 04/08/2020 ARNDT DO, TRINH Ot F32.9 MAJOR DEPRESSIVE DISORDER, SINGLE EPISOD 04/08/2020 ARNDT DO, TRINH Ot F41.9 ANXIETY DISORDER, UNSPECIFIED 04/08/2020 ARNDT DO, TRINH Ot F93.9 CHILDHOOD EMOTIONAL DISORDER, UNSPECIFIE 04/08/2020 ARNDT DO, TRINH Ot G62.9 POLYNEUROPATHY, UNSPECIFIED 04/08/2020 ARNDT DO, TRINH Ot J44.1 CHRONIC OBSTRUCTIVE PULMONARY DISEASE W 04/08/2020 ARNDT DO, TRINH Ot M79.7 FIBROMYALGIA 04/08/2020 ARNDT DO, TRINH Ot R00.0 TACHYCARDIA, UNSPECIFIED 04/08/2020 ARNDT DO, TRINH Ot R06.03 ACUTE RESPIRATORY DISTRESS 04/08/2020 ARNDT DO, TRINH Ot R09.02 HYPOXEMIA 04/08/2020 ARNDT DO, TRINH Ot R79.89 OTHER SPECIFIED ABNORMAL FINDINGS OF BLO 04/08/2020 ARNDT DO, TRINH Ot Z68.43 BODY MASS INDEX (BMI) 50.0-59.9, ADULT 04/08/2020 ARNDT DO, TRINH Ot Z79.89 9 OTHER SUPER[employer] (CURRENT) DRUG THERAPY 04/08/2020 ARNDT DO, TRINH Ot Z88.2 ALLERGY STATUS TO SULFONAMIDES STATUS 04/08/2020 ARNDT DO, TRINH Ot E03.9 HYPOTHYROIDISM, UNSPECIFIED 04/08/2020 ARNDT DO, TRINH Ot E66.01 MORBID (SEVERE) OBESITY DUE TO EXCESS CA 04/08/2020 ARNDT DO, TRINH Ot F17.21 0 NICOTINE DEPENDENCE, CIGARETTES, UNCOMPL 04/08/2020 ARNDT DO, TRINH Ot F32.9 MAJOR DEPRESSIVE DISORDER, SINGLE EPISOD 04/08/2020 ARNDT DO, TRINH Ot F41.9 ANXIETY DISORDER, UNSPECIFIED 04/08/2020 ANRDT DO, TRINH Ot F93.9 CHILDHOOD EMOTIONAL DISORDER, UNSPECIFIE 04/08/2020 ARNDT DO, TRINH Ot G62.9 POLYNEUROPATHY, UNSPECIFIED 04/08/2020 ARNDT DO, TRINH Ot J44.1 CHRONIC OBSTRUCTIVE PULMONARY DISEASE W 04/08/2020 ARNDT DO, TRINH Ot M79.7 FIBROMYALGIA 04/08/2020 ARNDT DO, TRINH Ot R00.0 TACHYCARDIA, UNSPECIFIED 04/08/2020 ARNDT DO, TRINH Ot R06.03 ACUTE RESPIRATORY DISTRESS 04/08/2020 ARNDT DO, TRINH Ot R09.02 HYPOXEMIA 04/08/2020 ARNDT DO, TRINH Ot R79.89 OTHER SPECIFIED ABNORMAL FINDINGS OF BLO 04/08/2020 ARNDT DO, TRINH Ot Z68.43 BODY MASS INDEX (BMI) 50.0-59.9, ADULT 04/08/2020 ARNDT DO, TRINH Ot Z79.89 9 OTHER CUSTODIAL (CURRENT) DRUG THERAPY 04/08/2020 ARNDT DO, TRINH Ot Z88.2 ALLERGY STATUS TO SULFONAMIDES STATUS Procedures There is no data. Results Test [...] 7-25 CREATININE 0.70 mg/dL 0.50-1.10 eGFR NON-AFR. [place]USSI[place] 109 mL/min/1.73m2 > OR = 60 eGFR [...] CALCIUM CORRECTED 9.2 mg/dL 8.5-10.1 Lipase - 03/14/20 02:50 Lipase 15 U/L 8-78 Manual absolute [...] NRG Clostridium difficile DNA detection by p denita and target amplification method - 01/23/20 15:57 [...] 01/23/20 15:57 Automated blood complete blood count ( mogram) panel - 01/24/20 05:31 Blood leukocytes [...] - 01/24/20 05:31 Magnesium 2.1 mg/dL 1.6-2.4 Capillary blood glucose measurement by g lucometer (mass/volume) - 03/29/20 22:25 Capillary blood glucose measurement by glucometer (mas s/volume) 131 mg/dL 70-110 Complete blood count (CBC) with automate d white blood cell (WBC) differential - 03/29/20 22:26 Blood leukocytes automated count (number/volume) 8.9 10*3/uL 4.3-11.0 Blood erythrocytes automated count (number/volume) 4.57 10*6/uL 4.35-5.85 Venous blood hemoglobin measurement (mass/volume) 11.9 g/dL 11.5-16.0 Blood hematocrit (volume fraction) 39 % 35-52 Automated erythrocyte mean corpuscular volume 85 [ foz_us] 80-99 Automated erythrocyte mean corpuscular h emoglobin (mass per erythrocyte) 26 pg 25-34 Automated erythrocyte mean corpuscular h emoglobin concentration measurement (mass/volume) 31 g/dL 32-36 Automated erythrocyte distribution width ratio 16. 4 % 10.0- 14.5 Automated blood platelet count (count/volume) 469 10*3/uL 130-400 Automated blood platelet mean volume measurement 8.9 [foz_us] 7.4-10.4 Automated blood neutrophils/100 leukocytes 68 % 42-75 Automated blood lymphocytes/100 leukocytes 23 % 12-44 Blood monocytes/100 leukocytes 6 % 0-12 Automated blood eosinophils/100 leukocytes 2 % 0-10 Automated blood basophils/100 leukocytes 0 % 0-10 Blood neutrophils automated count (number/volume) 6.0 10*3 1.8-7.8 Blood lymphocytes automated count (number/volume) 2.1 10*3 1.0-4.0 Blood monocytes automated count (number/volume) 0. 5 10*3 0.0-1.0 Automated eosinophil count 0.2 10*3/uL 0 .0-0.3 Automated blood basophil count (count/volume) 0.0 10*3/uL 0.0-0.1 PT panel in platelet poor plasma by coag ulation assay - 03/29/20 22:26 Prothrombin time (PT) in platelet poor plasma by coagu lation assay 12.9 s 12.2-14.7 INR in platelet poor plasma or blood by coagulation as say 0.9 0.8-1.4 Activated partial thromboplastin time (a PTT) in platelet poor plasma bycoagulation assay - 03/29/20 22:26 Activated partial thromboplastin time (a PTT) in platelet poor plasma bycoagulation assay 31 s 24-35 Fibrin D-dimer FEU measurement in platel et poor plasma (mass/volume) - 03/29/20 22:26 Fibrin D-dimer FEU measurement in platelet poor plasma (mass/volume) 0.68 ug/mL 0.00-0.49 Comprehensive metabolic panel - 03/29/20 22:26 Serum or plasma sodium measurement (moles/volume) 141 mmol/L 135-145 Serum or plasma potassium measurement (moles/volume) 4.2 mmol/L 3.6-5.0 Serum or plasma chloride measurement (moles/volume) 102 mmol/L 98-107 Carbon dioxide 26 mmol/L 21-32 Serum or plasma anion gap determination (moles/volume) 13 mmol/L 5-14 Serum or plasma urea nitrogen measurement (mass/volume ) 18 mg/dL 7-18 Serum or plasma creatinine measurement (mass/volume) 0.70 mg/dL 0.60-1.30 Serum or plasma urea nitrogen/creatinine mass ratio 26 NRG Serum or plasma creatinine measurement w ith calculation of estimated glomerular filtration rate > NRG Serum or plasma glucose measurement (mass/volume) 145 mg/dL 70-105 Serum or plasma calcium measurement (mass/volume) 9.6 mg/dL 8.5-10.1 Serum or plasma total bilirubin measurement (mass/volu me) 0.2 mg/dL 0.1-1.0 Serum or plasma alkaline phosphatase toby surement (enzymatic activity/volume) 107 U/L 40-136 Serum or plasma aspartate aminotransfera se measurement (enzymatic activity/volume) 17 U/L 5-34 Serum or plasma alanine aminotransferase measurement (enzymatic activity/volume) 13 U/L 0-55 Serum or plasma protein measurement (mass/volume) 8.2 g/dL 6.4-8.2 Serum or plasma albumin measurement (mass/volume) 4.0 g/dL 3.2-4.5 CALCIUM CORRECTED 9.6 mg/dL 8.5-10.1 TROPONIN I 03/29/20 22:26 TROPONIN I FS < 0.30 <0.30 PROBNP 03/29/20 22:26 PROBNP FS < 5.0 <75.0 CRP 03/29/20 22:26 CRP FS 1.93 mg/dL <0.50 Coronavirus SARS-CoV-2 SO 03/30/2 0 02:06 Coronavirus Ab [Units/volume] in Serum Negative Negative Complete blood count (CBC) with automate d white blood cell (WBC) differential - 03/30/20 02:16 Blood leukocytes automated count (number/volume) 6.9 10*3/uL 4.3-11.0 Blood erythrocytes automated count (number/volume) 4.20 10*6/uL 4.35-5.85 Venous blood hemoglobin measurement (mass/volume) 11.0 g/dL 11.5-16.0 Blood hematocrit (volume fraction) 35 % 35-52 Automated erythrocyte mean corpuscular volume 84 [ foz_us] 80-99 Automated erythrocyte mean corpuscular h emoglobin (mass per erythrocyte) 26 pg 25-34 Automated erythrocyte mean corpuscular h emoglobin concentration measurement (mass/volume) 31 g/dL 32-36 Automated erythrocyte distribution width ratio 16. 6 % 10.0- 14.5 Automated blood platelet count (count/volume) 409 10*3/uL 130-400 Automated blood platelet mean volume measurement 8.9 [foz_us] 7.4-10.4 Automated blood neutrophils/100 leukocytes 65 % 42-75 Automated blood lymphocytes/100 leukocytes 28 % 12-44 Blood monocytes/100 leukocytes 5 % 0-12 Automated blood eosinophils/100 leukocytes 3 % 0-10 Automated blood basophils/100 leukocytes 0 % 0-10 Blood neutrophils automated count (number/volume) 4.5 10*3 1.8-7.8 Blood lymphocytes automated count (number/volume) 1.9 10*3 1.0-4.0 Blood monocytes automated count (number/volume) 0. 3 10*3 0.0-1.0 Automated eosinophil count 0.2 10*3/uL 0 .0-0.3 Automated blood basophil count (count/volume) 0.0 10*3/uL 0.0-0.1 Comprehensive metabolic panel - 03/30/20 02:16 Serum or plasma sodium measurement (moles/volume) 136 mmol/L 135-145 Serum or plasma potassium measurement (moles/volume) 3.8 mmol/L 3.6-5.0 Serum or plasma chloride measurement (moles/volume) 102 mmol/L 98-107 Carbon dioxide 24 mmol/L 21-32 Serum or plasma anion gap determination (moles/volume) 10 mmol/L 5-14 Serum or plasma urea nitrogen measurement (mass/volume ) 17 mg/dL 7-18 Serum or plasma creatinine measurement (mass/volume) 0.70 mg/dL 0.60-1.30 Serum or plasma urea nitrogen/creatinine mass ratio 24 NRG Serum or plasma creatinine measurement w ith calculation of estimated glomerular filtration rate > NRG Serum or plasma glucose measurement (mass/volume) 113 mg/dL 70-105 Serum or plasma calcium measurement (mass/volume) 8.9 mg/dL 8.5-10.1 Serum or plasma total bilirubin measurement (mass/volu me) 0.2 mg/dL 0.1-1.0 Serum or plasma alkaline phosphatase toby surement (enzymatic activity/volume) 89 U/L 40-136 Serum or plasma aspartate aminotransfera se measurement (enzymatic activity/volume) 15 U/L 5-34 Serum or plasma alanine aminotransferase measurement (enzymatic activity/volume) 15 U/L 0-55 Serum or plasma protein measurement (mass/volume) 7.6 g/dL 6.4-8.2 Serum or plasma albumin measurement (mass/volume) 3.5 g/dL 3.2-4.5 CALCIUM CORRECTED 9.3 mg/dL 8.5-10.1 Serum or plasma troponin i.cardiac measu rement (mass/volume) - 03/30/20 02:16 Serum or plasma troponin i.cardiac measurement (mass/v olume) < ng/mL <0.028 Serum or plasma phosphate measurement (m ass/volume) - 03/30/20 02:16 Serum or plasma phosphate measurement (mass/volume) 3.8 mg/dL 2.3-4.7 Magnesium - 03/30/20 02:16 Magnesium 2.1 mg/dL 1.6-2.4 THYROID STIMULATING HORMONE - 03/30/20 0 2:16 THYROID STIMULATING HORMONE 2.41 u[iU]/mL 0.35-4.94 Serum or plasma thyroxine (T4) free kai urement (mass/volume) - 03/30/20 02:16 Serum or plasma thyroxine (T4) free measurement (mass/ volume) 0.88 ng/dL 0.70-1.48 Serum or plasma lithium measurement (mol es/volume) - 03/30/20 02:16 BNP PT < 10.0 <100.0 Serum or plasma troponin i.cardiac measu rement (mass/volume) - 03/30/20 10:55 Serum or plasma troponin i.cardiac measurement (mass/v olume) < ng/mL <0.028 Arterial blood gas measurement - 0 12:10 Blood pCO2 39 mm[Hg] 35-45 Blood pO2 59 mm[Hg] 79-93 Arterial blood bicarbonate measurement (moles/volume) 26 mmol/L 23-27 Arterial blood base excess by calculation 1.5 mmol /L -2.5-2.5 Arterial blood oxygen saturation measurement 88 % 94-100 * Inhaled oxygen flow rate 2 NRG Arterial blood pH measurement with patient temperature correction 7.43 7.37-7.43 Arterial blood carbon dioxide, total measurement (mole s/volume) 26.7 mmol/L 21.0-31.0 Body site LT RADIAL NRG Assessment of wrist artery patency prior to arterial p uncture YES-POS NRG Setting of ventilation mode NO NR G Measurement of body temperature 36.8 NRG Complete blood count (CBC) with automate d white blood cell (WBC) differential - 03/31/20 02:40 Blood leukocytes automated count (number/volume) 11.1 10*3/uL 4.3-11.0 Blood erythrocytes automated count (number/volume) 4.41 10*6/uL 4.35-5.85 Venous blood hemoglobin measurement (mass/volume) 11.3 g/dL 11.5-16.0 Blood hematocrit (volume fraction) 37 % 35-52 Automated erythrocyte mean corpuscular volume 84 [ foz_us] 80-99 Automated erythrocyte mean corpuscular h emoglobin (mass per erythrocyte) 26 pg 25-34 Automated erythrocyte mean corpuscular h emoglobin concentration measurement (mass/volume) 30 g/dL 32-36 Automated erythrocyte distribution width ratio 16. 8 % 10.0- 14.5 Automated blood platelet count (count/volume) 417 10*3/uL 130-400 Automated blood platelet mean volume measurement 9.5 [foz_us] 7.4-10.4 Automated blood neutrophils/100 leukocytes 91 % 42-75 Automated blood lymphocytes/100 leukocytes 8 % 12-44 Blood monocytes/100 leukocytes 1 % 0-12 Automated blood eosinophils/100 leukocytes 0 % 0-10 Automated blood basophils/100 leukocytes 0 % 0-10 Blood neutrophils automated count (number/volume) 10.1 10*3 1.8-7.8 Blood lymphocytes automated count (number/volume) 0.9 10*3 1.0-4.0 Blood monocytes automated count (number/volume) 0. 1 10*3 0.0-1.0 Automated eosinophil count 0.0 10*3/uL 0 .0-0.3 Automated blood basophil count (count/volume) 0.0 10*3/uL 0.0-0.1 Comprehensive metabolic panel - 03/31/20 02:40 Serum or plasma sodium measurement (moles/volume) 140 mmol/L 135-145 Serum or plasma potassium measurement (moles/volume) 4.2 mmol/L 3.6-5.0 Serum or plasma chloride measurement (moles/volume) 106 mmol/L 98-107 Carbon dioxide 20 mmol/L 21-32 Serum or plasma anion gap determination (moles/volume) 14 mmol/L 5-14 Serum or plasma urea nitrogen measurement (mass/volume ) 17 mg/dL 7-18 Serum or plasma creatinine measurement (mass/volume) 0.79 mg/dL 0.60-1.30 Serum or plasma urea nitrogen/creatinine mass ratio 22 NRG Serum or plasma creatinine measurement w ith calculation of estimated glomerular filtration rate > NRG Serum or plasma glucose measurement (mass/volume) 235 mg/dL 70-105 Serum or plasma calcium measurement (mass/volume) 9.7 mg/dL 8.5-10.1 Serum or plasma total bilirubin measurement (mass/volu me) 0.2 mg/dL 0.1-1.0 Serum or plasma alkaline phosphatase toby surement (enzymatic activity/volume) 95 U/L 40-136 Serum or plasma aspartate aminotransfera se measurement (enzymatic activity/volume) 14 U/L 5-34 Serum or plasma alanine aminotransferase measurement (enzymatic activity/volume) 15 U/L 0-55 Serum or plasma protein measurement (mass/volume) 8.5 g/dL 6.4-8.2 Serum or plasma albumin measurement (mass/volume) 3.8 g/dL 3.2-4.5 CALCIUM CORRECTED 9.9 mg/dL 8.5-10.1 Serum or plasma phosphate measurement (m ass/volume) - 03/31/20 02:40 Serum or plasma phosphate measurement (mass/volume) 2.4 mg/dL 2.3-4.7 Magnesium - 03/31/20 02:40 Magnesium 2.0 mg/dL 1.6-2.4 Manual absolute plasma cell count - 03/12 11/30 02:40 Blood monocytes/100 leukocytes 3 % NRG Manual blood segmented neutrophils/100 leukocytes 87 % NRG Blood band neutrophils/100 leukocytes 2 % NRG Manual blood lymphocytes/100 leukocytes 8 % NRG Blood anisocytosis detection by light microscopy S LIGHT NRG Blood hypersegmented neutrophils detection by light mi croscopy SLIGHT NRG Hemoglobin A1c measurement - 03/31/20 02 :40 Blood hemoglobin A1C measurement (mass/volume) 5.6 % 4.0-5.6 MEAN BLOOD GLUCOSE 114 % <=126 Complete blood count (CBC) with automate d white blood cell (WBC) differential - 04/01/20 06:41 Blood leukocytes automated count (number/volume) 14.8 10*3/uL 4.3-11.0 Blood erythrocytes automated count (number/volume) 4.21 10*6/uL 4.35-5.85 Venous blood hemoglobin measurement (mass/volume) 10.9 g/dL 11.5-16.0 Blood hematocrit (volume fraction) 35 % 35-52 Automated erythrocyte mean corpuscular volume 84 [ foz_us] 80-99 Automated erythrocyte mean corpuscular h emoglobin (mass per erythrocyte) 26 pg 25-34 Automated erythrocyte mean corpuscular h emoglobin concentration measurement (mass/volume) 31 g/dL 32-36 Automated erythrocyte distribution width ratio 16. 8 % 10.0- 14.5 Automated blood platelet count (count/volume) 446 10*3/uL 130-400 Automated blood platelet mean volume measurement 9.0 [foz_us] 7.4-10.4 Automated blood neutrophils/100 leukocytes 87 % 42-75 Automated blood lymphocytes/100 leukocytes 9 % 12-44 Blood monocytes/100 leukocytes 4 % 0-12 Automated blood eosinophils/100 leukocytes 0 % 0-10 Automated blood basophils/100 leukocytes 0 % 0-10 Blood neutrophils automated count (number/volume) 12.9 10*3 1.8-7.8 Blood lymphocytes automated count (number/volume) 1.3 10*3 1.0-4.0 Blood monocytes automated count (number/volume) 0. 6 10*3 0.0-1.0 Automated eosinophil count 0.0 10*3/uL 0 .0-0.3 Automated blood basophil count (count/volume) 0.0 10*3/uL 0.0-0.1 Comprehensive metabolic panel - 04/01/20 06:41 Serum or plasma sodium measurement (moles/volume) 138 mmol/L 135-145 Serum or plasma potassium measurement (moles/volume) 4.3 mmol/L 3.6-5.0 Serum or plasma chloride measurement (moles/volume) 106 mmol/L 98-107 Carbon dioxide 22 mmol/L 21-32 Serum or plasma anion gap determination (moles/volume) 10 mmol/L 5-14 Serum or plasma urea nitrogen measurement (mass/volume ) 15 mg/dL 7-18 Serum or plasma creatinine measurement (mass/volume) 0.67 mg/dL 0.60-1.30 Serum or plasma urea nitrogen/creatinine mass ratio 22 NRG Serum or plasma creatinine measurement w ith calculation of estimated glomerular filtration rate > NRG Serum or plasma glucose measurement (mass/volume) 149 mg/dL 70-105 Serum or plasma calcium measurement (mass/volume) 9.3 mg/dL 8.5-10.1 Serum or plasma total bilirubin measurement (mass/volu me) 0.2 mg/dL 0.1-1.0 Serum or plasma alkaline phosphatase toby surement (enzymatic activity/volume) 79 U/L 40-136 Serum or plasma aspartate aminotransfera se measurement (enzymatic activity/volume) 10 U/L 5-34 Serum or plasma alanine aminotransferase measurement (enzymatic activity/volume) 14 U/L 0-55 Serum or plasma protein measurement (mass/volume) 8.1 g/dL 6.4-8.2 Serum or plasma albumin measurement (mass/volume) 3.8 g/dL 3.2-4.5 CALCIUM CORRECTED 9.5 mg/dL 8.5-10.1 Encounters ACCT No. Visit Date/Time Discharge Status Pt. Type Provider Facility Loc./Unit Complaint [id number] 04/22/2020 09:00:00 04/22/2020 23:59: 59 [facility] [id number] 09/04/2019 16:30:00 Document Registration [id number] 02/19/2019 08:00:00 Document Registration [id number] 03/29/2020 21:55:00 05/22/2 020 12:31:00 DIS Inpatient TRINH ARNDT DO, V ia [facility] 4TH SOB [id number] 03/01/2020 12:42:00 23:59:59 CLS Outpatient LEANDER HENRIQUEZ APRN [facility] RAD FS INJURY OF RIGHT SHOULD ER [id number] 01/23/2020 06:45:00 11:27:00 DIS Inpatient MADI BELTRÁN DO [facility] 4TH NAUSEA/VOMITTING
[2020-05-29 19:18] LABS: HEMATOCRIT 37 % (35-52); HEMOGLOBIN 11.5 G/DL (11.5-16.0); MEAN CORPUSCULAR HEMOGLOBIN 26 PG (25-34); MEAN CORPUSCULAR HGB CONC 31 G/DL (32-36); MEAN CORPUSCULAR VOLUME 83 FL (80-99); MEAN PLATELET VOLUME 9.1 FL (7.4-10.4); PLATELET COUNT 369 10^3/uL (130-400); RED CELL DISTRIBUTION WIDTH 16.8 % (10.0-14.5); WHITE BLOOD COUNT 9.9 10^3/uL (4.3-11.0)
[2020-05-29 19:19] LABS: BASOPHILS % (AUTO) 0 % (0-10); EOSINOPHILS # (AUTO) 0.2 10^3/uL (0.0-0.3); EOSINOPHILS % (AUTO) 2 % (0-10); LYMPHOCYTES # (AUTO) 1.9 X 10^3 (1.0-4.0); LYMPHOCYTES % (AUTO) 19 % (12-44); MONOCYTES # (AUTO) 0.5 X 10^3 (0.0-1.0); MONOCYTES % (AUTO) 5 % (0-12); NEUTROPHILS # (AUTO) 7.2 X 10^3 (1.8-7.8); NEUTROPHILS % (AUTO) 73 % (42-75)
[2020-05-29 19:32] LABS: PROTHROMBIN TIME PATIENT 13.4 SEC (12.2-14.7)
[2020-05-29 19:34] LABS: ALANINE AMINOTRANSFERASE 13 U/L (0-55); ALBUMIN 3.8 GM/DL (3.2-4.5); ALKALINE PHOSPHATASE 93 U/L (40-136); BILIRUBIN,TOTAL 0.2 MG/DL (0.1-1.0); BUN/CREATININE RATIO 16; CALCIUM 9.2 MG/DL (8.5-10.1); CARBON DIOXIDE 23 MMOL/L (21-32); CHLORIDE 105 MMOL/L (98-107); CREATININE SERUM 0.91 MG/DL (0.60-1.30); GFR ESTIMATED > 60; GLUCOSE 108 MG/DL (70-105); POTASSIUM 3.7 MMOL/L (3.6-5.0); SODIUM 142 MMOL/L (135-145); TOTAL PROTEIN 7.4 GM/DL (6.4-8.2)
[2020-05-29 20:39] LABS: BACTERIA,URINE LARGE /HPF; BILIRUBIN,URINE 1+ (NEGATIVE); CLARITY,URINE CLOUDY; COLOR,URINE DARK YELLOW; GLUCOSE, URINE (UA) NEGATIVE (NEGATIVE); KETONES,URINE NEGATIVE (NEGATIVE); LEUKOCYTE ESTERASE ,URINE NEGATIVE (NEGATIVE); NITRITE,URINE POSITIVE (NEGATIVE); PH,URINE 5.5 (5-9); PROTEIN,URINE TRACE (NEGATIVE); RBC,URINE 0-2 /HPF
[2020-05-29 20:40] LABS: CALCIUM OXALATE CRYSTALS,UR LARGE /LPF
[2020-05-29 20:44] LABS: AMPHETAMINE SCREEN, URINE NEGATIVE (NEGATIVE); BARBITURATE SCREEN URINE NEGATIVE (NEGATIVE); BENZODIAZEPINES SCREEN URINE POSITIVE (NEGATIVE); CANNABINOID SCREEN, URINE NEGATIVE (NEGATIVE); COCAINE SCREEN URINE NEGATIVE (NEGATIVE); METHADONE STAT NEGATIVE (NEGATIVE); METHAMPHETAMINE SCREEN URINE S NEGATIVE (NEGATIVE); OPIATE SCREEN URINE NEGATIVE (NEGATIVE); OXYCODONE STAT NEGATIVE (NEGATIVE); PROPOXYPHENE STAT NEGATIVE (NEGATIVE); TRICYCLIC ANTIDEPRESSANTS SCRE POSITIVE (NEGATIVE)
[2020-05-29 20:51] VITALS: BP 147/76
== END 2020-05-29 20:55 | disposition home or self-care (01) ==
LOC: EDUNIT# 19:05 → ER FS 19:09
DX: T67.5XXA Heat exhaustion, unspecified, initial encounter (principal); F41.9 Anxiety disorder, unspecified; F32.9 Major depressive disorder, single episode, unspecified; Z88.2 Allergy status to sulfonamides; Z79.51 Long term (current) use of inhaled steroids; Z79.82 Long term (current) use of aspirin; Z79.52 Long term (current) use of systemic steroids; Z77.22 Contact with and (suspected) exposure to environmental tobacco smoke (acute) (chronic); X30.XXXA Exposure to excessive natural heat, initial encounter
CPT/HCPCS: 36415; 80053; 80306; 81000; 82550; 83880; 84484; 85025; 85610; 87077; 87088; 93005

== ENCOUNTER 2020-12-27 19:14 | Emergency (ER) | payer OTHER ==
[~2020-12-27 19:14] MED LIST changes: -MONT10TA26 PO; +MONT10TA32 PO
--- NOTE | 2020-12-27 19:49 | ED General ---
General Chief Complaint: General Problems/Pain Stated Complaint: WEAKNESS/CONFUSION Nursing Triage Note: Pt was at [facility] and had an episode of feeling lightheaded and weak. Pt sat down in a chair and her family called ems. Upon ems arrival pt was not responding to questions. Upon arrival to the ER, pt alert and oriented, answering questions appropriately Nursing Sepsis Screen: No Definite Risk History of Present Illness Date Seen by Provider: Dec 27, 2020 Time Seen by Provider: 19:15 Initial Comments 40-year-old female presents via EMS where she was seen at [facility] with decreased responsiveness. She arrives awake, alert and able to answer questions. Vital signs are stable. Patient denies passing out, states she felt lightheaded and sat down, she never lost consciousness. She denied any preceding symptoms, i.e. chest pain, palpitations or shortness of air. She denies any recent illness, fever or chills, nausea or vomiting. Patient admits to history of anxiety. Allergies and Home Medications Allergies Coded Allergies: Sulfa (Sulfonamide Antibiotics) (Verified Allergy, Unknown, 01/23/20) Home Medications Albuterol/Ipratropium 4 Gm Aero, 0 GM IH RTQID Prescribed by: TRINH ARNDT on 04/01/20 1234 Alprazolam 1 Mg Tablet, 1 MG PO TID PRN for ANXIETY, (Reported) Aripiprazole 10 Mg Tablet, 10 MG PO DAILY, (Reported) Aspirin/Acetaminophen/Caffeine 1 Each Tablet, 2 EACH PO Q6-8HR PRN for Headache, (Reported) Cyclobenzaprine HCl 5 Mg Tablet, 5 MG PO TID PRN for MUSCLE SPASMS, (Reported) Duloxetine HCl 60 Mg Capsule.dr, 60 MG PO DAILY, (Reported) Fluticasone/Salmeterol 12 Gm Hfa.aer.ad, 2 PUFF IH RTBID Prescribed by: TRINH ARNDT on 04/01/20 1234 Gabapentin 300 Mg Capsule, 300 MG PO DAILY, (Reported) Gabapentin 300 Mg Capsule, 300-600 MG PO HS PRN for NERVE PAIN, (Reported) Levothyroxine Sodium 137 Mcg Tablet, 137 MCG PO DAILY, (Reported) Loratadine 10 Mg Tablet, 10 MG PO DAILY Prescribed by: TRINH ARNDT on 04/01/20 1234 Losartan Potassium 50 Mg Tablet, 50 MG PO DAILY Prescribed by: TRINH ARNDT on 04/01/20 1234 Montelukast Sodium 10 Mg Tablet, 10 MG PO HS Prescribed by: TRINH ARNDT on 04/01/20 1234 Naproxen 500 Mg Tablet, 500 MG PO Q12H PRN for PAIN-MILD (1-4), (Reported) Ondansetron 4 Mg Tab.rapdis, 4 MG PO Q6H PRN for NAUSEA/VOMITING-1ST LINE Prescribed by: DANIEL KHALIL on 01/25/20 1235 Prednisone 10 Mg Tab.ds.pk, 10 MG PO DAILY 3 pills once daily for 2 days then 2 pills daily for 2 days Prescribed by: TRINH ARNDT on 04/01/20 1234 Tramadol HCl 50 Mg Tablet, 50 MG PO TID PRN for PAIN-MODERATE (5-7), (Reported) Patient Home Medication List Home Medication List Reviewed: Yes Review of Systems Review of Systems Constitutional: see HPI, malaise, weakness (resolved) EENTM: no symptoms reported Respiratory: no symptoms reported; No cough, No short of breath Cardiovascular: no symptoms reported; No chest pain, No edema, No palpitations, No syncope Gastrointestinal: No abdominal pain, No constipation, No diarrhea, No loss of appetite, No nausea, No vomiting Musculoskeletal: No back pain, No joint pain Skin: No change in color, No pruritus, No rash Psychiatric/Neurological: Anxiety; Denies Depressed, Denies Numbness, Denies Paresthesia, Denies Seizure, Denies Tremors; Weakness (generalized, resolved) Past Owopnmy-Vvmkqq-Mkfxti Hx Past Med/Social Hx: Reviewed Nursing Past Med/Soc Hx Patient Social History Alcohol Use: Denies Use Smoking Status: Current Everyday Smoker Type Used: Cigarettes 2nd Hand Smoke Exposure: Yes Recent Infectious Disease Expo: No Recent Hopitalizations: No Immunizations Up To Date Date of Influenza Vaccine: Nov 24, 2019 Seasonal Allergies Seasonal Allergies: No Past Medical History Surgeries: Yes Section, Gallbladder Respiratory: No Cardiac: No Neurological: No Genitourinary: No Gastrointestinal: No Musculoskeletal: No Endocrine: No HEENT: No Cancer: No Psychosocial: Yes Anxiety, Depression Integumentary: No Blood Disorders: No Family Medical History No Pertinent Family Hx Physical Exam Vital Signs Vital Signs - First Documented 12/27/20 19:15 Temp 36.5 Pulse 95 Resp 18 B/P (MAP) 146/90 (108) Pulse Ox 99 O2 Delivery Room Air Capillary Refill : Less Than 3 Seconds Height, Weight, BMI Height: '" Weight: lbs. oz. kg; 57.00 BMI Method: General Appearance: No Apparent Distress, WD/WN Eyes: Bilateral Eye Normal Inspection, Bilateral Eye PERRL, Bilateral Eye EOMI HEENT: PERRL/EOMI, Normal ENT Inspection Neck: Normal Inspection, Non Tender, Supple Respiratory: Chest Non Tender, Lungs Clear, Normal Breath Sounds, No Accessory Muscle Use, No Respiratory Distress Cardiovascular: Regular Rate, Rhythm, No Edema, No Gallop Gastrointestinal: Non Tender, Soft Extremity: Normal Capillary Refill, Normal Inspection, Normal Range of Motion, Non Tender, No Calf Tenderness Neurologic/Psychiatric: Alert, Oriented x3, No Motor/Sensory Deficits, Normal Mood/Affect, wrap turner II-XII Norm as Tested Skin: Normal Color, Warm/Dry Progress/Results/Core Measures Suspected Sepsis Recent Fever Within 48 Hours: No Infection Criteria Present: None New/Unexplained Altered Menta: No Sepsis Screen: No Definite Risk SIRS Temperature: Pulse: 95 Respiratory Rate: 18 Laboratory Tests 12/27/20 19:16: White Blood Count 8.1 Blood Pressure 146 /90 Mean: 108 Laboratory Tests 12/27/20 19:16: Creatinine 0.71, Platelet Count 331, Total Bilirubin 0.2 Results/Orders Lab Results Laboratory Tests Test 12/27/20 19:16 12/27/20 20:50 Range/Units White Blood Count 8.1 4.3-11.0 10^3/uL Red Blood Count 4.59 4.35-5.85 10^6/uL Hemoglobin 11.9 11.5-16.0 G/DL Hematocrit 39 35-52 % Mean Corpuscular Volume 84 80-99 FL Mean Corpuscular Hemoglobin 26 25-34 PG Mean Corpuscular Hemoglobin Concent 31 L 32-36 G/DL Red Cell Distribution Width 16.0 H 10.0-14.5 % Platelet Count 331 130-400 10^3/uL Mean Platelet Volume 9.5 7.4-10.4 FL Immature Granulocyte % (Auto) 1 % Neutrophils (%) (Auto) 68 42-75 % Lymphocytes (%) (Auto) 23 12-44 % Monocytes (%) (Auto) 5 0-12 % Eosinophils (%) (Auto) 4 0-10 % Basophils (%) (Auto) 0 0-10 % Neutrophils # (Auto) 5.5 1.8-7.8 X 10^3 Lymphocytes # (Auto) 1.9 1.0-4.0 X 10^3 Monocytes # (Auto) 0.4 0.0-1.0 X 10^3 Eosinophils # (Auto) 0.3 0.0-0.3 10^3/uL Basophils # (Auto) 0.0 0.0-0.1 10^3/uL Immature Granulocyte # (Auto) 0.0 0.0-0.1 10^3/uL Sodium Level 140 135-145 MMOL/L Potassium Level 3.9 3.6-5.0 MMOL/L Chloride Level 105 98-107 MMOL/L Carbon Dioxide Level 25 21-32 MMOL/L Anion Gap 10 5-14 MMOL/L Blood Urea Nitrogen 19 H 7-18 MG/DL Creatinine 0.71 0.60-1.30 MG/DL Estimat Glomerular Filtration Rate > 60 BUN/Creatinine Ratio 27 Glucose Level 99 70-105 MG/DL Calcium Level 9.4 8.5-10.1 MG/DL Corrected Calcium 9.6 8.5-10.1 MG/DL Total Bilirubin 0.2 0.1-1.0 MG/DL Aspartate Amino Transf (AST/SGOT) 11 5-34 U/L Alanine Aminotransferase (ALT/SGPT) 5 0-55 U/L Alkaline Phosphatase 98 40-136 U/L Total Protein 7.6 6.4-8.2 GM/DL Albumin 3.7 3.2-4.5 GM/DL Urine Color YELLOW Urine Clarity CLEAR Urine pH 7.0 5-9 Urine Specific Constantia 1.020 1.016-1.022 Urine Protein NEGATIVE NEGATIVE Urine Glucose (UA) NEGATIVE NEGATIVE Urine Ketones NEGATIVE NEGATIVE Urine Nitrite POSITIVE H NEGATIVE Urine Bilirubin NEGATIVE NEGATIVE Urine Urobilinogen 0.2 < = 1.0 MG/DL Urine Leukocyte Esterase NEGATIVE NEGATIVE Urine RBC (Auto) NEGATIVE NEGATIVE Urine RBC NONE /HPF Urine WBC 0-2 /HPF Urine Squamous Epithelial Cells 5-10 /HPF Urine Crystals PRESENT H /LPF Urine Amorphous Sediment MOD JUAN URATES H /LPF Urine Bacteria FEW H /HPF Urine Casts NONE /LPF Urine Mucus MODERATE H /LPF Urine Culture Indicated YES My Orders Orders - ROVENSTINE,DIANE L DO Ed Iv/Invasive Line Start (12/27/20 19:42) Chest 1 View Ap/Pa Only (12/27/20 19:42) Ekg Tracing (12/27/20 19:42) Cbc With Automated Diff (12/27/20 19:42) Comprehensive Metabolic Panel (12/27/20 19:42) Urinalysis (12/27/20 19:42) Ns Iv 1000 Ml (Sodium Chloride 0.9%) (12/27/20 20:30) Urine Culture (12/27/20 20:50) Vital Signs/I&O 12/27/20 21:46 Pulse 96 Resp 18 B/P (MAP) 152/93 Pulse Ox 97 O2 Delivery Room Air 12/28/20 00:00 Intake Total 1000 ml Balance 1000 ml Capillary Refill : Less Than 3 Seconds Blood Pressure Mean: 108 Progress Note : Progress Note Patient spontaneously feels much better after arrival. Given 1 liter NS prior to departure. Appears well with normal vitals. Normal labs and ECG. Advised f/u w PCP this week and to ER for any further syncopal or near-syncopal events ECG Initial ECG Impression Date: Dec 27, 2020 Initial ECG Impression Time: 20:00 Initial ECG Rate: 90 Initial ECG Rhythm: Normal Sinus Initial ECG Intervals: Normal Initial ECG Impression: Normal Departure Impression Primary Impression: Pre-syncope Disposition: 01 HOME, SELF-CARE Condition: Improved Departure-Patient Inst. Decision time for Depature: 20:28 Referrals: [facility] (PCP/Family) Primary Care Physician Patient Instructions: Near Fainting (DC) Add. Discharge Instructions: Follow up with your PCP in 2 to 3 days for re-evaluation. Return to the nearest ER sooner if having further similar episodes All discharge instructions reviewed with patient and/or family. Voiced understanding. DIANE DELEON DO Dec 27, 2020 19:49
[2020-12-27 19:52] LABS: HEMATOCRIT 39 % (35-52); HEMOGLOBIN 11.9 G/DL (11.5-16.0); LYMPHOCYTES % (AUTO) 23 % (12-44); MEAN CORPUSCULAR HEMOGLOBIN 26 PG (25-34); MEAN CORPUSCULAR HGB CONC 31 G/DL (32-36); MEAN CORPUSCULAR VOLUME 84 FL (80-99); MEAN PLATELET VOLUME 9.5 FL (7.4-10.4); NEUTROPHILS % (AUTO) 68 % (42-75); PLATELET COUNT 331 10^3/uL (130-400); WHITE BLOOD COUNT 8.1 10^3/uL (4.3-11.0)
[2020-12-27 19:53] LABS: BASOPHILS % (AUTO) 0 % (0-10); EOSINOPHILS # (AUTO) 0.3 10^3/uL (0.0-0.3); EOSINOPHILS % (AUTO) 4 % (0-10); LYMPHOCYTES # (AUTO) 1.9 X 10^3 (1.0-4.0); MONOCYTES # (AUTO) 0.4 X 10^3 (0.0-1.0); MONOCYTES % (AUTO) 5 % (0-12); NEUTROPHILS # (AUTO) 5.5 X 10^3 (1.8-7.8)
[2020-12-27 20:05] LABS: BILIRUBIN,TOTAL 0.2 MG/DL (0.1-1.0); BUN/CREATININE RATIO 27; CALCIUM 9.4 MG/DL (8.5-10.1); CARBON DIOXIDE 25 MMOL/L (21-32); CHLORIDE 105 MMOL/L (98-107); CREATININE SERUM 0.71 MG/DL (0.60-1.30); GFR ESTIMATED > 60; GLUCOSE 99 MG/DL (70-105); POTASSIUM 3.9 MMOL/L (3.6-5.0); SODIUM 140 MMOL/L (135-145)
[2020-12-27 20:06] LABS: ALANINE AMINOTRANSFERASE 5 U/L (0-55); ALBUMIN 3.7 GM/DL (3.2-4.5); ALKALINE PHOSPHATASE 98 U/L (40-136); TOTAL PROTEIN 7.6 GM/DL (6.4-8.2)
--- NOTE | 2020-12-27 20:07 | Diagnostic Imaging Report ---
Clinical Indication: Patient with syncope. Exam: Portable chest x-ray upright view. Comparisons: Chest x-ray dated 03/31/2020. Findings: Lungs/pleura: Low lung volumes are seen. Lungs are clear. There is no pneumothorax. There is no pleural effusion. Mediastinum: Unremarkable. Pulmonary vasculature: Unremarkable. Heart: Unremarkable. Bones/extrathoracic soft tissue: Unremarkable. Impression: Low lung volumes are noted. There is no radiographic evidence of acute cardiopulmonary process. Dictated by: Dictated on workstation # [id number]
[2020-12-27] MEDS ORDERED: NS IV 1000 ML 1,000 ML IV SCH (20:30)
[2020-12-27 21:13] LABS: COLOR,URINE YELLOW
[2020-12-27 21:14] LABS: AMORPHOUS SEDIMENT,UR MOD AMOR URATES /LPF; BILIRUBIN,URINE NEGATIVE (NEGATIVE); CLARITY,URINE CLEAR; GLUCOSE, URINE (UA) NEGATIVE (NEGATIVE); KETONES,URINE NEGATIVE (NEGATIVE); LEUKOCYTE ESTERASE ,URINE NEGATIVE (NEGATIVE); NITRITE,URINE POSITIVE (NEGATIVE); PROTEIN,URINE NEGATIVE (NEGATIVE); WBC,URINE 0-2 /HPF
[2020-12-27 21:16] LABS: BACTERIA,URINE FEW /HPF
[2020-12-27 21:46] VITALS: BP 152/93
== END 2020-12-27 21:46 | disposition home or self-care (01) ==
LOC: EDUNIT# 19:14 → ER FS 19:14
DX: R55 Syncope and collapse (principal); F32.9 Major depressive disorder, single episode, unspecified; F41.9 Anxiety disorder, unspecified; F17.210 Nicotine dependence, cigarettes, uncomplicated; Z88.2 Allergy status to sulfonamides; Z79.52 Long term (current) use of systemic steroids; Z79.82 Long term (current) use of aspirin
CPT/HCPCS: 36415; 71045; 80053; 81000; 85025; 87088; 93005

== ENCOUNTER 2021-09-03 10:51 | Emergency (ER) | payer OTHER ==
[~2021-09-03] VITALS: Ht 167.7 cm; Wt 170.6 kg
--- OUTSIDE RECORDS SUMMARY | 2021-09-03 10:55 | XMS REPORT | Clinical Summary ---
Author Author [facility] Organization [facility] Address Unknown Phone Unavailable Care Team Providers Care Clip Loading Machine Feeder Name Role Phone Kevin Youngblood MD PCP Unavailable Source Comments Some departments are not documenting in the electronic medical record. If you d o not see the information that you expected, contact Release of Information in [facility] [employer] Information Management department at [phone] for further assistan ce in locating additional records.[facility] Allergies Comments Active Allergy Reactions Severity Noted Date Sulfa (Sulfonamide RASH Medium 02/10/2018 Antibiotics) Medications End Date Status Medication Sig Dispensed Refills Start Date Active duloxetine DR (CYMBALTA) Take 60 mg by 0 60 mg capsule mouth daily. Active pregabalin (LYRICA) 75 mg Take 75 mg by 0 capsule mouth three times daily. Active ALPRAZolam (XANAX) 0.5 mg Take 0.5 mg 0 tablet by mouth at bedtime as needed for Anxiety. Active levothyroxine (SYNTHROID) Take 125 mcg 0 125 mcg tablet by mouth daily 30 minutes before breakfast. Active ferrous sulfate (FEOSOL, Take 325 mg 0 FEROSUL) 325 mg (65 mg by mouth iron) tablet daily. Take on an empty stomach at least 1 hour before or 2 hours after food. Active HYDROcodone/acetaminophen Take 1 tablet 0 (NORCO) 5/325 mg tablet by mouth every 12 hours as needed for Pain Active traMADol (ULTRAM) 50 mg Take 50 mg by 0 tablet mouth every 6 hours as needed for Pain. Active cyclobenzaprine Take 5 mg by 0 (FLEXERIL) 5 mg tablet mouth three times daily as needed for Muscle Cramps. Active naproxen (NAPROSYN) 500 Take 500 mg 0 mg tablet by mouth twice daily with meals. Take with food. Active loratadine (CLARITIN) 10 Take 10 mg by 0 mg tablet mouth every morning. Active furosemide (LASIX) 40 mg Take 40 mg by 0 tablet mouth twice weekly. Active hydrOXYzine (ATARAX) 50 Take 50 mg by 0 mg tablet mouth at bedtime as needed for Itching. Active lisinopril-hydrochlorothi Take 1 tablet 0 azide (PRINZIDE, by mouth ZESTORETIC) 20-12.5 mg every tablet morning. Active famotidine (PEPCID) 20 mg Take 20 mg by 0 tablet mouth twice daily. Active Problems Problem Noted Date Incisional hernia, without obstruction or gangrene 0 02/13/2018 Morbid obesity with BMI of 50.0-59.9, adult 02/14/20 18 Surgical History Surgery Date Site/Laterality Comments SECTION LAP CHOLECYSTECTOMY 11/11/2015 - 11/10/2016 HYSTERECTOMY 11/11/2016 - 11/10/2017 Medical History Medical History Date Comments Fracture of lower leg 2010 Left LLE and ank le with hardware placement GERD (gastroesophageal reflux disease) Anxiety Depression Hypothyroidism Kidney stone 2015 Left Post-operative nausea and vomiting Social History Date Tobacco Use Types Packs/Day Years Used Current Every Day Smoker Smokeless Tobacco: Never Used Comments Alcohol Use Standard Drinks/Week sometimes Yes 1 (1 standard drink = 0.6 o z pure alcohol) Alcohol Habits Answer Date Recorded How often do you have a drink containing alcohol? No t asked How many drinks containing alcohol do you have on No t asked a typical day when you are drinking? How often do you have six or more drinks on one Not asked occasion? Comment: sometimes 02/12/2018 Sex Assigned at Date Recorded Not on file Last Filed Vital Signs Reading Time Taken Comments Vital Sign 148/98 02/12/2018 11:13 AM CDT Blood Pressure 121 02/12/2018 11:13 AM CDT Pulse 36.7 C (98.1 F) 02/12/2018 11:13 AM CDT Temperature 20 02/12/2018 11:13 AM CDT Respiratory Rate - - Oxygen Saturation - - Inhaled Oxygen Concentration 152.3 kg (335 lb 12.8 oz) 02/12/2018 11:13 AM CDT Weight 167.6 cm (5' 6") 02/12/2018 11:13 AM CDT Height 54.2 02/12/2018 11:13 AM CDT Body Mass Index Plan of Treatment Health Maintenance Due Date Last Done Comments HIV SCREENING 02/17/1995 DTAP/TDAP VACCINES (1 - 02/17/1998 Tdap) HEPATITIS C SCREENING 02/17/1998 PHYSICAL (COMPREHENSIVE) 02/17/1998 EXAM CERVICAL CANCER SCREENING 02/17/2001 BREAST CANCER SCREENING 2020 INFLUENZA VACCINE 06/11/2021 Results Not on filefrom Last 3 Months Insurance Type Payer Benefit Subscriber ID Effective Phone Address Plan / Dates Group [facility] [id number] 2017-P [employer] [phone] Advance Directives Patient Senior Corporate Accountant Explanation Type Date Recorded Advance Directive/DPOA
[2021-09-03] MEDS ORDERED: NS IV ONE (11:00)
[2021-09-03 11:12] LABS: WHITE BLOOD COUNT 8.3 10^3/uL (4.3-11.0)
[2021-09-03 11:13] LABS: BASOPHILS % (AUTO) 0 % (0-10); EOSINOPHILS % (AUTO) 0 % (0-10); HEMATOCRIT 38 % (35-52); HEMOGLOBIN 11.9 g/dL (11.5-16.0); LYMPHOCYTES # (AUTO) 0.7 X 10^3 (1.0-4.0); LYMPHOCYTES % (AUTO) 9 % (12-44); MEAN CORPUSCULAR HEMOGLOBIN 26 pg (25-34); MEAN CORPUSCULAR HGB CONC 31 g/dL (32-36); MEAN CORPUSCULAR VOLUME 84 fL (80-99); MEAN PLATELET VOLUME 9.3 fL (9.0-12.2); MONOCYTES # (AUTO) 0.6 X 10^3 (0.0-1.0); MONOCYTES % (AUTO) 7 % (0-12); NEUTROPHILS % (AUTO) 84 % (42-75); PLATELET COUNT 263 10^3/uL (130-400)
[2021-09-03 11:14] LABS: BACTERIA,URINE FEW /HPF; BILIRUBIN,URINE 1+ (NEGATIVE); CLARITY,URINE CLOUDY; COLOR,URINE DARK YELLOW; GLUCOSE, URINE (UA) NEGATIVE (NEGATIVE); KETONES,URINE NEGATIVE (NEGATIVE); LEUKOCYTE ESTERASE ,URINE 2+ (NEGATIVE); NITRITE,URINE NEGATIVE (NEGATIVE); PROTEIN,URINE 1+ (NEGATIVE); WBC,URINE TNTC /HPF
[2021-09-03] MEDS ORDERED: ALPRAZolam 0.25 MG (XANAX) TAB PO ONE (11:15)
--- NOTE | 2021-09-03 11:23 | Diagnostic Imaging Report ---
INDICATION: Short of air, sepsis, fever. EXAMINATION: Chest 09/03/2021 COMPARISON: 12/27/2020 FINDINGS: Single view chest There are low lung volumes. There is bibasilar atelectasis with an infiltrate at right base not excluded. There are no effusions. There is no pneumothorax. Heart unremarkable. Pulmonary vasculature normal. No acute osseous abnormality. IMPRESSION: 1. Bibasilar atelectasis with early infiltrate at the right base not excluded due to the low lung volumes and patient body habitus. Dictated by: Dictated on workstation # [id number]
[2021-09-03 11:38] LABS: CALCIUM 8.8 MG/DL (8.5-10.1); CREATININE SERUM 0.84 MG/DL (0.60-1.30); POTASSIUM 3.7 MMOL/L (3.6-5.0)
[2021-09-03 11:39] LABS: ALBUMIN 3.8 GM/DL (3.2-4.5); TOTAL PROTEIN 8.3 GM/DL (6.4-8.2)
[2021-09-03] MEDS ORDERED: CEFTRIAXONE IV ONE (12:00)
[2021-09-03] MEDS ORDERED: AZITHROMYCIN 250 MG TAB (ZITHROMAX) PO ONE (12:00)
[2021-09-03] MEDS ORDERED: WATER IV ONE (12:00)
[2021-09-03] MEDS ORDERED: NS IV 1000 ML 1,000 ML ONE (12:15)
[2021-09-03] MEDS ORDERED: NS IV 1000 ML 3,000 ML ONE (12:51)
--- NOTE | 2021-09-03 14:06 | ED Respiratory ---
General Chief Complaint: Respiratory Problems Stated Complaint: SOB Nursing Triage Note: PT TO ROOM FS06 [facility]IA [facility] FROM [facility] WALK IN FS WITH C/O SOB. PT O2 IS 94% ON RA UPON ARRIVAL. Source: patient Exam Limitations: no limitations History of Present Illness Date Seen by Provider: Sep 03, 2021 Time Seen by Provider: 10:55 Initial Comments Patient is a 41-year-old female who presents with intermittent fever since yesterday, generalized body aches, shortness of breath, sweats and chest pain with palpitations. Patient does have history of anxiety. She denies headache, neck stiffness, sore throat, difficulties swallowing and cough. No urinary frequency urgency or burning. No leg swelling redness or history of cellulitis. No other acute symptoms or complaints. Patient initially presented to urgent care. She was was found to be febrile, tachycardic and generally weak requiring a two-person assist to walk into the room. Covid screen was performed which was negative and EMS was contacted for transport. No other acute symptoms or complaints. History is by the patient. Timing/Duration: just prior to arrival Severity: moderate Prior Episodes/Possible Cause: other Modifying Factors: Improves With Other Allergies and Home Medications Allergies Coded Allergies: Sulfa (Sulfonamide Antibiotics) (Verified Allergy, Unknown, 01/23/20) Patient Home Medication List Home Medication List Reviewed: Yes Albuterol/Ipratropium (Combivent Respimat Inhal [place]) 4 Gm Aero, 0 GM IH RTQID Prescribed by: TRINH ARNDT on 04/01/20 1234 Alprazolam (Xanax) 1 Mg Tablet, 1 MG PO TID PRN for ANXIETY, (Reported) Entered as Reported by: MICHELLE DIETRICH on 01/23/20 0934 Aripiprazole (Abilify) 10 Mg Tablet, 10 MG PO DAILY, (Reported) Entered as Reported by: ALAN FIELDS on 01/23/20 0917 Aspirin/Acetaminophen/Caffeine (Excedrin Migraine Caplet) 1 Each Tablet, 2 EACH PO Q6-8HR PRN for Headache, (Reported) Entered as Reported by: MONIQUE KIRK on 03/30/20 1058 Cyclobenzaprine HCl (Cyclobenzaprine HCl) 5 Mg Tablet, 5 MG PO TID PRN for MUSCLE SPASMS, (Reported) Entered as Reported by: MONIQUE KIRK on 03/30/20 1055 Duloxetine HCl (Cymbalta) 60 Mg Capsule.dr, 60 MG PO DAILY, (Reported) Entered as Reported by: MICHELLE DIETRICH on 01/23/20 09 Fluticasone/Salmeterol (Advair Hfa 115-21 Mcg Inhaler) 12 Gm Hfa.aer.ad, 2 PUFF IH RTBID Prescribed by: TRINH ARNDT on 04/01/20 123 Gabapentin (Neurontin) 300 Mg Capsule, 300 MG PO DAILY, (Reported) Entered as Reported by: MONIQUE KIRK on 03/30/20 105 Gabapentin (Neurontin) 300 Mg Capsule, 300-600 MG PO HS PRN for NERVE PAIN, (Reported) Entered as Reported by: MONIQUE KIRK on 03/30/20 105 Levothyroxine Sodium (Levothyroxine Sodium) 137 Mcg Tablet, 137 MCG PO DAILY, (Reported) Entered as Reported by: MICHELLE DIETRICH on 01/23/20930 Loratadine (Loratadine) 10 Mg Tablet, 10 MG PO DAILY Prescribed by: TRINH ARNDT on 04/01/20 123 Losartan Potassium (Losartan Potassium) 50 Mg Tablet, 50 MG PO DAILY Prescribed by: TRINH ARNDT on 04/01/20 123 Montelukast Sodium (Montelukast Sodium) 10 Mg Tablet, 10 MG PO HS Prescribed by: TRINH ARNDT on 04/01/20 1234 Naproxen (Naproxen) 500 Mg Tablet, 500 MG PO Q12H PRN for PAIN-MILD (1-4), (Reported) Entered as Reported by: MONIQUE KIRK on 03/30/20 1058 Ondansetron (Ondansetron Odt) 4 Mg Tab.rapdis, 4 MG PO Q6H PRN for NAUSEA/VOMITING-1ST LINE Prescribed by: DANIEL KHALIL on 01/25/20 1235 Prednisone (Prednisone) 10 Mg Tab.ds.pk, 10 MG PO DAILY Prescribed by: TRINH ARNDT on 04/01/20 1234 Tramadol HCl (Tramadol HCl) 50 Mg Tablet, 50 MG PO TID PRN for PAIN-MODERATE (5- 7), (Reported) Entered as Reported by: MONIQUE KIRK on 03/30/20 105 Review of Systems Review of Systems Constitutional: see HPI EENTM: see HPI Respiratory: see HPI Cardiovascular: see HPI Gastrointestinal: see HPI Genitourinary: see HPI Musculoskeletal: see HPI Skin: see HPI Psychiatric/Neurological: See HPI Hematologic/Lymphatic: No Symptoms Reported Immunological/Allergic: no symptoms reported All Other Systems Reviewed Negative Unless Noted: Yes Past Hwiciya-Xrgubi-Yefgjo Hx Patient Social History Tobacco Use?: Yes Smoking Status: Former Smoker Smokeless Tobacco Frequency: Never a User Use of E-Cig and/or Vaping Kg: Never a User Substance use?: No Alcohol Use?: Yes Alcohol Frequency: Once in a while Pt feels they are or have been: No Immunizations Up To Date First/Initial COVID19 Vaccinat: 05/2021 Second COVID19 Vaccination [place]: 06/2021 Seasonal Allergies Seasonal Allergies: No Past Medical History Surgeries: Yes Section, Gallbladder Respiratory: No Cardiac: No Neurological: No Genitourinary: No Gastrointestinal: No Musculoskeletal: No Endocrine: No HEENT: No Cancer: No Psychosocial: Yes Anxiety, Depression Integumentary: No Blood Disorders: No Family Medical History No Pertinent Family Hx Physical Exam Vital Signs - First Documented 09/03/21 10:51 Temp 39.0 Pulse 128 Resp 19 B/P (MAP) 196/95 (128) O2 Delivery Room Air Capillary Refill : Less Than 3 Seconds Height: '" Weight: lbs. oz. kg; 60.00 BMI Method: General Appearance: other (Generally weak and fatigued appearing.) Eyes: Bilateral Eye Normal Inspection, Bilateral Eye PERRL, Bilateral Eye EOMI HEENT: PERRL/EOMI, normal ENT inspection, pharynx normal Neck: non-tender, full range of motion, supple Respiratory: chest non-tender, decreased breath sounds Cardiovascular: tachycardia, other Gastrointestinal: non tender, soft Extremities: no pedal edema Neurologic/Psychiatric: car conditioner II-XII nml as tested, no motor/sensory deficits, oriented x 3 Lymphatic: no adenopathy Focused Exam Sepsis Stage: Sepsis Possible Source: Unknown Lactate Level 09/03/21 10:55: Lactic Acid Level 1.36 Time of Focused Exam: 11:00 Respiratory: Lungs Clear Cardiovascular: Tachycardia Capillary Refill: Less Than 3 Seconds Peripheral Pulses: 3+ Radial Pulses (R), 3+ Radial Pulses (L) Skin: No rash; other (Flushed, diaphoretic) Lactic Acid Level Laboratory Tests Test 09/03/21 10:55 Lactic Acid Level 1.36 MMOL/L (0.50-2.00) Progress/Results/Core Measures Suspected Sepsis SIRS Temperature: Pulse: 128 Respiratory Rate: 19 Laboratory Tests 09/03/21 10:55: White Blood Count 8.3 Blood Pressure 196 /95 Mean: 128 09/03/21 10:55: Lactic Acid Level 1.36 Laboratory Tests 09/03/21 10:55: Creatinine 0.84, Platelet Count 263, Total Bilirubin 1.0 Results/Orders Lab Results Laboratory Tests Test 09/03/21 10:55 09/03/21 11:01 Range/Units White Blood Count 8.3 4.3-11.0 10^3/uL Red Blood Count 4.58 3.80-5.11 10^6/uL Hemoglobin 11.9 11.5-16.0 g/dL Hematocrit 38 35-52 % Mean Corpuscular Volume 84 80-99 fL Mean Corpuscular Hemoglobin 26 25-34 pg Mean Corpuscular Hemoglobin Concent 31 L 32-36 g/dL Red Cell Distribution Width 18.0 H 10.0-14.5 % Platelet Count 263 130-400 10^3/uL Mean Platelet Volume 9.3 9.0-12.2 fL Immature Granulocyte % (Auto) 1 % Neutrophils (%) (Auto) 84 H 42-75 % Lymphocytes (%) (Auto) 9 L 12-44 % Monocytes (%) (Auto) 7 0-12 % Eosinophils (%) (Auto) 0 0-10 % Basophils (%) (Auto) 0 0-10 % Neutrophils # (Auto) 7.0 1.8-7.8 X 10^3 Lymphocytes # (Auto) 0.7 L 1.0-4.0 X 10^3 Monocytes # (Auto) 0.6 0.0-1.0 X 10^3 Eosinophils # (Auto) 0.0 0.0-0.3 10^3/uL Basophils # (Auto) 0.0 0.0-0.1 10^3/uL Immature Granulocyte # (Auto) 0.1 0.0-0.1 10^3/uL Sodium Level 134 L 135-145 MMOL/L Potassium Level 3.7 3.6-5.0 MMOL/L Chloride Level 99 98-107 MMOL/L Carbon Dioxide Level 24 21-32 MMOL/L Anion Gap 11 5-14 MMOL/L Blood Urea Nitrogen 10 7-18 MG/DL Creatinine 0.84 0.60-1.30 MG/DL Estimat Glomerular Filtration Rate 75 BUN/Creatinine Ratio 12 Glucose Level 115 H 70-105 MG/DL Lactic Acid Level 1.36 0.50-2.00 MMOL/L Calcium Level 8.8 8.5-10.1 MG/DL Corrected Calcium 9.0 8.5-10.1 MG/DL Total Bilirubin 1.0 0.1-1.0 MG/DL Aspartate Amino Transf (AST/SGOT) 24 5-34 U/L Alanine Aminotransferase (ALT/SGPT) 15 0-55 U/L Alkaline Phosphatase 98 40-136 U/L Total Protein 8.3 H 6.4-8.2 GM/DL Albumin 3.8 3.2-4.5 GM/DL Urine Color DARK YELLOW Urine Clarity CLOUDY Urine pH 8.0 5-9 Urine Specific [place] 1.010 L 1.016-1.022 Urine Protein 1+ H NEGATIVE Urine Glucose (UA) NEGATIVE NEGATIVE Urine Ketones NEGATIVE NEGATIVE Urine Nitrite NEGATIVE NEGATIVE Urine Bilirubin 1+ H NEGATIVE Urine Urobilinogen >=8.0 < = 1.0 MG/DL Urine Leukocyte Esterase 2+ H NEGATIVE Urine RBC (Auto) 1+ H NEGATIVE Urine RBC NONE /HPF Urine WBC TNTC H /HPF Urine Squamous Epithelial Cells 5-10 /HPF Urine Crystals NONE /LPF Urine Bacteria FEW H /HPF Urine Casts NONE /LPF Urine Mucus NEGATIVE /LPF Urine Culture Indicated NO My Orders Orders - DESIREEALEJA DO Cbc With Automated Diff (09/03/21 10:59) Comprehensive Metabolic Panel (09/03/21 10:59) Blood Culture (09/03/21 10:59) Urinalysis (09/03/21 10:59) Urine Culture (09/03/21 10:59) Chest 1 View Ap/Pa Only (09/03/21 10:59) Ed Iv/Invasive Line Start (09/03/21 10:59) Ed Iv/Invasive Line Start (09/03/21 10:59) Lactic Acid Analyzer (09/03/21 10:59) Ns Iv 1000 Ml (Sodium Chloride 0.9%) (09/03/21 11:00) Alprazolam Tablet (Xanax Tablet) (09/03/21 11:15) Ceftriaxone (Rocephin) (09/03/21 12:00) Azithromycin Tablet (Zithromax Tablet) (09/03/21 12:00) Ns Iv 1000 Ml (Sodium Chloride 0.9%) (09/03/21 12:15) Ns Iv 1000 Ml (Sodium Chloride 0.9%) (09/03/21 12:51) Medications Given in ED Current Medications Medications Dose Ordered Sig/Wilner Route Start Time Stop Time Status Last Admin Dose Admin Alprazolam 0.5 mg ONCE ONCE PO 09/03/21 11:15 09/03/21 11:16 DC 09/03/21 11:10 0.5 MG Azithromycin 500 mg ONCE ONCE PO 09/03/21 12:00 09/03/21 12:01 DC 09/03/21 12:09 500 MG Ceftriaxone Sodium 2000 mg/ Sterile Water 10 ml @ 200 mls/hr ONCE ONCE IV 09/03/21 12:00 09/03/21 12:02 DC 09/03/21 12:09 200 MLS/HR Sodium Chloride 4,740 ml @ 4,740 mls/hr ONCE ONCE IV 09/03/21 11:00 09/03/21 12:00 DC 09/03/21 11:06 4,740 MLS/HR Vital Signs/I&O 09/03/21 09/03/21 10:51 10:51 Temp 39.0 Pulse 128 Resp 19 B/P (MAP) 196/95 (128) O2 Delivery Room Air Room Air Capillary Refill : Less Than 3 Seconds Blood Pressure Mean: 128 Departure Communication (Admissions) Chest x-ray: Evolving pulmonary infiltrate Patient persistent tachycardia with fever and stable blood pressure. She is also clinically anxious. Chest pain resolved with Xanax. White blood cell count and serum lactate normal. She has early pneumonia on chest x-ray. IV antibiotics given. Patient is ambulatory with steady gait without respiratory distress or hypoxia. Admission offered but declined. Patient requests discharge and preferred to follow-up with her PCP. Return precautions reviewed. Patient verbalizes understanding and agreement and will be discharged home per her request. Impression Primary Impression: Pneumonia Additional Impression: Anxiety state Disposition: 01 HOME, SELF-CARE Condition: Stable Departure-Patient Inst. Decision time for Depature: 14:09 Referrals: [facility] (PCP/Family) Primary Care Physician Patient Instructions: Pneumonia, Adult ED Add. Discharge Instructions: You were evaluated in the emergency department for fever, chest pain body aches. Chest x-ray was performed and reveals pneumonia. IV fluids and antibiotics were given. Please go home and rest, continue ibuprofen for fever and take antibiotics as directed. Follow-up with your PCP in 2 to 3 days for reevaluation. Return to the ED if new or worsening symptoms. All discharge instructions reviewed with patient and/or family. Voiced understanding. Scripts Doxycycline Hyclate (Doxycycline Hyclate) 100 Mg Tablet 100 MG PO BID, #20 TAB 0 Refills Prov: ALEJA RAMÍREZ DO 09/03/21 ALEJA RAMÍREZ DO Sep 03, 2021 14:06
[2021-09-03] MEDS ORDERED: DOXY100T2 PO (14:11)
[2021-09-03] MEDS ORDERED: IBUPROFEN 600 MG (MOTRIN) TAB PO ONE (14:15)
[2021-09-03 14:21] VITALS: BP 154/82
== END 2021-09-03 14:21 | disposition home or self-care (01) ==
LOC: ER FS 10:51
DX: J18.9 Pneumonia, unspecified organism (principal); F41.9 Anxiety disorder, unspecified; R00.0 Tachycardia, unspecified; F32.9 Major depressive disorder, single episode, unspecified; Z87.891 Personal history of nicotine dependence; Z79.82 Long term (current) use of aspirin; Z79.899 Other long term (current) drug therapy; Z79.52 Long term (current) use of systemic steroids
CPT/HCPCS: 36415; 71045; 80053; 81000; 83605; 85025; 87040; 87077; 87088; 87186

== ENCOUNTER 2022-02-23 12:52 | Emergency (ER) | payer OTHER ==
[~2022-02-23] VITALS: Ht 167.7 cm; Wt 168.2 kg
[~2022-02-23 12:52] MED LIST changes: +DOXY100T2 PO; -DULO60CA6 PO; +DULO60CA7 PO; +MONT-40 PO; -MONT10TA32 PO
[2022-02-23] MEDS ORDERED: morphine INJ 10 MG/ML 1ML (SYR OR VIAL) IVP STA (13:10)
[2022-02-23] MEDS ORDERED: ONDANSETRON 4 MG/2 ML (SDV) Z0FRAN IVP ONE ×2 (13:15→14:30)
[2022-02-23 13:18] LABS: BASOPHILS % (AUTO) 0 % (0-10); EOSINOPHILS % (AUTO) 0 % (0-10); HEMATOCRIT 37 % (35-52); HEMOGLOBIN 11.9 g/dL (11.5-16.0); LYMPHOCYTES # (AUTO) 0.9 10^3/uL (1.0-4.0); LYMPHOCYTES % (AUTO) 10 % (12-44); MEAN CORPUSCULAR HEMOGLOBIN 28 pg (25-34); MEAN CORPUSCULAR HGB CONC 32 g/dL (32-36); MEAN CORPUSCULAR VOLUME 88 fL (80-99); MONOCYTES # (AUTO) 0.2 10^3/uL (0.0-1.0); MONOCYTES % (AUTO) 2 % (0-12); NEUTROPHILS # (AUTO) 8.1 10^3/uL (1.8-7.8); NEUTROPHILS % (AUTO) 86 % (42-75); PLATELET COUNT 257 10^3/uL (130-400); WHITE BLOOD COUNT 9.4 10^3/uL (4.3-11.0)
--- NOTE | 2022-02-23 13:24 | ED Abdominal Pain ---
General Chief Complaint: Abdominal/GI Problems Stated Complaint: ABDOMINAL PAIN Source of Information: Patient Exam Limitations: No Limitations History of Present Illness Date Seen by Provider: Feb 23, 2022 Time Seen by Provider: 13:00 Initial Comments Patient is a 42-year-old female with history of chronic constipation who presents with diffuse epigastric pain starting earlier today. Pain is described as dull, rated moderate to severe is nonmigratory and nonradiating. It waxes and wanes and is worse with position change and movement. Is not relieved with rest.. Patient also reports nausea without vomiting. No fever chills or sweats. Patient has not had a bowel movement in several days. She is currently out of Colace, and took MiraLAX prior to ED arrival with improvement. Previous cholecystectomy, and abdominal hysterectomy. No history of bowel obstruction. No other acute symptoms or complaints Timing/Duration: 4-6 Hours Severity/Quality: Moderate Location: Other Radiation: Other Activities at Onset: Other Modifying Factors: Improves With Other Associated Symptoms: Other Allergies and Home Medications Allergies Coded Allergies: Sulfa (Sulfonamide Antibiotics) (Verified Allergy, Unknown, 01/23/20) Patient Home Medication List Home Medication List Reviewed: Yes Albuterol/Ipratropium (Combivent Respimat Inhal [place]) 4 Gm Aero, 0 GM IH RTQID Prescribed by: TRINH ARNDT on 04/01/20 1234 Alprazolam (Xanax) 1 Mg Tablet, 1 MG PO TID PRN for ANXIETY, (Reported) Entered as Reported by: MICHELLE DIETRICH on 01/23/20 0934 Aripiprazole (Abilify) 10 Mg Tablet, 10 MG PO DAILY, (Reported) Entered as Reported by: ALAN FIELDS on 01/23/20 0917 Aspirin/Acetaminophen/Caffeine (Excedrin Migraine Caplet) 1 Each Tablet, 2 EACH PO Q6-8HR PRN for Headache, (Reported) Entered as Reported by: MONIQUE KIRK on 03/30/20 1058 Cyclobenzaprine HCl (Cyclobenzaprine HCl) 5 Mg Tablet, 5 MG PO TID PRN for MUSCLE SPASMS, (Reported) Entered as Reported by: MONIQUE KIRK on 03/30/20 1055 Doxycycline Hyclate (Doxycycline Hyclate) 100 Mg Tablet, 100 MG PO BID Prescribed by: ALEJA RAMÍREZ on 09/03/21 1411 Duloxetine HCl (Cymbalta) 60 Mg Capsule.dr, 60 MG PO DAILY, (Reported) Entered as Reported by: MICHELLE DIETRICH on 01/23/20 09 Fluticasone/Salmeterol (Advair Hfa 115-21 Mcg Inhaler) 12 Gm Hfa.aer.ad, 2 PUFF IH RTBID Prescribed by: TRINH ARNDT on 04/01/20 1234 Gabapentin (Neurontin) 300 Mg Capsule, 300 MG PO DAILY, (Reported) Entered as Reported by: MONIQUE KIRK on 03/30/20 1055 Gabapentin (Neurontin) 300 Mg Capsule, 300-600 MG PO HS PRN for NERVE PAIN, (Reported) Entered as Reported by: MONIQUE KIRK on 03/30/20 1055 Levothyroxine Sodium (Levothyroxine Sodium) 137 Mcg Tablet, 137 MCG PO DAILY, (Reported) Entered as Reported by: MICHELLE DIETRICH on 01/23/20 09 Loratadine (Loratadine) 10 Mg Tablet, 10 MG PO DAILY Prescribed by: TRINH ARNDT on 04/01/20 1234 Losartan Potassium (Losartan Potassium) 50 Mg Tablet, 50 MG PO DAILY Prescribed by: TRINH ARNDT on 04/01/20 1234 Montelukast Sodium (Montelukast Sodium) 10 Mg Tablet, 10 MG PO HS Prescribed by: TRINH ARNDT on 04/01/20 1234 Naproxen (Naproxen) 500 Mg Tablet, 500 MG PO Q12H PRN for PAIN-MILD (1-4), (Reported) Entered as Reported by: MONIQUE KIRK on 03/30/20 1058 Ondansetron (Ondansetron Odt) 4 Mg Tab.rapdis, 4 MG PO Q6H PRN for NAUSEA/VOMITING-1ST LINE Prescribed by: DANIEL KHALIL on 01/25/20 1235 Prednisone (Prednisone) 10 Mg Tab.ds.pk, 10 MG PO DAILY Prescribed by: TRINH ARNDT on 04/01/20 1234 Tramadol HCl (Tramadol HCl) 50 Mg Tablet, 50 MG PO TID PRN for PAIN-MODERATE (5- 7), (Reported) Entered as Reported by: MONIQUE KIRK on 03/30/20 1055 Review of Systems Review of Systems Constitutional: see HPI EENTM: See HPI Respiratory: See HPI Gastrointestinal: See HPI Genitourinary: See HPI Musculoskeletal: see HPI Skin: see HPI Psychiatric/Neurological: See HPI Endocrine: See HPI Hematologic/Lymphatic: See HPI All Other Systems Reviewed Negative Unless Noted: Yes Past Bjtqayp-Ljoliw-Enqdxv Hx Patient Social History Tobacco Use?: No Smoking Status: Never a Smoker Smokeless Tobacco Frequency: Never a User Use of E-Cig and/or Vaping dev: No Use of E-Cig and/or Vaping Kg: Never a User Substance use?: Yes Substance type: Marijuana Substance frequency: Once in a while Alcohol Use?: Yes Alcohol Frequency: Rarely Pt feels they are or have been: No Immunizations Up To Date Influenza Vaccine Up-to-Date: Yes; Up-to-Date First/Initial COVID19 Vaccinat: 05/2021 Second COVID19 Vaccination [place]: 06/2021 Seasonal Allergies Seasonal Allergies: No Past Medical History Surgery/Hospitalization HX: Hypothyroid, Anxiety, Depression, GERD, Sleep Insomnia x 2, choley, Hysterectomy, Lt. leg. Surgeries: Yes Section, Gallbladder Respiratory: No Cardiac: No Neurological: No Genitourinary: No Gastrointestinal: No Musculoskeletal: No Endocrine: No HEENT: No Cancer: No Psychosocial: Yes Anxiety, Depression Integumentary: No Blood Disorders: No Family Medical History No Pertinent Family Hx Physical Exam Vital Signs Vital Signs - First Documented 02/23/22 02/23/22 12:55 14:04 Temp 36.2 Pulse 77 Resp 20 B/P (MAP) 243/123 (163) Pulse Ox 93 O2 Delivery Room Air Capillary Refill : Height/Weight/BMI Height: '" Weight: lbs. oz. kg; 60.00 BMI Method: General Appearance: moderate distress (Secondary to pain) Neck: non-tender Respiratory: lungs clear, normal breath sounds Cardiovascular: regular rate, rhythm, other Gastrointestinal: soft, distended; No guarding, No rebound; tenderness Extremities: non-tender, normal inspection Back: normal inspection Neurologic/Psychiatric: jowl trimmer II-XII nml as tested, alert, oriented x 3 Progress/Results/Core Measures Results/Orders Lab Results Laboratory Tests Test 02/23/22 13:00 Range/Units White Blood Count 9.4 4.3-11.0 10^3/uL Red Blood Count 4.22 3.80-5.11 10^6/uL Hemoglobin 11.9 11.5-16.0 g/dL Hematocrit 37 35-52 % Mean Corpuscular Volume 88 80-99 fL Mean Corpuscular Hemoglobin 28 25-34 pg Mean Corpuscular Hemoglobin Concent 32 32-36 g/dL Red Cell Distribution Width 18.0 H 10.0-14.5 % Platelet Count 257 130-400 10^3/uL Mean Platelet Volume 9.0 9.0-12.2 fL Immature Granulocyte % (Auto) 1 % Neutrophils (%) (Auto) 86 H 42-75 % Lymphocytes (%) (Auto) 10 L 12-44 % Monocytes (%) (Auto) 2 0-12 % Eosinophils (%) (Auto) 0 0-10 % Basophils (%) (Auto) 0 0-10 % Neutrophils # (Auto) 8.1 H 1.8-7.8 10^3/uL Lymphocytes # (Auto) 0.9 L 1.0-4.0 10^3/uL Monocytes # (Auto) 0.2 0.0-1.0 10^3/uL Eosinophils # (Auto) 0.0 0.0-0.3 10^3/uL Basophils # (Auto) 0.0 0.0-0.1 10^3/uL Immature Granulocyte # (Auto) 0.1 0.0-0.1 10^3/uL Sodium Level 138 135-145 MMOL/L Potassium Level 3.9 3.6-5.0 MMOL/L Chloride Level 100 98-107 MMOL/L Carbon Dioxide Level 24 21-32 MMOL/L Anion Gap 14 5-14 MMOL/L Blood Urea Nitrogen 14 7-18 MG/DL Creatinine 0.88 0.60-1.30 MG/DL Estimat Glomerular Filtration Rate 84 BUN/Creatinine Ratio 16 Glucose Level 127 H 70-105 MG/DL Calcium Level 9.3 8.5-10.1 MG/DL Corrected Calcium 9.0 8.5-10.1 MG/DL Total Bilirubin 0.3 0.1-1.0 MG/DL Aspartate Amino Transf (AST/SGOT) 17 5-34 U/L Alanine Aminotransferase (ALT/SGPT) 14 0-55 U/L Alkaline Phosphatase 112 40-136 U/L Total Protein 8.8 H 6.4-8.2 GM/DL Albumin 4.4 3.2-4.5 GM/DL My Orders Orders - ALEJA RAMÍREZ DO Cbc With Automated Diff (02/23/22 13:10) Comprehensive Metabolic Panel (02/23/22 13:10) Ua Culture If Indicated (02/23/22 13:10) Ct Abdomen/Pelvis W (02/23/22 13:10) Morphine Injection (Morphine Injection (02/23/22 13:10) Ondansetron Injection (Zofran Injectio (02/23/22 13:15) Iohexol Injection (Omnipaque 350 Mg/Ml 1 (02/23/22 13:30) Received Contrast (Hold Metformin- Contr (02/23/22 13:30) Sodium Chloride Flush (Catheter Flush Sy (02/23/22 13:30) Ns (Ivpb) (Sodium Chloride 0.9% Ivpb Bag (02/23/22 13:30) Famotidine Injection (Pepcid Injection) (02/23/22 14:30) Ketorolac Injection (Toradol Injection) (02/23/22 14:45) Medications Given in ED Current Medications Medications Dose Ordered Sig/Wilner Route Start Time Stop Time Status Last Admin Dose Admin Famotidine 20 mg ONCE ONCE IVP 02/23/22 14:30 02/23/22 14:31 DC 02/23/22 14:36 20 MG Iohexol 100 ml ONCE ONCE IV 02/23/22 13:30 02/23/22 13:31 DC 02/23/22 14:00 100 ML Ketorolac Tromethamine 30 mg ONCE ONCE IVP 02/23/22 14:45 02/23/22 14:46 DC 02/23/22 14:46 30 MG Ondansetron HCl 4 mg ONCE ONCE IVP 02/23/22 13:15 02/23/22 13:16 DC 02/23/22 13:28 4 MG Sodium Chloride 10 ml NEEDED PRN IV 02/23/22 13:30 02/23/22 14:00 10 ML Sodium Chloride 100 ml ONCE ONCE IV 02/23/22 13:30 02/23/22 13:31 DC 02/23/22 14:00 100 ML Vital Signs/I&O 4/15/22 4/15/22 12:55 14:04 Temp 36.2 Pulse 77 76 Resp 20 B/P (MAP) 243/123 (163) 185/101 Pulse Ox 93 O2 Delivery Room Air Departure Communication (Admissions) UA negative Soft, nonsurgical, nontender on repeat evaluation. Possible early appendicitis versus hernia versus kidney stone considered. Recommendations are for watchful waiting, PCP follow-up and continued supportive care. Return precautions reviewed. Patient verbalizes understanding agreement discharge instructions prior to departure. Impression Primary Impression: Suprapubic pain Disposition: HOME, SELF-CARE Condition: Stable Departure-Patient Inst. Decision time for Depature: 14:59 Referrals: LEANDER HENRIQUEZ APRN (PCP) Primary Care Physician [facility] (Family) Primary Care Physician Patient Instructions: Abdominal Pain, Adult ED ALEJA RAMÍREZ DO Feb 23, 2022 13:24
[2022-02-23] MEDS ORDERED: CATHETER FLUSH 10 ML SYR IV PRN (13:30)
[2022-02-23] MEDS ORDERED: NS 100 ML (IVPB) BAG IV ONE (13:30)
[2022-02-23] MEDS ORDERED: HOLD METFORMIN - RECEIVED CONTRAST 20 ML VIAL IV SCH (13:30)
[2022-02-23] MEDS ORDERED: IOHEXOL 350 MG/ML 100 ML (OMNIPAQUE 350) VIAL IV ONE (13:30)
[2022-02-23 13:39] LABS: BILIRUBIN,TOTAL 0.3 MG/DL (0.1-1.0); CALCIUM 9.3 MG/DL (8.5-10.1); CREATININE SERUM 0.88 MG/DL (0.60-1.30); POTASSIUM 3.9 MMOL/L (3.6-5.0); TOTAL PROTEIN 8.8 GM/DL (6.4-8.2)
[2022-02-23 13:40] LABS: ALBUMIN 4.4 GM/DL (3.2-4.5)
--- NOTE | 2022-02-23 14:14 | Diagnostic Imaging Report ---
PROCEDURE: CT abdomen and pelvis with contrast. TECHNIQUE: Multiple contiguous axial images were obtained through the abdomen and pelvis after administration of intravenous contrast. Auto Exposure Controls were utilized during the CT exam to meet ALARA standards for radiation dose reduction. All CT scans use one or more of the following dose optimizing techniques: automated exposure control, MA and/or KvP adjustment based on patient size and exam type or iterative reconstruction. INDICATION: Epigastric abdominal pain. Nausea. COMPARISON: 01/23/2020 FINDINGS: Included portions of the lung bases are clear. CT ABDOMEN: Infraumbilical hernia is identified and contains multiple loops of small bowel. [place] measures 4.5 x 2.2 cm in diameter. Proximal small bowel loops are nondistended. There is no evidence of obstruction. Normal appendix cannot be adequately identified, but there is no pericecal inflammation. The kidneys, adrenal glands, spleen, and pancreas have a normal CT appearance. Evaluation of the liver demonstrates areas of decreased attenuation adjacent to the gallbladder fossa as well as centrally around the IVC. This may be on the basis of areas of focal fatty infiltrate. No enhancing hepatic mass type lesions are seen. There is normal enhancement of the portal and hepatic veins. There is no loculated fluid collection, free fluid or free air within the abdomen. No abnormal mesenteric or retroperitoneal adenopathy is seen. Osseous structures show no acute abnormalities. CT PELVIS: Urinary bladder is unopacified. No calculi are seen within the urinary bladder. There is no loculated fluid collection, free fluid or free air within the pelvis. Osseous structures show no acute abnormalities. IMPRESSION: 1. Infraumbilical hernia containing loops of small bowel. No evidence of obstruction. 2. Probable areas of focal fatty infiltrate of the liver adjacent to the gallbladder fossa and surrounding the IVC. Dictated by: Dictated on workstation # [id number]
[2022-02-23] MEDS ORDERED: FAMOTIDINE 20MG/2ML IV (PEPCID) IVP ONE (14:30)
[2022-02-23] MEDS ORDERED: KETOROLAC 30 MG/ML VIAL IVP ONE (14:45)
[2022-02-23 15:05] LABS: BILIRUBIN,URINE NEGATIVE (NEGATIVE); COLOR,URINE YELLOW; GLUCOSE, URINE (UA) NEGATIVE (NEGATIVE); KETONES,URINE NEGATIVE (NEGATIVE); LEUKOCYTE ESTERASE ,URINE NEGATIVE (NEGATIVE); NITRITE,URINE POSITIVE (NEGATIVE); PROTEIN,URINE TRACE (NEGATIVE)
[2022-02-23 15:09] LABS: BACTERIA,URINE LARGE /HPF; CLARITY,URINE CLOUDY; WBC,URINE 50-100 /HPF
[2022-02-23] MEDS ORDERED: NITR-68 PO (15:25)
[2022-02-23] MEDS ORDERED: ONDA4TAB11 PO ×2 (15:27→16:00)
[2022-02-23] MEDS ORDERED: DICY20TA PO (15:27)
[2022-02-23] MEDS ORDERED: FAMO-119 PO ×2 (15:28→16:00)
[2022-02-23] MEDS ORDERED: DOCU-143 PO ×2 (15:29→16:00)
[2022-02-23] MEDS ORDERED: NITROFURANTOIN 100 MG (MACROBID) CAPSULE PO ONE (15:30)
[2022-02-23 15:47] VITALS: BP 187/109
[2022-02-23] MEDS ORDERED: NITR-65 PO (16:00)
== END 2022-02-23 15:47 | disposition home or self-care (01) ==
LOC: EDUNIT# 12:52 → ER FS 12:55
DX: R10.30 Lower abdominal pain, unspecified (principal); Z90.49 Acquired absence of other specified parts of digestive tract
CPT/HCPCS: 36415; 74177; 80053; 81000; 85025; 87077; 87088; Q9967

== ENCOUNTER 2022-07-20 08:33 | Observation (INO) | payer OTHER ==
[~2022-07-20] VITALS: Ht 167.7 cm; Wt 130.0 kg
[~2022-07-20 08:33] MED LIST changes: -ASPI-789 PO; +ASPI1TAB23 PO; +DICY20TA PO; +DOCU-143 PO; +FAMO-119 PO; +NITR-65 PO; +NITR-68 PO
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
[2022-07-20 09:20] LABS: BASOPHILS % (AUTO) 0 % (0-10); EOSINOPHILS # (AUTO) 0.1 10^3/uL (0.0-0.3); EOSINOPHILS % (AUTO) 2 % (0-10); HEMATOCRIT 37 % (35-52); HEMOGLOBIN 11.3 g/dL (11.5-16.0); LYMPHOCYTES # (AUTO) 1.6 10^3/uL (1.0-4.0); LYMPHOCYTES % (AUTO) 17 % (12-44); MEAN CORPUSCULAR HEMOGLOBIN 27 pg (25-34); MEAN CORPUSCULAR HGB CONC 31 g/dL (32-36); MEAN CORPUSCULAR VOLUME 89 fL (80-99); MEAN PLATELET VOLUME 9.6 fL (9.0-12.2); MONOCYTES # (AUTO) 0.3 10^3/uL (0.0-1.0); MONOCYTES % (AUTO) 3 % (0-12); NEUTROPHILS # (AUTO) 7.4 10^3/uL (1.8-7.8); NEUTROPHILS % (AUTO) 78 % (42-75); PLATELET COUNT 368 10^3/uL (130-400); WHITE BLOOD COUNT 9.6 10^3/uL (4.3-11.0)
[2022-07-20 09:25] LABS: ALBUMIN 3.5 GM/DL (3.2-4.5); POTASSIUM 3.9 MMOL/L (3.6-5.0)
[2022-07-20 09:26] LABS: CALCIUM 9.1 MG/DL (8.5-10.1)
[2022-07-20 09:27] LABS: TOTAL PROTEIN 7.8 GM/DL (6.4-8.2)
[2022-07-20 09:29] LABS: BILIRUBIN,TOTAL 0.3 MG/DL (0.1-1.0)
[2022-07-20 09:31] LABS: CREATININE SERUM 0.81 MG/DL (0.60-1.30)
--- NOTE | 2022-07-20 09:41 | Diagnostic Imaging Report ---
INDICATION: double vision acutely TECHNIQUE: Routine non contrast-enhanced axial images were obtained from the skull base to the vertex. Auto Exposure Controls were utilized during the CT exam to meet ALARA standards for radiation dose reduction COMPARISON: None. FINDINGS: The ventricles and cortical sulci are normal in size and contour. There is no midline shift or mass-effect. No acute intra-axial hemorrhage is seen. There are no abnormal areas of increased or decreased density to suggest acute hemorrhage or edema. No extra-axial masses or collections are present. The bony calvarium is intact. The visualized paranasal sinuses are unremarkable. The mastoid air cells are clear. IMPRESSION: 1. No acute intracranial abnormality. No CT evidence of mass, acute infarct or intracranial hemorrhage. Dictated by: Dictated on workstation # [id number]
[2022-07-20] MEDS ORDERED: CATHETER FLUSH 10 ML SYR IV PRN (10:00)
[2022-07-20] MEDS ORDERED: IOHEXOL 350 MG/ML 100 ML (OMNIPAQUE 350) VIAL IV ONE (10:00)
[2022-07-20] MEDS ORDERED: HOLD METFORMIN - RECEIVED CONTRAST 20 ML VIAL IV SCH (10:00)
[2022-07-20] MEDS ORDERED: NS 100 ML (IVPB) BAG IV ONE (10:00)
[2022-07-20 10:18] LABS: BILIRUBIN,URINE NEGATIVE (NEGATIVE); CLARITY,URINE CLEAR; COLOR,URINE YELLOW; GLUCOSE, URINE (UA) NEGATIVE (NEGATIVE); KETONES,URINE NEGATIVE (NEGATIVE); LEUKOCYTE ESTERASE ,URINE 2+ (NEGATIVE); NITRITE,URINE POSITIVE (NEGATIVE); PROTEIN,URINE NEGATIVE (NEGATIVE)
--- NOTE | 2022-07-20 10:19 | Diagnostic Imaging Report ---
INDICATION: Dizziness, diplopia, "not feeling right". Lower extremity tingling with some head pain. TECHNIQUE: Post IV contrast-enhanced CT angiogram head performed with 2-D and 3-D reconstructions. CORRELATED with earlier noncontrast enhanced head CT. The delayed postcontrast enhanced head CT revealed no abnormal parenchymal or meningeal enhancement. There were no findings of a mass. There was no contrast extravasation. There is normal enhancement of the major dural venous sinuses. CT ANGIOGRAM HEAD: The intradural vertebral arteries are patent, the left is dominant, the right nonpathologic. The basilar artery patent throughout its course. The right MANAGER OCCUPATIONAL is in origin off the carotid terminus. MANAGER OCCUPATIONAL segments bilaterally patent. The intracranial ICAs bilaterally are patent and nonacute. The A1 segments, the ACOM, the anterior cerebral arteries widely patent. The bilateral middle cerebral arterial segments and their primary branches are patent. No thrombus or large vessel occlusion. No aneurysm or vascular malformation. No hemodynamically significant focal stenosis. IMPRESSION: Unremarkable CT angiographic study of the head. Dictated by: Dictated on workstation # [id number]
[2022-07-20 10:26] LABS: BACTERIA,URINE MODERATE /HPF; RBC,URINE RARE /HPF; WBC,URINE 50-100 /HPF
[2022-07-20] MEDS ORDERED: fentaNYL INJ 100 MCG/2 ML AMP IVP ONE (10:45)
[2022-07-20 11:25] LABS: FREE T4 (FREE THYROXINE) 0.55 NG/DL (0.70-1.48)
[2022-07-20] MEDS ORDERED: ASPIRIN 81 MG CHEW (CHILDREN'S ASA) PO ONE (11:30)
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
[2022-07-20 12:49] VITALS: BP 127/85
[2022-07-20] MEDS ORDERED: BISACODYL 10 MG SUPP (DULCOLAX) PR PRN (13:00)
[2022-07-20] MEDS ORDERED: morphine INJ 4 MG/ML 1 ML (VIAL/SYRINGE) IV PRN (13:00)
[2022-07-20] MEDS ORDERED: ANTACID SUSP 30 ML UDC (MYLANTA) PO PRN (13:00)
[2022-07-20] MEDS ORDERED: CALCIUM CARBONATE 500 MG (TUMS) TAB.CHEW PO PRN (13:00)
[2022-07-20] MEDS ORDERED: LACTULOSE SYRUP 10GM/15ML (ENULOSE) 30ML UDC PO PRN (13:00)
[2022-07-20] MEDS ORDERED: NALOXONE 0.4 MG/ML 1 ML (NARCAN) VIAL IV PRN (13:00)
[2022-07-20] MEDS ORDERED: MILK OF MAGNESIA 400 MG/5 ML 30 ML UDC PO PRN (13:00)
[2022-07-20] MEDS ORDERED: diphenhydrAMINE 50 MG/ML INJ (BENADRYL) IVP PRN (13:00)
[2022-07-20] MEDS ORDERED: ONDANSETRON 4 MG (ZOFRAN) ORAL DISSOLVE TAB PO PRN (13:00)
[2022-07-20] MEDS ORDERED: MELATONIN 3 MG TABLET PO PRN (13:00)
[2022-07-20] MEDS ORDERED: diphenhydrAMINE 25 MG TAB (BENADRYL) PO PRN (13:00)
[2022-07-20] MEDS ORDERED: polyethylene glycoL POWDER 17 GM (MIRALAX) PACK PO PRN (13:00)
[2022-07-20] MEDS ORDERED: ONDANSETRON 4 MG/2 ML (SDV) Z0FRAN IV PRN (13:00)
[2022-07-20 13:24] LABS: TRIGLYCERIDES 114 MG/DL (<150); VLDL CHOLESTEROL 23 MG/DL (5-40)
--- NOTE | 2022-07-20 13:26 | Consultation-Cardiology ---
HPI-Cardiology Cardiology Consultation Date of Consultation 07/20/22 Date of Admission Time Seen by Provider: 13:23 Indication: Diplopia HPI 42-year-old lady with history of hypertension, COPD, hypothyroidism, depression and anxiety. Was coming to work today when she started to have unsteady gait and double vision. She feels dizzy and lightheaded, came into the emergency room. Still unable to open her eyes, having double vision, feeling lightheaded. She denied any chest pain, palpitation, reporting headaches occasionally, occasional migraine. No syncope. No similar episodes in the past. Home Medications & Allergies Allergies: Coded Allergies: Sulfa (Sulfonamide Antibiotics) (Verified Allergy, Unknown, 01/23/20) Home Medication List Reviewed: Yes SCO-Agdffx-Claunc Hx Patient Social History Marital Status: Employed/Student: employed Smoking Status: Former Smoker Type Used: Cigarettes 2nd Hand Smoke Exposure: Yes Recent Hopitalizations: No Have you traveled recently?: No Alcohol Use?: No Immunizations Up To Date Date of Influenza Vaccine: Nov 24, 2019 Past Medical History Discussed below Family Medical History Significant Family History: No Pertinent Family Hx Family Medical Hx Noncontributory Review of Systems-General Review of Systems Constitutional: see HPI; No chills, No fever; malaise EENTM: see HPI, blurred vision, double vision Respiratory: see HPI; No cough; short of breath Cardiovascular: see HPI; No chest pain, No edema, No Hx of Intervention, No palpitations, No syncope, No vascular heart diseas; other (chest tightness) Gastrointestinal: see HPI; No abdominal pain, No constipation, No diarrhea, No nausea, No vomiting Genitourinary: see HPI; No dysuria, No frequency Musculoskeletal: see HPI; No back pain, No muscle pain; muscle weakness (bilateral LE) Skin: No lesions, No lumps, No rash Psychiatric/Neurological: See HPI, Anxiety, Headache, Numbness, Weakness Reviewed Test Results Reviewed Test Results Lab Laboratory Tests Test 07/20/22 08:40 07/20/22 10:12 Range/Units White Blood Count 9.6 4.3-11.0 10^3/uL Red Blood Count 4.14 3.80-5.11 10^6/uL Hemoglobin 11.3 L 11.5-16.0 g/dL Hematocrit 37 35-52 % Mean Corpuscular Volume 89 80-99 fL Mean Corpuscular Hemoglobin 27 25-34 pg Mean Corpuscular Hemoglobin Concent 31 L 32-36 g/dL Red Cell Distribution Width 16.6 H 10.0-14.5 % Platelet Count 368 130-400 10^3/uL Mean Platelet Volume 9.6 9.0-12.2 fL Immature Granulocyte % (Auto) 1 % Neutrophils (%) (Auto) 78 H 42-75 % Lymphocytes (%) (Auto) 17 12-44 % Monocytes (%) (Auto) 3 0-12 % Eosinophils (%) (Auto) 2 0-10 % Basophils (%) (Auto) 0 0-10 % Neutrophils # (Auto) 7.4 1.8-7.8 10^3/uL Lymphocytes # (Auto) 1.6 1.0-4.0 10^3/uL Monocytes # (Auto) 0.3 0.0-1.0 10^3/uL Eosinophils # (Auto) 0.1 0.0-0.3 10^3/uL Basophils # (Auto) 0.0 0.0-0.1 10^3/uL Immature Granulocyte # (Auto) 0.1 0.0-0.1 10^3/uL Sodium Level 139 135-145 MMOL/L Potassium Level 3.9 3.6-5.0 MMOL/L Chloride Level 102 98-107 MMOL/L Carbon Dioxide Level 27 21-32 MMOL/L Anion Gap 10 5-14 MMOL/L Blood Urea Nitrogen 11 7-18 MG/DL Creatinine 0.81 0.60-1.30 MG/DL Estimat Glomerular Filtration Rate 93 BUN/Creatinine Ratio 14 Glucose Level 122 H 70-105 MG/DL Calcium Level 9.1 8.5-10.1 MG/DL Corrected Calcium 9.5 8.5-10.1 MG/DL Total Bilirubin 0.3 0.1-1.0 MG/DL Aspartate Amino Transf (AST/SGOT) 25 5-34 U/L Alanine Aminotransferase (ALT/SGPT) 31 0-55 U/L Alkaline Phosphatase 115 40-136 U/L Total Protein 7.8 6.4-8.2 GM/DL Albumin 3.5 3.2-4.5 GM/DL Triglycerides Level 114 <150 MG/DL VLDL Cholesterol 23 5-40 MG/DL Thyroid Stimulating Hormone (TSH) 25.07 H 0.35-4.94 UIU/ML Free Thyroxine 0.55 L 0.70-1.48 NG/DL Urine Color YELLOW Urine Clarity CLEAR Urine pH 6.0 5-9 Urine Specific [place] 1.010 L 1.016-1.022 Urine Protein NEGATIVE NEGATIVE Urine Glucose (UA) NEGATIVE NEGATIVE Urine Ketones NEGATIVE NEGATIVE Urine Nitrite POSITIVE H NEGATIVE Urine Bilirubin NEGATIVE NEGATIVE Urine Urobilinogen 0.2 < = 1.0 MG/DL Urine Leukocyte Esterase 2+ H NEGATIVE Urine RBC (Auto) TRACE-I H NEGATIVE Urine RBC RARE /HPF Urine WBC 50-100 H /HPF Urine Squamous Epithelial Cells 2-5 /HPF Urine Crystals NONE /LPF Urine Bacteria MODERATE H /HPF Urine Casts NONE /LPF Urine Mucus NEGATIVE /LPF Urine Culture Indicated YES Physical Exam Physical Exam Vital Signs Vital Signs - First Documented 07/20/22 07/20/22 08:40 12:40 Temp 36.4 Pulse 102 Resp 22 B/P (MAP) 181/119 (139) Pulse Ox 99 O2 Delivery Room Air Capillary Refill : Less Than 3 Seconds Height, Weight, BMI Height: '" Weight: lbs. oz. kg; 54.00 BMI Method: General Appearance: No Apparent Distress, Obese Eyes: Bilateral Eye Normal Inspection, Bilateral Eye PERRL, Bilateral Eye EOMI HEENT: PERRL/EOMI, Other (dry oral mucosa) Neck: Full Range of Motion, Normal Inspection Respiratory: Chest Non Tender, No Accessory Muscle Use, No Respiratory Distress, Decreased Breath Sounds (d/t body habitus) Cardiovascular: No Murmur, Tachycardia Gastrointestinal: Normal Bowel Sounds, Non Tender, Soft Back: Normal Inspection, No CVA Tenderness, No Vertebral Tenderness Extremity: Non Tender, Pedal Edema (2+ pitting edema bilaterally with visible increased diameter of LLE) Neurologic/Psychiatric: Alert, Oriented x3, Normal Mood/Affect Skin: Normal Color, Warm/Dry Lymphatic: No Adenopathy A/P-Cardiology Admission Diagnosis TIA Hypertension Hyperlipidemia Headache Assessment/Plan Double vision, nausea, vertigo. Unsteady gait. Sudden onset. Questionable TIA versus migraine. CTA of the head did not show any acute abnormality. I will evaluate 2D echo, started on aspirin and Plavix. Hypertension, restart home medication monitor blood pressure Hyperlipidemia, monitor lipids Depression/anxiety, followed and managed by primary care physician Questionable underlying sleep apnea, discussed the need to be evaluated BMI 54, discussed weight loss and exercise. Fibromyalgia HERLINDA WANG MD Jul 20, 2022 13:26
[2022-07-20 13:29] LABS: CHOLESTEROL 177 MG/DL (< 200)
[2022-07-20 13:30] LABS: HDL CHOLESTEROL 48 MG/DL (40-60)
[2022-07-20] MEDS ORDERED: LEVOTHYROXINE 50 MCG (LEVOTHROID) TAB PO NR (13:30)
--- NOTE | 2022-07-20 13:36 | Speech Therapy Progress Note ---
Therapy Progress Note Speech pathology received consultation and reviewed the chart. The clinician attempted the consultation at 1320. At this time, the patient is undergoing an assessment by staff. ST will re-attempt as able and appropriate. To note, if the patient is being assessed via stroke protocol, a RN Dysphagia Screening should be completed. CECILIA CHU Jul 20, 2022 13:36
[2022-07-20 13:56] VITALS: BP 181/119
[2022-07-20] MEDS: NS IV 1000 ML 1,000 ML IV SCH (14:19)
[2022-07-20] MEDS: ENOXAPARIN 60 MG/0.6 ML (LOVENOX) SYR SC SCH (14:19)
[2022-07-20] MEDS: cefTRIAXone 1 GM PRE-MIX 50 ML IV SCH (14:19)
[2022-07-20] MEDS ORDERED: KCL 20 MEQ TAB (K-DUR) PO ONE ×2 (14:30→16:30)
[2022-07-20] MEDS: inSUlin ASPART (NovoLOG) 1 UNIT/0.01 ML (CHARGE PER UNIT) SC SCH ×2 (15:06→21:27)
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
[2022-07-20] MEDS ORDERED: ASPI1TAB23 PO (15:19)
[2022-07-20] MEDS ORDERED: IBUP-2473 PO (15:19)
[2022-07-20] MEDS ORDERED: PREG150C46 PO (15:19)
[2022-07-20] MEDS ORDERED: ALPR1TAB7 PO (15:19)
[2022-07-20] MEDS ORDERED: LORA1TAB48 PO (15:19)
[2022-07-20] MEDS ORDERED: ACET-2267 PO (15:19)
[2022-07-20] MEDS ORDERED: FAMO20TA5 PO (15:19)
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
[2022-07-20 16:27] VITALS: BP 140/95
[2022-07-20] MEDS: RT-ALBUTEROL/IPRATROPIUM 3 ML (DUONEB) VIAL INH SCH ×2 (16:35→21:59)
--- NOTE | 2022-07-20 16:51 | Diagnostic Imaging Report ---
PROCEDURE: US carotid duplex, bilateral. TECHNIQUE: Multiple real-time grayscale images were obtained over the carotid arteries in various projections, bilaterally. Additional spectral analysis and color Doppler duplex images were also obtained. INDICATION: Neurologic deficit. FINDINGS: Grayscale images show minimal atherosclerotic plaque at the carotid bifurcations. Doppler analysis did not show any significant alteration of the waveforms or velocities. Both vertebral arteries are patent with antegrade flow. IMPRESSION: Mild atherosclerotic changes at the carotid bifurcations but no hemodynamically significant stenosis. Parameters based on the consensus panel Bernstein-Scale and Doppler ultrasound criteria published September 2003, Radiology, Volume 229. DOPPLER (peak systolic velocity M/S Right Left CCA 1.1 .85 ICA Proximal .68 .70 ICA Mid .58 .57 ICA Distal .69 .63 RATIO .76 .69 ECA 1.6 .86 VERT .56 .74 Dictated by: Dictated on workstation # [id number]
[2022-07-20] MEDS ORDERED: RT-ALBUTEROL/IPRATROPIUM 3 ML (DUONEB) VIAL INH PRN (17:00)
[2022-07-20] MEDS: ACETAMINOPHEN 325 MG TABLET PO PRN (19:45)
[2022-07-20 20:02] LABS: AMPHETAMINE SCREEN, URINE NEGATIVE (NEGATIVE); BARBITURATE SCREEN URINE NEGATIVE (NEGATIVE); BENZODIAZEPINES SCREEN URINE POSITIVE (NEGATIVE); CANNABINOID SCREEN, URINE POSITIVE (NEGATIVE); COCAINE SCREEN URINE NEGATIVE (NEGATIVE); METHADONE STAT NEGATIVE (NEGATIVE); OPIATE SCREEN URINE NEGATIVE (NEGATIVE); OXYCODONE STAT NEGATIVE (NEGATIVE); PROPOXYPHENE STAT NEGATIVE (NEGATIVE); TRICYCLIC ANTIDEPRESSANTS SCRE NEGATIVE (NEGATIVE)
[2022-07-20 20:04] VITALS: BP 152/92
[2022-07-20] MEDS: SENNOSIDES 8.6 MG (SENOKOT) TAB PO SCH (21:26)
[2022-07-20] MEDS: DOCUSATE SODIUM 100 MG (COLACE) CAP PO SCH (21:26)
[2022-07-21] VITALS: BP 128/82
[2022-07-21] MEDS: ENOXAPARIN 60 MG/0.6 ML (LOVENOX) SYR SC SCH (01:47)
[2022-07-21] MEDS: NS IV 1000 ML 1,000 ML IV SCH (01:47)
[2022-07-21 04:00] VITALS: BP 149/97
[2022-07-21] MEDS: ACETAMINOPHEN 325 MG TABLET PO PRN (04:33)
[2022-07-21] MEDS: inSUlin ASPART (NovoLOG) 1 UNIT/0.01 ML (CHARGE PER UNIT) SC SCH ×2 (06:00→11:56)
[2022-07-21 06:19] LABS: BASOPHILS % (AUTO) 0 % (0-10); EOSINOPHILS # (AUTO) 0.1 10^3/uL (0.0-0.3); EOSINOPHILS % (AUTO) 2 % (0-10); HEMATOCRIT 35 % (35-52); HEMOGLOBIN 10.9 g/dL (11.5-16.0); LYMPHOCYTES # (AUTO) 1.2 10^3/uL (1.0-4.0); LYMPHOCYTES % (AUTO) 18 % (12-44); MEAN CORPUSCULAR HEMOGLOBIN 27 pg (25-34); MEAN CORPUSCULAR HGB CONC 31 g/dL (32-36); MEAN CORPUSCULAR VOLUME 89 fL (80-99); MEAN PLATELET VOLUME 9.7 fL (9.0-12.2); MONOCYTES # (AUTO) 0.3 10^3/uL (0.0-1.0); MONOCYTES % (AUTO) 4 % (0-12); NEUTROPHILS # (AUTO) 5.3 10^3/uL (1.8-7.8); NEUTROPHILS % (AUTO) 75 % (42-75); PLATELET COUNT 333 10^3/uL (130-400); WHITE BLOOD COUNT 7.1 10^3/uL (4.3-11.0)
[2022-07-21] MEDS ORDERED: LEVOTHYROXINE 50 MCG (LEVOTHROID) TAB PO SCH (06:30)
[2022-07-21 06:38] LABS: ALBUMIN 3.4 GM/DL (3.2-4.5); POTASSIUM 3.8 MMOL/L (3.6-5.0)
[2022-07-21 06:39] LABS: CALCIUM 8.9 MG/DL (8.5-10.1)
[2022-07-21 06:41] LABS: TOTAL PROTEIN 7.6 GM/DL (6.4-8.2)
[2022-07-21 06:42] LABS: BILIRUBIN,TOTAL 0.4 MG/DL (0.1-1.0)
[2022-07-21 06:44] LABS: CREATININE SERUM 0.7 MG/DL (0.60-1.30)
[2022-07-21 08:00] VITALS: BP 139/98
[2022-07-21] MEDS: RT-ALBUTEROL/IPRATROPIUM 3 ML (DUONEB) VIAL INH SCH ×2 (08:40→11:18)
[2022-07-21] MEDS ORDERED: ASPIRIN 81 MG CHEW (CHILDREN'S ASA) PO SCH (09:00)
--- NOTE | 2022-07-21 09:18 | Cardiology Progress Note ---
Subjective Date Seen by Provider: Jul 21, 2022 Time Seen by Provider: 09:17 Subjective/Events-last exam Patient was seen at bedside, sitting comfortably Feeling better, reporting improvement in her symptoms Review of Systems General: No Chills, No Night Sweats, No Fatigue, No Malaise, No Appetite, No Other HEENT: No Head Aches, No Visual Changes, No Eye Pain, No Ear Pain, No Dysphasia, No Sinus Congestion, No Post Nasal Drip, No Sore Throat, No Other Pulmonary: No Dyspnea, No Cough, No Pleuritic Chest Pain, No Other Cardiovascular: No: Chest Pain, Palpitations, Orthopnea, Paroxysmal Noc. Dyspnea, Edema, Lt Headedness, Other Objective-Cardiology Exam Last Set of Vital Signs Vital Signs 07/20/22 07/20/22 07/21/22 13:56 16:35 08:00 Temp 36.0 Pulse 93 Resp 18 B/P (MAP) 139/98 (112) Pulse Ox 95 O2 Delivery Room Air O2 Flow Rate 0.00 FiO2 21 I&O Intake and Output 07/21/22 00:00 Intake Total 200 ml Balance 200 ml Intake Oral 200 ml # Voids 1 Daily Weight Change No General: Alert, Oriented X3, Cooperative HEENT: Atraumatic, PERRLA Neck: Supple, No JVD, No Thyromegaly Lungs: Clear to Auscultation, Normal Air Movement Heart: Regular Rate, Normal S1, Normal S2, No Murmurs Abdomen: Normal Bowel Sounds, Soft, No Tenderness, No Hepatosplenomegaly, No Masses Extremities: No Clubbing, No Cyanosis, No Edema, Normal Pulses, No Tenderness/Swelling Skin: No Rashes, No Breakdown, No Significant Lesion Neuro: Normal Gait, Normal Speech, Strength at 5/5 X4 Ext, Normal Tone, Sensation Intact Psych/Mental Status: Mental Status NL, Mood NL Results Lab Laboratory Tests 07/21/22 05:40 A/P-Cardiology Admission Diagnosis TIA Hypertension Hyperlipidemia Headache Assessment/Plan Double vision, nausea, vertigo. Unsteady gait. Sudden onset. Questionable TIA versus migraine. CTA of the head did not show any acute abnormality. I will evaluate 2D echo, started on aspirin and Plavix. Managed by medical team Hypertension, starting losartan 50 mg daily Continue to monitor blood pressure Hyperlipidemia, well controlled Continue to monitor lipids Depression/anxiety, followed and managed by primary care physician Questionable underlying sleep apnea, discussed the need to be evaluated BMI 54, discussed weight loss and exercise. Fibromyalgia HERLINDA WANG MD Jul 21, 2022 09:18
[2022-07-21] MEDS ORDERED: LOSARTAN 50 MG (COZAAR) TAB PO SCH (09:30)
[2022-07-21] MEDS: SENNOSIDES 8.6 MG (SENOKOT) TAB PO SCH (09:46)
[2022-07-21] MEDS: DOCUSATE SODIUM 100 MG (COLACE) CAP PO SCH (09:46)
[2022-07-21] MEDS ORDERED: ACETAMINOPHEN 500 MG TAB (TYLENOL) PO PRN (10:00)
[2022-07-21] MEDS ORDERED: ALPRAZolam 1 MG (XANAX) TAB PO PRN (10:00)
[2022-07-21] MEDS ORDERED: IBUPROFEN TABLET 200 MG TAB PO PRN (10:00)
[2022-07-21] MEDS ORDERED: NON-FORMULARY MEDICATION 1 EA EA (Aspirin/Acetaminophen/Caffeine (Excedrin Migraine Caplet PO PRN (10:00)
[2022-07-21] MEDS ORDERED: LEVO137T32 PO (10:08)
[2022-07-21] MEDS ORDERED: CEFD300C3 PO (10:08)
--- NOTE | 2022-07-21 10:10 | Discharge Summary ---
Discharge Summary Hospital Course Was the Problem List Reviewed?: Yes Problems/Dx: (1) Double vision with both eyes open Status: Acute (2) Hypothyroidism Status: Acute Qualifiers: Qualified Codes: E03.9 - Hypothyroidism, unspecified Hospital Course Date of Admission: Jul 20, 2022 at 12:12 Admission Diagnosis : Family Physician/Provider: Ximena Sharma Aprn Date of Discharge: 07/21/22 Discharge Diagnosis: AMS, diplopia, THC use, non-compliant with thyroid supplement Hospital Course: Overnight course after admitted for concern of CVA. CVA w/u was negative in ER and patient had to high of BMI for MRI. Vitals remained stable and stroke protocol ordered and overall she was found to be stable and improved and no evidence of CVA on repeat CT brain so she was DC home. Labs and Pending Lab Test: Laboratory Tests 07/20/22 10:12: Urine Color YELLOW, Urine Clarity CLEAR, Urine pH 6.0, Urine Specific [place] 1.010L, Urine Protein NEGATIVE, Urine Glucose (UA) NEGATIVE, Urine Ketones NEGATIVE, Urine Nitrite POSITIVEH, Urine Bilirubin NEGATIVE, Urine Urobilinogen 0.2, Urine Leukocyte Esterase 2+H, Urine RBC (Auto) TRACE-IH, Urine RBC RARE, Urine WBC 50-100H, Urine Squamous Epithelial Cells 2-5, Urine Crystals NONE, Urine Bacteria MODERATEH, Urine Casts NONE, Urine Mucus NEGATIVE, Urine Culture Indicated YES 07/20/22 15:26: Glucometer 89 07/20/22 19:33: Bedside Blood Gas pH (LAB) 7.406, Bedside Blood Gas pCO2 (LAB) 44.8, Bedside Blood Gas pO2 (LAB) 68L, Bedside Blood Gas HCO3 (LAB) 28.1H, POC Blood Gas Total CO2 Calc 29, Bedside Bl Gas O2 Saturation (Calc) 93L, Bedside Arterial Blood Base Excess 3 07/20/22 19:40: Urine Opiates Screen NEGATIVE, Urine Oxycodone Screen NEGATIVE, Urine Methadone Screen NEGATIVE, Urine Propoxyphene Screen NEGATIVE, Urine Barbiturates Screen NEGATIVE, Ur Tricyclic Antidepressants Screen NEGATIVE, Urine Phencyclidine Screen NEGATIVE, Urine Amphetamines Screen NEGATIVE, Urine Methamphetamines Screen NEGATIVE, Urine Benzodiazepines Screen POSITIVEH, Urine Cocaine Screen NEGATIVE, Urine Cannabinoids Screen POSITIVEH 07/20/22 20:14: Glucometer 90 07/21/22 05:40: White Blood Count 7.1, Red Blood Count 4.00, Hemoglobin 10.9L, Hematocrit 35, Mean Corpuscular Volume 89, Mean Corpuscular Hemoglobin 27, Mean Corpuscular Hemoglobin Concent 31L, Red Cell Distribution Width 16.8H, Platelet Count 333, Mean Platelet Volume 9.7, Immature Granulocyte % (Auto) 1, Neutrophils (%) (Auto) 75, Lymphocytes (%) (Auto) 18, Monocytes (%) (Auto) 4, Eosinophils (%) (Auto) 2, Basophils (%) (Auto) 0, Neutrophils # (Auto) 5.3, Lymphocytes # (Auto) 1.2, Monocytes # (Auto) 0.3, Eosinophils # (Auto) 0.1, Basophils # (Auto) 0.0, Immature Granulocyte # (Auto) 0.1, Sodium Level 138, Potassium Level 3.8, Chloride Level 102, Carbon Dioxide Level 25, Anion Gap 11, Blood Urea Nitrogen 9, Creatinine 0.70, Estimat Glomerular Filtration Rate 111, BUN/Creatinine Ratio 13, Glucose Level 101, Calcium Level 8.9, Corrected Calcium 9.4, Total Bilirubin 0.4, Aspartate Amino Transf (AST/SGOT) 21, Alanine Aminotransferase (ALT/SGPT) 26, Alkaline Phosphatase 115, Total Protein 7.6, Albumin 3.4 07/21/22 06:09: Glucometer 104 Microbiology 07/20/22 Urine Culture - Preliminary, Resulted Probable E.coli Home Meds Active Synthroid (Levothyroxine Sodium) 137 Mcg Tablet 137 Mcg PO DAILY Cefdinir 300 Mg Capsule 300 Mg PO BID Reported Ibuprofen 200 Mg Tablet 400-600 Mg PO Q8H PRN Tylenol Extra Strength (Acetaminophen) 500 Mg Tablet 1,000 Mg PO Q8H PRN Excedrin Migraine Caplet (Aspirin/Acetaminophen/Caffeine) 250 Mg-250 Mg-65 Mg Tablet 2 Each PO Q6-8HR PRN Famotidine 20 Mg Tablet 20 Mg PO HS Alprazolam 1 Mg Tablet 1 Mg PO DAILY PRN Pregabalin 150 Mg Capsule 150 Mg PO TID Loratadine-D 24Hr Tablet (Loratadine/Pseudoephedrine) 10 Mg-240 Mg Tab.er.24h 1 Each PO DAILY PRN Tramadol HCl 50 Mg Tablet 100 Mg PO Q6H PRN TAKES 2 (50MG) TABS Cyclobenzaprine HCl 5 Mg Tablet 5 Mg PO TID PRN Xanax (Alprazolam) 1 Mg Tablet 1 Mg PO BID Cymbalta (Duloxetine HCl) 60 Mg Capsule.dr 60 Mg PO BID Abilify (Aripiprazole) 10 Mg Tablet 10 Mg PO DAILY Assessment/Pt Instructions PCP 1 week Discharge Planning: <30 minutes discharge planning Discharge Instructions Discharge Diet: No Restrictions Discharge Physical Examination Vital Signs Vital Signs Date Time Temp Pulse Resp B/P (MAP) Pulse Ox O2 Delivery O2 Flow Rate FiO2 07/21/22 08:00 36.0 93 18 139/98 (112) 95 Room Air 07/20/22 16:35 0.00 07/20/22 13:56 21 General Appearance: No Apparent Distress, WD/WN, Chronically ill, Obese Allergies: Coded Allergies: Sulfa (Sulfonamide Antibiotics) (Verified Allergy, Unknown, 01/23/20) Discharge Summary Date of Admission Jul 20, 2022 at 12:12 Date of Discharge Discharge Date: Jul 21, 2022 Admission Diagnosis Assessment: AMS Diplopia acute Morbid obesity Former smoker Mental illness UTI Abnormal TSH non-compliant with meds Plan: CVA w/u Tely Cards ECHO Discharge Diagnosis (1) Double vision with both eyes open Status: Acute (2) Hypothyroidism Status: Acute Qualifiers: Qualified Codes: E03.9 - Hypothyroidism, unspecified TRINH ARNDT DO Jul 21, 2022 10:10
[2022-07-21] MEDS ORDERED: CYCLOBENZAPRINE 10 MG (FLEXERIL) TAB PO PRN (10:30)
--- NOTE | 2022-07-21 11:57 | Diagnostic Imaging Report ---
PROCEDURE: CT head without contrast. TECHNIQUE: Multiple contiguous axial images were obtained through the brain without the use of intravenous contrast. Auto Exposure Controls were utilized during the CT exam to meet ALARA standards for radiation dose reduction. INDICATION: CVA. FINDINGS: The ventricles and sulci are within normal limits. There is no hydrocephalus or cerebral edema. There is no midline shift or mass effect. There is no intracranial mass, hemorrhage, or extra-axial fluid collection. The visualized paranasal sinuses and mastoid air cells are clear. There are no regional areas of decreased attenuation appreciated to suggest an acute CVA. IMPRESSION: No acute intracranial abnormality. Dictated by: Dictated on workstation # [id number]
[2022-07-21] MEDS ORDERED: LORATADINE (CLARITIN) 10 MG TAB PO PRN (12:00)
[2022-07-21] MEDS ORDERED: PSEUDOEPHEDRINE HCL 30 MG (SUDAFED) TAB PO PRN (12:00)
[2022-07-21] MEDS: cefTRIAXone 1 GM PRE-MIX 50 ML IV SCH (12:33)
[2022-07-21] MEDS ORDERED: PREGABALIN 150 MG (LYRICA) CAPSULE PO SCH (13:00)
[2022-07-21] MEDS ORDERED: ENOXAPARIN 40 MG/0.4 ML (LOVENOX) SYR SC SCH (13:45)
[2022-07-21] MEDS ORDERED: ALPRAZolam 1 MG (XANAX) TAB PO SCH (21:00)
[2022-07-21] MEDS ORDERED: FAMOTIDINE 20 MG (PEPCID) TABLET PO SCH (21:00)
[2022-07-21] MEDS ORDERED: DULoxetine 30 MG (CYMBALTA) CAP PO SCH (21:00)
== END 2022-07-21 12:20 | disposition home or self-care (01) ==
LOC: EDUNIT# 08:33 → ER 08:35 → CSD 12:12 → UNDOADMOB 12:12 → CSD 14:47 → UNDODISOB 07-21 15:00
PROVIDERS: ADMIT Internal Medicine; ATTEND Internal Medicine
DX: H53.2 Diplopia (principal); R41.82 Altered mental status, unspecified; E03.9 Hypothyroidism, unspecified; N30.00 Acute cystitis without hematuria; Z87.891 Personal history of nicotine dependence; E66.01 Morbid (severe) obesity due to excess calories; Z79.899 Other long term (current) drug therapy
CPT/HCPCS: 70450 ×2; 70496; 80053 ×2; 80061; 80306; 81000; 82805; 82947 ×2; 83036; 84439; 84443; 85025 ×2; 87077; 87088; 87186; 93005; 93306; 93880; 94640; 94664; 96372; 96374; 96375; 97161; 97165; 97535; 99284; G0378; 36415

== ENCOUNTER 2022-10-18 15:28 | Emergency (ER) | payer OTHER ==
[~2022-10-18] VITALS: Ht 167.7 cm; Wt 154.2 kg
[~2022-10-18 15:28] MED LIST changes: +ACET-2267 PO; +ALPR1TAB7 PO; +CEFD300C3 PO; +FAMO20TA5 PO; +IBUP-2473 PO; +LEVO137T32 PO; +LORA1TAB48 PO; +PREG150C46 PO
--- NOTE | 2022-10-18 15:45 | ED Cardiac General ---
History of Present Illness General Chief Complaint: Chest Pain Stated Complaint: CP,SOB History of Present Illness Date Seen by Provider: Oct 18, 2022 Time Seen by Provider: 15:45 Initial Comments 42-year-old female with PMH of anxiety/hypothyroidism, is here with complaints of severe anxiety and chest pressure which has been going on today. Patient normally takes Xanax for her anxiety but she had signed a drug contract with her PCP, and she was found to have marijuana in her system and so she is unable to get a refill for her Xanax. Patient no longer wants to take marijuana and wants to go back on her prescription medication. Patient also complains of dysuria for the past few days. She is also being treated for strep throat with amoxicillin and has almost completed her antibiotic duration. Denies palpitations, shortness of breath, abdominal pain, fever, diarrhea, dizziness. ASA po HOME HEALTH TRAVEL PT: No Allergies and Home Medications Allergies Coded Allergies: Sulfa (Sulfonamide Antibiotics) (Verified Allergy, Unknown, 01/23/20) Patient Home Medication List Home Medication List Reviewed: Yes Acetaminophen (Tylenol Extra Strength) 500 Mg Tablet, 1,000 MG PO Q8H PRN for PAIN-MILD (1-4), (Reported) Entered as Reported by: MONIQUE KIRK on 07/20/22 1519 Alprazolam (Xanax) 1 Mg Tablet, 1 MG PO BID, (Reported) Entered as Reported by: MICHELLE DIETRICH on 01/23/20 0934 Alprazolam (Alprazolam) 1 Mg Tablet, 1 MG PO DAILY PRN for ANXIETY, (Reported) Entered as Reported by: MONIQUE KIRK on 07/20/22 151 Aripiprazole (Abilify) 10 Mg Tablet, 10 MG PO DAILY, (Reported) Entered as Reported by: ALAN FIELDS on 01/23/20 0917 Aspirin/Acetaminophen/Caffeine (Excedrin Migraine Caplet) 250 Mg-250 Mg-65 Mg Tablet, 2 EACH PO Q6-8HR PRN for Headache, (Reported) Entered as Reported by: MONIQUE KIRK on 07/20/22 151 Cefdinir (Cefdinir) 300 Mg Capsule, 300 MG PO BID Prescribed by: TRINH ARNDT on 07/21/22 1008 Cyclobenzaprine HCl (Cyclobenzaprine HCl) 5 Mg Tablet, 5 MG PO TID PRN for MUSCLE SPASMS, (Reported) Entered as Reported by: MONIQUE KIRK on 03/30/20 1055 Duloxetine HCl (Cymbalta) 60 Mg Capsule.dr, 60 MG PO BID, (Reported) Entered as Reported by: MICHELLE DIETRICH on 01/23/20 0931 Famotidine (Famotidine) 20 Mg Tablet, 20 MG PO HS, (Reported) Entered as Reported by: MONIQUE KIRK on 07/20/22 1519 Ibuprofen (Ibuprofen) 200 Mg Tablet, 400-600 MG PO Q8H PRN for PAIN-MILD (1-4), (Reported) Entered as Reported by: MONQIUE KIRK on 07/20/22 1519 Levothyroxine Sodium (Synthroid) 137 Mcg Tablet, 137 MCG PO DAILY Prescribed by: TRINH ARNDT on 07/21/22 1008 Loratadine/Pseudoephedrine (Loratadine-D 24Hr Tablet) 10 Mg-240 Mg Tab.er.24h, 1 EACH PO DAILY PRN for ALLERGY SYMPTOMS, (Reported) Entered as Reported by: MONIQUE KIRK on 07/20/22 1519 Pregabalin (Pregabalin) 150 Mg Capsule, 150 MG PO TID, (Reported) Entered as Reported by: MONIQUE KIRK on 07/20/22 1519 Tramadol HCl (Tramadol HCl) 50 Mg Tablet, 100 MG PO Q6H PRN for PAIN-MODERATE (5-7), (Reported) Entered as Reported by: MONIQUE KIRK on 03/30/20 1055 Review of Systems Review of Systems Constitutional: no symptoms reported EENTM: No Symptoms Reported Respiratory: No Symptoms Reported Cardiovascular: See HPI Gastrointestinal: No Symptoms Reported Genitourinary: No Symptoms Reported Musculoskeletal: no symptoms reported Skin: no symptoms reported Psychiatric/Neurological: Anxiety, Emotional Problems Endocrine: No Symptoms Reported Hematologic/Lymphatic: No Symptoms Reported Past Crxsygi-Irepek-Herpxo Hx Patient Social History Tobacco Use?: No Smoking Status: Never a Smoker Smokeless Tobacco Frequency: Never a User Use of E-Cig and/or Vaping dev: No Use of E-Cig and/or Vaping Kg: Never a User Substance use?: Yes Substance type: Marijuana Substance frequency: Daily Alcohol Use?: No Pt feels they are or have been: No Immunizations Up To Date First/Initial COVID19 Vaccinat: 05/2021 Second COVID19 Vaccination [place]: 06/2021 Seasonal Allergies Seasonal Allergies: No Past Medical History Surgery/Hospitalization HX: Hypothyroid, Anxiety, Depression, GERD, Sleep Insomnia x 2, choley, Hysterectomy, Lt. leg. Surgeries: Yes Section, Gallbladder Respiratory: No Pneumonia Cardiac: No High Cholesterol, Hypertension Neurological: No Genitourinary: No Gastrointestinal: No Musculoskeletal: No Endocrine: No Hypothyroidsim HEENT: No Cancer: No Psychosocial: Yes Anxiety, Depression Integumentary: No Blood Disorders: No Family Medical History No Pertinent Family Hx Physical Exam Vital Signs Vital Signs - First Documented 10/18/22 15:30 Temp 36.3 Pulse 98 Resp 24 B/P (MAP) 177/107 (130) Pulse Ox 97 O2 Delivery Room Air Capillary Refill : Less Than 3 Seconds Height, Weight, BMI Height: '" Weight: lbs. oz. kg; 46.22 BMI Method: General Appearance: No Apparent Distress, WD/WN HEENT: PERRL/EOMI, Normal ENT Inspection Neck: Full Range of Motion, Normal Inspection Respiratory: Chest Non Tender, Lungs Clear, Normal Breath Sounds, No Accessory Muscle Use, No Respiratory Distress Cardiovascular: Regular Rate, Rhythm, No Edema, No Murmur Gastrointestinal: Non Tender, Soft Extremity: Normal Range of Motion Neurologic/Psychiatric: Alert, Oriented x3, No Motor/Sensory Deficits, Normal Mood/Affect, Other (Severe anxiety) Skin: Normal Color Lymphatic: No Adenopathy Progress/Results/Core Measures Results/Orders Lab Results Laboratory Tests Test 10/18/22 15:35 10/18/22 16:53 Range/Units White Blood Count 9.7 4.3-11.0 10^3/uL Red Blood Count 4.87 3.80-5.11 10^6/uL Hemoglobin 12.8 11.5-16.0 g/dL Hematocrit 41 35-52 % Mean Corpuscular Volume 83 80-99 fL Mean Corpuscular Hemoglobin 26 25-34 pg Mean Corpuscular Hemoglobin Concent 32 32-36 g/dL Red Cell Distribution Width 15.7 H 10.0-14.5 % Platelet Count 412 H 130-400 10^3/uL Mean Platelet Volume 9.1 9.0-12.2 fL Immature Granulocyte % (Auto) 1 % Neutrophils (%) (Auto) 71 42-75 % Lymphocytes (%) (Auto) 22 12-44 % Monocytes (%) (Auto) 4 0-12 % Eosinophils (%) (Auto) 1 0-10 % Basophils (%) (Auto) 0 0-10 % Neutrophils # (Auto) 6.9 1.8-7.8 10^3/uL Lymphocytes # (Auto) 2.1 1.0-4.0 10^3/uL Monocytes # (Auto) 0.4 0.0-1.0 10^3/uL Eosinophils # (Auto) 0.1 0.0-0.3 10^3/uL Basophils # (Auto) 0.0 0.0-0.1 10^3/uL Immature Granulocyte # (Auto) 0.1 0.0-0.1 10^3/uL Prothrombin Time 13.3 12.2-14.7 SEC INR Comment 1.0 0.8-1.4 Activated Partial Thromboplast Time 31 24-35 SEC D-Dimer 0.83 H 0.00-0.49 UG/ML Sodium Level 142 135-145 MMOL/L Potassium Level 3.5 L 3.6-5.0 MMOL/L Chloride Level 105 98-107 MMOL/L Carbon Dioxide Level 25 21-32 MMOL/L Anion Gap 12 5-14 MMOL/L Blood Urea Nitrogen 15 7-18 MG/DL Creatinine 0.70 0.60-1.30 MG/DL Estimat Glomerular Filtration Rate 111 BUN/Creatinine Ratio 21 Glucose Level 103 70-105 MG/DL Calcium Level 9.7 8.5-10.1 MG/DL Corrected Calcium 9.6 8.5-10.1 MG/DL Magnesium Level 2.1 1.6-2.4 MG/DL Total Bilirubin 0.2 0.1-1.0 MG/DL Aspartate Amino Transf (AST/SGOT) 13 5-34 U/L Alanine Aminotransferase (ALT/SGPT) 12 0-55 U/L Alkaline Phosphatase 148 H 40-136 U/L Troponin I < 0.30 <0.30 NG/ML Pro-B-Type Natriuretic Peptide 22.9 <125.0 PG/ML Total Protein 8.8 H 6.4-8.2 GM/DL Albumin 4.1 3.2-4.5 GM/DL Urine Color YELLOW Urine Clarity CLOUDY Urine pH 6.5 5-9 Urine Specific [place] 1.025 H 1.016-1.022 Urine Protein NEGATIVE NEGATIVE Urine Glucose (UA) NEGATIVE NEGATIVE Urine Ketones NEGATIVE NEGATIVE Urine Nitrite POSITIVE H NEGATIVE Urine Bilirubin NEGATIVE NEGATIVE Urine Urobilinogen 0.2 < = 1.0 MG/DL Urine Leukocyte Esterase 1+ H NEGATIVE Urine RBC (Auto) TRACE-I H NEGATIVE Urine RBC 2-5 H /HPF Urine WBC 50-100 H /HPF Urine Squamous Epithelial Cells 10-25 H /HPF Urine Crystals NONE /LPF Urine Bacteria LARGE H /HPF Urine Casts NONE /LPF Urine Mucus LARGE H /LPF Urine Culture Indicated YES Urine Opiates Screen NEGATIVE NEGATIVE Urine Oxycodone Screen NEGATIVE NEGATIVE Urine Methadone Screen NEGATIVE NEGATIVE Urine Propoxyphene Screen NEGATIVE NEGATIVE Urine Barbiturates Screen NEGATIVE NEGATIVE Ur Tricyclic Antidepressants Screen NEGATIVE NEGATIVE Urine Phencyclidine Screen NEGATIVE NEGATIVE Urine Amphetamines Screen NEGATIVE NEGATIVE Urine Methamphetamines Screen NEGATIVE NEGATIVE Urine Benzodiazepines Screen NEGATIVE NEGATIVE Urine Cocaine Screen NEGATIVE NEGATIVE Urine Cannabinoids Screen POSITIVE H NEGATIVE My Orders Orders - LISA HERNANDES MD Ekg Tracing (10/18/22 15:29) Cbc With Automated Diff (10/18/22 15:48) Magnesium (10/18/22 15:48) Chest 1 View Ap/Pa Only (10/18/22 15:48) Ekg Tracing (10/18/22 15:48) Comprehensive Metabolic Panel (10/18/22 15:48) Protime With Inr (10/18/22 15:48) Partial Thromboplastin Time (10/18/22 15:48) O2 (10/18/22 15:48) Monitor-Rhythm Ecg Trace Only (10/18/22 15:48) Aspirin Chewable Tablet (Baby Aspirin Ch (10/18/22 16:00) Ed Iv/Invasive Line Start (10/18/22 15:48) Fibrin Degradation Products (10/18/22 15:48) Troponin I Fs (10/18/22 15:48) Probnp Fs (10/18/22 15:48) Drug Screen Stat (Urine) (10/18/22 15:49) Ua Culture If Indicated (10/18/22 15:49) Ct Angio Chest W (10/18/22 16:48) Iohexol Injection (Omnipaque 350 Mg/Ml 1 (10/18/22 17:00) Received Contrast (Hold Metformin- Contr (10/18/22 17:00) Sodium Chloride Flush (Catheter Flush Sy (10/18/22 17:00) Ns (Ivpb) (Sodium Chloride 0.9% Ivpb Bag (10/18/22 17:00) Urine Culture (10/18/22 16:53) Ceftriaxone 1 Gm Pre-Mix (Rocephin 1 Gm (10/18/22 17:11) Medications Given in ED Current Medications Medications Dose Ordered Sig/Wilner Route Start Time Stop Time Status Last Admin Dose Admin Aspirin 324 mg ONCE ONCE PO 10/18/22 16:00 10/18/22 16:01 DC 10/18/22 16:01 324 MG Iohexol 100 ml ONCE ONCE IV 10/18/22 17:00 10/18/22 17:05 DC 10/18/22 17:16 100 ML Sodium Chloride 10 ml NEEDED PRN IV 10/18/22 17:00 10/18/22 17:16 10 ML Sodium Chloride 100 ml ONCE ONCE IV 10/18/22 17:00 10/18/22 17:01 DC 10/18/22 17:16 100 ML Vital Signs/I&O 10/18/22 10/18/22 15:30 15:30 Temp 36.3 Pulse 98 Resp 24 B/P (MAP) 177/107 (130) Pulse Ox 97 O2 Delivery Room Air Room Air Progress Progress Note : Progress Note 1. ANXIETY & MARIJUANA INDUCED CHEST PAIN:ACS RULED OUT - CXR: - Labs: overallunremarkable. normal WBC - Troponin/ EKG: Nonischemic - ASA 324mf STAT -Advised to stop using marijuana -Hydroxyzine 25 mg once stat -Hydroxyzine prescription given for anxiety as needed -Advised to follow-up with psychiatry clinic in the next 3 to 7 days. -The patient was seen in the ED, and treated appropriately to presentation at a specific point in time. Patient is informed that there is a possibility that disease and illness can evolve and change in acuity rapidly or slowly after patient is discharged from the ER. Precautionary advice given to the patient for immediate return to ER if symptoms worsen or do not resolve, and to seek em ergency care sooner rather than later. Pt also advised on the importance of PCP follow up and compliance with management and follow up plan with PCP and/or specialist, as this is part of the management plan. Pt verbally expressed understanding. 2. ACUTE CYSTITIS WITH HEMATURIA: - UA is positive for leukocyte esterase, nitrates, RBC, WBC, and bacteria -Ceftriaxone 1 g IV stat in ER -Perscription for cefpodoxime 100 mg twice daily for 7 days -Adequate hydration advised -Follow-up with PCP within the next 7 days 3. ELEVATED D-DIMER: - -dimer: 0.83 - CTA CHEST: negative for PE Diagnostic Imaging Diagonstic Imaging: Xray Plain Films/CT/US/NM/MRI: chest Comments [email or web address] [place], [place] NAME: PIA GARCIA [facility] REC#: [id number] PT STATUS: REG ER : 1980 PHYSICIAN: LISA HERNANDES MD ADMIT DATE: 10/18/22/ER FS Signed Date of Exam:10/18/22 CT ANGIO CHEST W INDICATION: Chest pain, elevated D-dimer. TECHNIQUE: Multiple contiguous axial images were obtained through the chest after uneventful bolus administration of intravenous contrast. 3D reconstructed CTA MIP acquisitions were also performed. Auto Exposure Controls were utilized during the CT exam to meet ALARA standards for radiation dose reduction. Comparison made with 03/29/2020. FINDINGS: The pulmonary parenchymal vessels are well opacified with no CT evidence of pulmonary emboli. The thoracic aorta shows no evidence of aneurysm or dissection. Great vessel origins are patent and without stenosis. There are no enlarged mediastinal or hilar nodes. There are no enlarged axillary nodes or chest wall lesions. There is no pleural or pericardial fluid. Visualized portions of the upper abdomen appear normal. Lung parenchymal windows show no acute abnormality; there is some scarring or atelectasis in the right lung posteriorly and in the upper lobe. IMPRESSION: No CT evidence of pulmonary emboli or acute aortic pathology. No acute process in the chest. Dictated by: Dictated on workstation # [id number] Dict: 10/18/221722 Trans: 10/18/221736 [id number] Interpreted by: EVA BERTRAND MD Electronically signed by: EVA BERTRAND MD 10/18/221736 [email or web address] [place] NAME: PIA GARCIA [facility] REC#: [id number] PT STATUS: REG ER : 1980 PHYSICIAN: LISA HERNANDES MD ADMIT DATE: 10/18/22/ER FS Draft Date of Exam:10/18/22 CHEST 1 VIEW AP/PA ONLY Indication: Chest pain Frontal chest obtained at 3:55 p.m. Heart is borderline in size. There is central vascular congestion. There is no focal infiltrate or pneumothorax or pleural fluid. Impression: Central vascular congestion with no focal infiltrate or pleural fluid. Dictated on workstation # [id number] Dict: 10/18/22 1614 Trans: 10/18/22 1616 CVB [id number] Interpreted by: EVA BERTRAND MD Electronically signed by: Departure Impression Primary Impression: Acute cystitis with hematuria Additional Impressions: Anxiety Chest pain Qualified Codes: R07.9 - Chest pain, unspecified Elevated d-dimer Marijuana abuse Disposition: HOME, SELF-CARE Condition: Stable Departure-Patient Inst. Referrals: [facility] (PCP) Primary Care Physician LEANDER HENRIQUEZ APRN (Family) Primary Care Physician Patient Instructions: Anxiety, Adult ED, Urinary Tract Infection, Adult (DC), Marijuana Use and Addiction Add. Discharge Instructions: -Advised to stop using marijuana -Hydroxyzine 25 mg once stat -Hydroxyzine prescription given for anxiety as needed -Advised to follow-up with psychiatry clinic in the next 3 to 7 days. -Perscription for cefpodoxime 100 mg twice daily for 7 days -Adequate hydration advised -Follow-up with PCP within the next 7 days All discharge instructions reviewed with patient and/or family. Voiced understanding. Scripts Hydroxyzine HCl (Hydroxyzine HCl) 50 Mg Tablet 50 MG PO TID for Anxiety for 7 Days, #30 TAB Prov: LISA HERNANDES MD 10/18/22 Cefpodoxime Proxetil (Cefpodoxime Proxetil) 100 Mg Tablet 100 MG PO Q12H for 7 Days, #14 TAB Prov: LISA HERNANDES MD 10/18/22 LISA HERNANDES MD Oct 18, 2022 15:45
[2022-10-18] MEDS ORDERED: ASPIRIN 81 MG CHEW (CHILDREN'S ASA) PO ONE (16:00)
[2022-10-18 16:11] LABS: BASOPHILS % (AUTO) 0 % (0-10); EOSINOPHILS # (AUTO) 0.1 10^3/uL (0.0-0.3); EOSINOPHILS % (AUTO) 1 % (0-10); HEMATOCRIT 41 % (35-52); HEMOGLOBIN 12.8 g/dL (11.5-16.0); LYMPHOCYTES # (AUTO) 2.1 10^3/uL (1.0-4.0); LYMPHOCYTES % (AUTO) 22 % (12-44); MEAN CORPUSCULAR HEMOGLOBIN 26 pg (25-34); MEAN CORPUSCULAR HGB CONC 32 g/dL (32-36); MEAN CORPUSCULAR VOLUME 83 fL (80-99); MEAN PLATELET VOLUME 9.1 fL (9.0-12.2); MONOCYTES # (AUTO) 0.4 10^3/uL (0.0-1.0); MONOCYTES % (AUTO) 4 % (0-12); NEUTROPHILS # (AUTO) 6.9 10^3/uL (1.8-7.8); NEUTROPHILS % (AUTO) 71 % (42-75); PLATELET COUNT 412 10^3/uL (130-400); WHITE BLOOD COUNT 9.7 10^3/uL (4.3-11.0)
[2022-10-18 16:14] LABS: CALCIUM 9.7 MG/DL (8.5-10.1); CREATININE SERUM 0.7 MG/DL (0.60-1.30); MAGNESIUM 2.1 MG/DL (1.6-2.4); POTASSIUM 3.5 MMOL/L (3.6-5.0); PROTHROMBIN TIME PATIENT 13.3 SEC (12.2-14.7)
[2022-10-18 16:15] LABS: ALBUMIN 4.1 GM/DL (3.2-4.5); BILIRUBIN,TOTAL 0.2 MG/DL (0.1-1.0); TOTAL PROTEIN 8.8 GM/DL (6.4-8.2)
--- NOTE | 2022-10-18 16:16 | Diagnostic Imaging Report ---
Indication: Chest pain Frontal chest obtained at 3:55 p.m. Heart is borderline in size. There is central vascular congestion. There is no focal infiltrate or pneumothorax or pleural fluid. Impression: Central vascular congestion with no focal infiltrate or pleural fluid. Dictated by: Dictated on workstation # [id number]
[2022-10-18 16:57] LABS: BILIRUBIN,URINE NEGATIVE (NEGATIVE); CLARITY,URINE CLOUDY; COLOR,URINE YELLOW; GLUCOSE, URINE (UA) NEGATIVE (NEGATIVE); KETONES,URINE NEGATIVE (NEGATIVE); LEUKOCYTE ESTERASE ,URINE 1+ (NEGATIVE); NITRITE,URINE POSITIVE (NEGATIVE); PH,URINE 6.5 (5-9); PROTEIN,URINE NEGATIVE (NEGATIVE)
[2022-10-18] MEDS ORDERED: IOHEXOL 350 MG/ML 100 ML (OMNIPAQUE 350) VIAL IV ONE (17:00)
[2022-10-18] MEDS ORDERED: NS 100 ML (IVPB) BAG IV ONE (17:00)
[2022-10-18] MEDS ORDERED: CATHETER FLUSH 10 ML SYR IV PRN (17:00)
[2022-10-18] MEDS ORDERED: HOLD METFORMIN - RECEIVED CONTRAST 20 ML VIAL IV SCH (17:00)
[2022-10-18 17:07] LABS: BACTERIA,URINE LARGE /HPF; WBC,URINE 50-100 /HPF
[2022-10-18 17:08] LABS: AMPHETAMINE SCREEN, URINE NEGATIVE (NEGATIVE); BARBITURATE SCREEN URINE NEGATIVE (NEGATIVE); BENZODIAZEPINES SCREEN URINE NEGATIVE (NEGATIVE); CANNABINOID SCREEN, URINE POSITIVE (NEGATIVE); COCAINE SCREEN URINE NEGATIVE (NEGATIVE); METHADONE STAT NEGATIVE (NEGATIVE); OPIATE SCREEN URINE NEGATIVE (NEGATIVE); OXYCODONE STAT NEGATIVE (NEGATIVE); TRICYCLIC ANTIDEPRESSANTS SCRE NEGATIVE (NEGATIVE)
[2022-10-18 17:09] LABS: PROPOXYPHENE STAT NEGATIVE (NEGATIVE)
[2022-10-18] MEDS ORDERED: cefTRIAXone 1 GM PRE-MIX 50 ML IV STA (17:11)
--- NOTE | 2022-10-18 17:29 | Diagnostic Imaging Report ---
INDICATION: Chest pain, elevated D-dimer. TECHNIQUE: Multiple contiguous axial images were obtained through the chest after uneventful bolus administration of intravenous contrast. 3D reconstructed CTA MIP acquisitions were also performed. Auto Exposure Controls were utilized during the CT exam to meet ALARA standards for radiation dose reduction. Comparison made with 03/29/2020. FINDINGS: The pulmonary parenchymal vessels are well opacified with no CT evidence of pulmonary emboli. The thoracic aorta shows no evidence of aneurysm or dissection. Great vessel origins are patent and without stenosis. There are no enlarged mediastinal or hilar nodes. There are no enlarged axillary nodes or chest wall lesions. There is no pleural or pericardial fluid. Visualized portions of the upper abdomen appear normal. Lung parenchymal windows show no acute abnormality; there is some scarring or atelectasis in the right lung posteriorly and in the upper lobe. IMPRESSION: No CT evidence of pulmonary emboli or acute aortic pathology. No acute process in the chest. Dictated by: Dictated on workstation # [id number]
[2022-10-18] MEDS ORDERED: hydrOXYzine (VISTARIL/ATARAX) 25 MG capsule/tablet ONE (18:20)
[2022-10-18] MEDS ORDERED: hydrOXYzine (VISTARIL/ATARAX) 25 MG capsule/tablet PO ONE (18:30)
[2022-10-18] MEDS ORDERED: CEFP100T2 PO (18:38)
[2022-10-18] MEDS ORDERED: HYDR50TA76 PO (18:38)
[2022-10-18 18:49] VITALS: BP 158/89
== END 2022-10-18 18:49 | disposition home or self-care (01) ==
LOC: EDUNIT# 15:28 → ER FS 15:29
DX: R07.89 Other chest pain (principal); F41.9 Anxiety disorder, unspecified; N30.01 Acute cystitis with hematuria; R79.1 Abnormal coagulation profile; F12.10 Cannabis abuse, uncomplicated
CPT/HCPCS: 36415; 71045; 71275; 80053; 80306; 81000; 83735; 83880; 84484; 85025; 85379; 85610; 85730; 87077; 87088; 87186; 93005; 93041; Q9967

== ENCOUNTER 2023-08-24 12:30 | Emergency (ER) | payer SELFPAY ==
[~2023-08-24] VITALS: Ht 167.7 cm; Wt 154.2 kg
[~2023-08-24 12:30] MED LIST changes: +CEFP100T2 PO; +HYDR50TA76 PO; -PREG150C46 PO; +PREG150C47 PO
--- NOTE | 2023-08-24 12:47 | ED Lower Extremity ---
General Chief Complaint: Trauma-Non Activation Stated Complaint: RT ANKLE PAIN Source: patient, EMS Exam Limitations: no limitations History of Present Illness Date Seen by Provider: Aug 24, 2023 Time Seen by Provider: 12:31 Initial Comments 43-year-old female presents emergency department today via ambulance for right foot ankle and knee pain. She states she slipped on wet grass in her yard. She has been able to bear weight since that time. The worst pain is in her right distal ankle laterally. No other injury. She did not hit her head or lose consciousness. All other systems reviewed and negative except documented per HPI. Voice recognition software was used to help create this chart Allergies and Home Medications Allergies Coded Allergies: Sulfa (Sulfonamide Antibiotics) (Verified Allergy, Unknown, 01/23/20) Patient Home Medication List Home Medication List Reviewed: Yes Acetaminophen (Tylenol Extra Strength) 500 Mg Tablet, 1,000 MG PO Q8H PRN for PAIN-MILD (1-4), (Reported) Entered as Reported by: MONIQUE KIRK on 07/20/22 1519 Alprazolam (Xanax) 1 Mg Tablet, 1 MG PO BID, (Reported) Entered as Reported by: MICHELLE DIETRICH on 01/23/20 0934 Alprazolam (Alprazolam) 1 Mg Tablet, 1 MG PO DAILY PRN for ANXIETY, (Reported) Entered as Reported by: MONIQUE KIRK on 07/20/22 1519 Aripiprazole (Abilify) 10 Mg Tablet, 10 MG PO DAILY, (Reported) Entered as Reported by: ALAN FIELDS on 01/23/20 0917 Aspirin/Acetaminophen/Caffeine (Excedrin Migraine Caplet) 250 Mg-250 Mg-65 Mg Tablet, 2 EACH PO Q6-8HR PRN for Headache, (Reported) Entered as Reported by: MONIQUE KIRK on 07/20/22 1519 Cefdinir (Cefdinir) 300 Mg Capsule, 300 MG PO BID Prescribed by: TRINH ARNDT on 07/21/22 1008 Cefpodoxime Proxetil (Cefpodoxime Proxetil) 100 Mg Tablet, 100 MG PO Q12H Prescribed by: LISA HERNANDES MD on 10/18/22 1838 Cyclobenzaprine HCl (Cyclobenzaprine HCl) 5 Mg Tablet, 5 MG PO TID PRN for MUSCLE SPASMS, (Reported) Entered as Reported by: MONIQUE KIRK on 03/30/20 1055 Duloxetine HCl (Cymbalta) 60 Mg Capsule.dr, 60 MG PO BID, (Reported) Entered as Reported by: MICHELLE DIETRICH on 01/23/20 0931 Famotidine (Famotidine) 20 Mg Tablet, 20 MG PO HS, (Reported) Entered as Reported by: MONIQUE KIRK on 07/20/22 1519 Hydroxyzine HCl (Hydroxyzine HCl) 50 Mg Tablet, 50 MG PO TID Prescribed by: LISA HERNANDES MD on 10/18/22 1838 Ibuprofen (Ibuprofen) 200 Mg Tablet, 400-600 MG PO Q8H PRN for PAIN-MILD (1-4), (Reported) Entered as Reported by: MONIQUE KIRK on 07/20/22 151 Levothyroxine Sodium (Synthroid) 137 Mcg Tablet, 137 MCG PO DAILY Prescribed by: TRINH ARNDT on 07/21/22 1008 Loratadine/Pseudoephedrine (Loratadine-D 24Hr Tablet) 10 Mg-240 Mg Tab.er.24h, 1 EACH PO DAILY PRN for ALLERGY SYMPTOMS, (Reported) Entered as Reported by: MONIQUE KIRK on 07/20/22 1519 Pregabalin (Pregabalin) 150 Mg Capsule, 150 MG PO TID, (Reported) Entered as Reported by: MONIQUE KIRK on 07/20/22 1519 Tramadol HCl (Tramadol HCl) 50 Mg Tablet, 100 MG PO Q6H PRN for PAIN-MODERATE (5-7), (Reported) Entered as Reported by: MONIQUE KIRK on 03/30/20 1055 Review of Systems Constitutional: see HPI Past [id number] Hx Patient Social History Tobacco Use?: No Smoking Status: Former Smoker Smokeless Tobacco Frequency: Never a User Use of E-Cig and/or Vaping dev: Yes E-Cig or Vaping type used: Marijuana Use of E-Cig and/or Vaping Kg: Light User Substance use?: No Alcohol Use?: Yes Alcohol Frequency: Once in a while Pt feels they are or have been: No Immunizations Up To Date First/Initial COVID19 Vaccinat: 05/2021 Second COVID19 Vaccination [place]: 06/2021 Seasonal Allergies Seasonal Allergies: No Past Medical History Surgery/Hospitalization HX: Hypothyroid, Anxiety, Depression, GERD, Sleep Insomnia x 2, choley, Hysterectomy, Lt. leg. Surgeries: Yes Section, Gallbladder Respiratory: No Pneumonia Cardiac: No High Cholesterol, Hypertension Neurological: No Genitourinary: No Gastrointestinal: No Musculoskeletal: No Endocrine: No Hypothyroidsim HEENT: No Cancer: No Psychosocial: Yes Anxiety, Depression Integumentary: No Blood Disorders: No Family Medical History No Pertinent Family Hx Physical Exam Vital Signs Vital Signs - First Documented Capillary Refill : Height, Weight, BMI Height: '" Weight: lbs. oz. kg; 54.00 BMI Method: General Appearance: WD/WN, no apparent distress Respiratory: chest non-tender Gastrointestinal: normal bowel sounds, non tender, soft Back: normal inspection, no vertebral tenderness Hips: bilateral hip non-tender, bilateral hip normal inspection, bilateral hip normal range of motion Legs: right leg other (Tenderness palpation distal to the knee tib-fib area, most of the pain is laterally near the fibular shaft. No deformity or swelling.) Knees: bilateral knee non-tender, bilateral knee normal inspection, bilateral knee normal range of motion Ankles: right ankle other (Tenderness palpation of the right lateral ankle at the distal tip of the malleolus.) Feet: right foot other (Tenderness palpation right midfoot laterally. No obvious deformity, swelling. Neurovascular and sensory intact throughout the right lower extremity.) Neurologic/Tendon: normal sensation, normal motor functions, normal tendon functions Skin: normal color, warm/dry Progress/Results/Core Measures Results/Orders My Orders Orders - CHASTITY FUENTES DO Foot 3 View Right (08/24/23 12:45) Ankle 3 View Right (08/24/23 12:45) Tibia Fibula 2 View Right (08/24/23 12:45) Hydrocodone/Apap 5/325 Tablet (Hydrocod (08/24/23 13:45) Medications Given in ED Current Medications Medications Dose Ordered Sig/Wilner Route Start Time Stop Time Status Last Admin Dose Admin Acetaminophen/ Hydrocodone Bitart 1 ea ONCE ONCE PO 08/24/23 13:45 08/24/23 13:46 DC 08/24/23 13:53 1 EA Vital Signs/I&O 08/24/23 08/24/23 12:30 12:30 Temp 36.9 36.9 Pulse 95 95 Resp 18 18 B/P (MAP) 150/93 (112) 150/93 (112) Pulse Ox 95 O2 Delivery Room Air Room Air Departure Communication (Admissions) Patient is hemodynamically stable. Neurovascular and sensory intact. X-rays of the areas in question throughout the right extremity are negative. She is given crutches for comfort. I did give her p.o. hydrocodone but recommended Motrin and Tylenol as needed for pain going forward. She will ice the area and elevate it when needed. Return to the emergency department for any severe concerns. Impression Primary Impression: Fall Qualified Codes: W19.XXXA - Unspecified fall, initial encounter Additional Impressions: Right foot pain Right ankle pain Qualified Codes: M25.571 - Pain in right ankle and joints of right foot Pain in right smith Disposition: HOME, SELF-CARE Condition: Stable Departure-Patient Inst. Referrals: LEANDER HENRIQUEZ APRN (PCP/Family) Primary Care Physician Patient Instructions: Foot Sprain (DC), Ankle sprain Add. Discharge Instructions: Use ibuprofen and Tylenol as needed for pains. Use the crutches as needed but you can bear weight as tolerated. Return to the emergency department for any severe concerns. Follow with your primary doctor for any nonemergent needs All discharge instructions reviewed with patient and/or family. Voiced understanding. CHASTITY FUENTES DO Aug 24, 2023 12:47
--- NOTE | 2023-08-24 13:40 | Diagnostic Imaging Report ---
INDICATION: Fall, pain. FINDINGS: A 3 view right foot was performed. There are arthritic changes to the forefoot, greatest at the 1st MTP where there is a bunion deformity. There is dorsal swelling over the distal midfoot and forefoot. No gas or opaque foreign body. No bony erosion or destruction. No acute periosteal reaction. No fracture. IMPRESSION: Swelling and chronic degenerative and arthritic changes but no fracture or acute bony abnormality is identified. Dictated by: Dictated on workstation # [id number]
--- NOTE | 2023-08-24 13:40 | Diagnostic Imaging Report ---
INDICATION: Pain, fall. FINDINGS: A 3 view right ankle was performed. No fracture, dislocation, or acute articular irregularity. IMPRESSION: Unremarkable 3 view right ankle. Dictated by: Dictated on workstation # [id number]
--- NOTE | 2023-08-24 13:41 | Diagnostic Imaging Report ---
INDICATION: Pain following fall. FINDINGS: A two-view right tibia-fibula was performed with the ankle included in the [id number] at dedicated ankle radiographs. No midshaft or proximal tibial or fibular injury. The knee is arthritic but nonacute. IMPRESSION: No acute appearing abnormality. Dictated by: Dictated on workstation # [id number]
[2023-08-24] MEDS ORDERED: HYDROcodone/ACETAMINOPHEN 5 MG/325 MG TABLET PO ONE (13:45)
[2023-08-24 14:16] VITALS: BP 139/86
== END 2023-08-24 14:16 | disposition home or self-care (01) ==
LOC: ER FS 12:30 → EDUNIT# 12:30 → ER FS 14:16
DX: M79.671 Pain in right foot (principal); M25.571 Pain in right ankle and joints of right foot; M79.661 Pain in right lower leg; Z87.891 Personal history of nicotine dependence; W01.0XXA Fall on same level from slipping, tripping and stumbling without subsequent striking against object, initial encounter; Y92.096 Garden or yard of other non-institutional residence as the place of occurrence of the external cause
CPT/HCPCS: 73590; 73610; 73630